=== PATIENT | female | born 1995 | race Caucasian/White ===

== ENCOUNTER 2020-05-01 14:50 | Emergency (ER) | payer OTHER ==
[~2020-05-01] VITALS: Ht 152.4 cm; Wt 65.3 kg
[2020-05-01 14:52] VITALS: BP 135/75
== END 2020-05-01 16:13 | disposition left against medical advice (07) ==
LOC: M ED 14:50
DX: Z53.21 Procedure and treatment not carried out due to patient leaving prior to being seen by health care provider (principal)

== ENCOUNTER → 2020-05-01 | Outpatient (CLI) | payer OTHER | LOC: M LAB 14:22 | PROVIDERS: ATTEND Nurse Practitioner Family | DX: Z01.89 Encounter for other specified special examinations (principal) ==

== ENCOUNTER → 2020-05-01 | Outpatient (REF) | payer OTHER | LOC: M SFHCLERA 13:34 | PROVIDERS: ATTEND Nurse Practitioner Family | DX: Z01.89 Encounter for other specified special examinations (principal) ==

== ENCOUNTER 2020-06-28 13:44 | Emergency (ER) | payer OTHER ==
[~2020-06-28] VITALS: Ht 154.9 cm; Wt 66.9 kg
[2020-06-28] MEDS ORDERED: PREN1TAB18 PO (14:09)
[2020-06-28 15:04] LABS: BASO % 0.5 % (0.0-1.0); EOS # 0.1 10^3/uL (0.0-0.5); EOS % 0.8 % (0.0-3.0); HEMATOCRIT 38.1 % (36.0-47.0); HEMOGLOBIN 12.6 g/dl (12.0-15.5); LYMPH # 1.7 10^3/uL (1.5-5.0); LYMPH % 20.5 % (24.0-44.0); MEAN CORPUSCULAR HEMOGLOBIN 29.8 pg (27.0-33.0); MEAN CORPUSCULAR HGB CONC 33.1 g/dl (32.0-36.5); MEAN CORPUSCULAR VOLUME 90.1 fl (80.0-96.0); MONO # 0.6 10^3/uL (0.0-0.8); MONO % 6.9 % (0.0-5.0); NEUTROPHILS # 5.9 10^3/uL (1.5-8.5); NEUTROPHILS % 70.5 % (36.0-66.0); PLATELET COUNT, AUTOMATED 217 10^3/uL (150-450); RED BLOOD COUNT 4.23 10^6/uL (4.00-5.40); WHITE BLOOD COUNT 8.3 10^3/uL (4.0-10.0)
[2020-06-28 16:05] LABS: ALBUMIN 3.4 GM/DL (3.2-5.2); ALT/SGPT 11 U/L (12-78); BILIRUBIN,DIRECT < 0.1 MG/DL (0.0-0.2); BILIRUBIN,TOTAL 0.3 MG/DL (0.2-1.0); BLOOD UREA NITROGEN 11 MG/DL (7-18); CALCIUM LEVEL 8.6 MG/DL (8.5-10.1); CARBON DIOXIDE LEVEL 27 MEQ/L (21-32); CHLORIDE LEVEL 109 MEQ/L (98-107); GLOMERULAR FILTRATION RATE > 60.0 (>60); GLUCOSE, FASTING 76 MG/DL (70-100); HCG, SERUM QUANTITATIVE 35516 MIU/ML; LIPASE 85 U/L (73-393); SODIUM LEVEL 141 MEQ/L (136-145); TOTAL PROTEIN 6.6 GM/DL (6.4-8.2)
--- NOTE | 2020-06-28 16:09 | REP ---
INDICATION: pelvic cramping. COMPARISON: None TECHNIQUE: Transvesical imaging FINDINGS: Within the uterus there is an anechoic structure with increased echoes surrounding it consistent with a decidual reaction. Within the gestational sac there is echogenic material consistent with a pole the mean crown-rump length measurement which is consistent with a 12 week 5 day gestational age. Based on that the estimated dated delivery is 01/05/2021. Doppler interrogation of the heart is a heart rate of 155 beats per minute. Also seen within the gestational sac there is a tiny accept act. The developing placenta is anterior. IMPRESSION: Early OB ultrasound as described above. <Electronically signed by Alexandro Garcia > 06/28/20 [id number]
[2020-06-28 16:55] VITALS: BP 123/58
== END 2020-06-28 17:02 | disposition home or self-care (01) ==
LOC: M ED 13:44
DX: O26.891 Other specified pregnancy related conditions, first trimester (principal); R10.2 Pelvic and perineal pain; Z3A.12 12 weeks gestation of pregnancy; O99.331 Smoking (tobacco) complicating pregnancy, first trimester; F17.210 Nicotine dependence, cigarettes, uncomplicated

== ENCOUNTER 2020-07-06 08:05 | Emergency (ER) | payer OTHER ==
[~2020-07-06] VITALS: Ht 154.9 cm; Wt 67.0 kg
[~2020-07-06 08:05] MED LIST: PREN1TAB18 PO
[2020-07-06] MEDS ORDERED: METOCLOPRAMIDE 10 MG TAB PO ONE (08:45)
[2020-07-06] MEDS ORDERED: REGL10TA6 PO (09:02)
[2020-07-06 09:43] VITALS: BP 127/65
== END 2020-07-06 09:46 | disposition home or self-care (01) ==
LOC: M ED 08:05
DX: O21.9 Vomiting of pregnancy, unspecified (principal); Z3A.13 13 weeks gestation of pregnancy; Z87.59 Personal history of other complications of pregnancy, childbirth and the puerperium; O99.511 Diseases of the respiratory system complicating pregnancy, first trimester; O99.331 Smoking (tobacco) complicating pregnancy, first trimester

== ENCOUNTER 2020-07-24 21:56 | Emergency (ER) | payer OTHER ==
[~2020-07-24] VITALS: Ht 154.9 cm; Wt 67.8 kg
[~2020-07-24 21:56] MED LIST changes: +REGL10TA6 PO
[2020-07-25] MEDS ORDERED: ACETAMINOPHEN 500 MG TAB PO ONE (00:45)
[2020-07-25 01:12] LABS: BASO # 0.1 10^3/uL (0.0-0.2); BASO % 0.5 % (0.0-1.0); EOS # 0.1 10^3/uL (0.0-0.5); EOS % 0.9 % (0.0-3.0); HEMATOCRIT 38.1 % (36.0-47.0); HEMOGLOBIN 12.6 g/dl (12.0-15.5); LYMPH # 2.6 10^3/uL (1.5-5.0); MEAN CORPUSCULAR HEMOGLOBIN 30.1 pg (27.0-33.0); MEAN CORPUSCULAR HGB CONC 33.1 g/dl (32.0-36.5); MEAN CORPUSCULAR VOLUME 91.1 fl (80.0-96.0); MONO # 0.6 10^3/uL (0.0-0.8); MONO % 6.3 % (0.0-5.0); NEUTROPHILS # 6.3 10^3/uL (1.5-8.5); NEUTROPHILS % 64.3 % (36.0-66.0); PLATELET COUNT, AUTOMATED 283 10^3/uL (150-450); RED BLOOD COUNT 4.18 10^6/uL (4.00-5.40); WHITE BLOOD COUNT 9.8 10^3/uL (4.0-10.0)
[2020-07-25 01:22] LABS: APPEARANCE, URINE CLEAR (CLEAR); BACTERIA, URINE AUTO NEGATIVE (NEGATIVE); BILIRUBIN, URINE AUTO NEGATIVE (NEGATIVE); BLOOD, URINE BLOOD NEGATIVE (NEGATIVE); COLOR, URINE YELLOW (YELLOW); GLUCOSE, URINE (UA) AUTO NEGATIVE (NEGATIVE); KETONE, URINE AUTO 1+ mg/dL (NEGATIVE); LEUKOCYTE ESTERASE, URINE AUTO 2+ (NEGATIVE); MUCUS, URINE SMALL (NEGATIVE); NITRITE, URINE AUTO NEGATIVE (NEGATIVE); PROTEIN, URINE AUTO NEGATIVE (NEGATIVE); RBC, URINE AUTO 2 /HPF (0-3); SPECIFIC GRAVITY URINE AUTO 1.026 (1.002-1.035); SQUAMOUS EPITHELIAL CELL UR AU 5 /HPF (0-6); WBC, URINE AUTO 9 /HPF (0-3)
[2020-07-25 01:38] LABS: BLOOD UREA NITROGEN 10 MG/DL (7-18); CALCIUM LEVEL 8.6 MG/DL (8.5-10.1); CARBON DIOXIDE LEVEL 26 MEQ/L (21-32); CHLORIDE LEVEL 105 MEQ/L (98-107); CREATININE FOR GFR 0.59 MG/DL (0.55-1.30); GLOMERULAR FILTRATION RATE > 60.0 (>60); GLUCOSE, FASTING 97 MG/DL (70-100); POTASSIUM SERUM 3.9 MEQ/L (3.5-5.1); SODIUM LEVEL 137 MEQ/L (136-145)
[2020-07-25] MEDS ORDERED: MACR100C43 PO (01:53)
[2020-07-25 01:55] VITALS: BP 115/84
[2020-07-25] MEDS ORDERED: NITROFURANTOIN (MACROBID) 100 MG CAP PO ONE (02:00)
== END 2020-07-25 02:15 | disposition home or self-care (01) ==
LOC: M ED 21:56
DX: O23.42 Unspecified infection of urinary tract in pregnancy, second trimester (principal); O26.892 Other specified pregnancy related conditions, second trimester; O99.512 Diseases of the respiratory system complicating pregnancy, second trimester; O99.332 Smoking (tobacco) complicating pregnancy, second trimester; Z87.59 Personal history of other complications of pregnancy, childbirth and the puerperium; Z3A.15 15 weeks gestation of pregnancy

== ENCOUNTER → 2020-08-14 | Outpatient (CLI) | payer OTHER ==
[~2020-08-14] MED LIST changes: +MACR100C43 PO
--- NOTE | 2020-08-15 10:44 | REP ---
INDICATION: ANATOMY COMPARISON: 06/28/2020 TECHNIQUE: Transabdominal obstetrical ultrasound with color Doppler evaluation. FINDINGS: Examination demonstrates a single live intrauterine in cephalic presentation. motion is identified by technologist. Placenta is noted anterior and grade 1 without evidence for placenta previa or abruption. Amniotic fluid volume is normal. Cervix measures 3.7 cm in length and appears closed.. Gestational age by LMP 19 weeks 3 days with JL 01/05/2021. Gestational age by current measurements 19 weeks 2 days with JL 01/06/2021. FHR equals 156 beats per minute. BPD: 4.6 cm 19 weeks 6 days HC: 16.7 cm 19 weeks 3 days AC: 13.7 cm 19 weeks 1 day FL: 2.9 cm 18 weeks 6 days HL: 2.9 cm 19 weeks 2 days HC/AC: 1.22 Estimated weight 273 grams (68thpercentile). Anatomical assessment demonstrates normal structures including cranium, choroid plexus, cavum, cerebellum/posterior fossa, facial features, lungs, diaphragm, stomach, cord insertion/three-vessel cord, kidneys/bladder, spine, and extremities. Limited evaluation of the heart/ventricular outflow tracts noted along with small echogenic focus in the left cardiac ventricle likely chordae tendineae. IMPRESSION: Single live intrauterine in cephalic presentation demonstrating appropriate estimated weight and growth. Limited evaluation of the heart/ventricular outflow tracts may warrant re-evaluation and follow-up. <Electronically signed by Zeyad Lopez > 08/15/20 [id number]
== END ==
LOC: M WHC 14:21
PROVIDERS: ATTEND Nurse Practitioner Family
DX: Z34.82 Encounter for supervision of other normal pregnancy, second trimester (principal); Z36.89 Encounter for other specified antenatal screening; Z3A.19 19 weeks gestation of pregnancy

== ENCOUNTER 2020-10-16 18:05 | Outpatient (CLI) | payer OTHER, SELFPAY ==
[~2020-10-16] VITALS: Ht 154.9 cm; Wt 74.7 kg
[2020-10-16 18:27] VITALS: BP 115/64
[2020-10-16 18:59] LABS: APPEARANCE, URINE HAZY (CLEAR); BACTERIA, URINE AUTO 1+ (NEGATIVE); BILIRUBIN, URINE AUTO NEGATIVE (NEGATIVE); BLOOD, URINE BLOOD NEGATIVE (NEGATIVE); COLOR, URINE YELLOW (YELLOW); GLUCOSE, URINE (UA) AUTO NEGATIVE (NEGATIVE); KETONE, URINE AUTO NEGATIVE (NEGATIVE); LEUKOCYTE ESTERASE, URINE AUTO 3+ (NEGATIVE); MUCUS, URINE SMALL (NEGATIVE); NITRITE, URINE AUTO NEGATIVE (NEGATIVE); PROTEIN, URINE AUTO NEGATIVE (NEGATIVE); RBC, URINE AUTO 2 /HPF (0-3); SPECIFIC GRAVITY URINE AUTO 1.019 (1.002-1.035); SQUAMOUS EPITHELIAL CELL UR AU 3 /HPF (0-6); UROBILINOGEN, URINE AUTO 0.2 mg/dL (0.0-2.0); WBC, URINE AUTO 13 /HPF (0-3)
[2020-10-16] MEDS ORDERED: FLUCONAZOLE 50MG TABLET PO ONE (19:05)
--- NOTE | 2020-10-16 19:28 | IPNPDOC ---
Obstetrical Progress Note Date of Service Oct 16, 2020 Subjective 25yo at 27+5 who presents for cramps x1d. She reports 2 noticable contractions during this time. She denied n/v/d, cp, sob, calle, visual changes, f/c, vb, lof, decreased fm, vaginal discharge, urinary sx. Objective Vital Signs Date Time Temp Pulse Resp B/P (MAP) Pulse Ox O2 Delivery O2 Flow Rate FiO2 10/16/20 18:27 98.6 78 18 115/64 (81) Assessment Heart Rate (FHR): 145 Variability: Moderate Accelerations: Positive Decelerations: None Heart Rate Tracing: Category I Tocometer Contractions: No Sterile Vaginal Examination Dilation: None Cervical Consistency: Firm Cervical Position: Posterior Postion/Presentation: Cephalic presentation (by US) Assessment and Plan Status: Reassuring Additional Comments 25yo at 27+5 who presents for cramps x1d. She reports 2 noticable contractions during this time. VS were normal. CAT I tracing appropriate for gestational age. On exam she had a visibly closed cervix that was C/T/H on SVE. Thick white vaginal discharge was noted, GILLIAN/WP were significant for budding yeast. On US MVP was 4.8cm, baby was cephalic and had +FM, the cervical length was 4.5cm and had no funneling or changes with valsalva. UA was contaminated. UCX was sent. Labor is unlikely at this time. - treated with fluconazole for vaginal candidiasis - strict PTL return precautions given - routine OB return precautions given - follow up at next SCOTT Corrales DO Oct 16, 2020 19:28
== END 2020-10-16 19:30 | disposition home or self-care (01) ==
LOC: M LDO 18:05
PROVIDERS: ATTEND Obstetrics & Gynecology
DX: O23.592 Infection of other part of genital tract in pregnancy, second trimester (principal); B37.9 Candidiasis, unspecified; Z3A.27 27 weeks gestation of pregnancy; O26.892 Other specified pregnancy related conditions, second trimester; R25.2 Cramp and spasm
CPT/HCPCS: 81001; 87086; G0378; G0463

== ENCOUNTER 2020-10-23 13:35 | Outpatient (CLI) | payer OTHER, SELFPAY ==
[~2020-10-23] VITALS: Ht 154.9 cm; Wt 76.0 kg
[2020-10-23 13:57] VITALS: BP 114/73
--- NOTE | 2020-10-23 15:21 | IPNPDOC ---
Obstetrical Progress Note Date of Service Oct 23, 2020 Subjective 25 yo @ 28+5 who presents c/o of decreased movement. reports she did kick counts and only got 3/10. she reports intercourse last night and is noting some spoting with wiping. she denies cx of LOF. she has no other concerns. FHR: 145, MOD EDIL,+ACCELS, -DECELS-CAT I tracing, mom feeling baby move now. Vitals: normal Lungs: NORMAL WORK OF BREATHING ABD: GRAVID Objective Vital Signs Date Time Temp Pulse Resp B/P (MAP) Pulse Ox O2 Delivery O2 Flow Rate FiO2 10/23/20 13:57 98.7 99 18 114/73 (87) 97 Room Air Assessment and Plan Additional Comments A/P 25 yo @ 28+5 who presents c/o of decreased movement. Hemodynamically stable. reactive NST and mom feeling baby move regularly now. -f/u in [place] as perviously scheduled -give strict return precautions. JAYCEE CROOKS MD Oct 23, 2020 15:21
== END 2020-10-23 15:30 | disposition home or self-care (01) ==
LOC: M LDO 13:35
PROVIDERS: ATTEND Obstetrics & Gynecology
DX: O36.8130 Decreased fetal movements, third trimester, not applicable or unspecified (principal); Z3A.28 28 weeks gestation of pregnancy

== ENCOUNTER 2020-12-02 20:32 | Outpatient (CLI) | payer OTHER ==
[~2020-12-02] VITALS: Ht 154.9 cm; Wt 79.5 kg
--- NOTE | 2020-12-02 20:47 | IPNPDOC ---
Text Note Date of Service The patient was seen on 12/02/20. NOTE Labor and Delivery Triage Note: S: 25yo at 34w4d presents with c/o decrease movement, contractions n04prea and pelvic pressure. Denies vaginal bleeding or LOF. Former patient of . [facility]. Currently transferring to [facility]. O: vss, AF no ctx Cat 1 tracing Gen: well appearing, NAD Abd: gravid, soft, nttp cx: long/ closed UA: neg A/P: 25yo not in PTL reassuring status -home with PTL precautions and FKCs. -f/u at nxt OB appt MD TIERA Belcher KENYA MD. December 02, 2020 20:47
[2020-12-02 20:57] VITALS: BP 118/82
== END 2020-12-02 22:30 | disposition home or self-care (01) ==
LOC: M LDO 20:32
PROVIDERS: ATTEND Obstetrics & Gynecology
DX: O36.8130 Decreased fetal movements, third trimester, not applicable or unspecified (principal); Z3A.34 34 weeks gestation of pregnancy; O47.03 False labor before 37 completed weeks of gestation, third trimester

== ENCOUNTER 2020-12-16 20:11 | Outpatient (CLI) | payer OTHER ==
[~2020-12-16] VITALS: Ht 154.9 cm; Wt 79.7 kg
[2020-12-16 21:00] VITALS: BP 127/78
[2020-12-16 23:32] VITALS: BP 118/65
--- NOTE | 2020-12-16 23:38 | IPNPDOC ---
Text Note Date of Service The patient was seen on 12/16/20. NOTE 25 yo female at 36 4/7 weeks presents with contractions and pelvic pressure for 1 day. No bleeding. No recent care. previous care through [facility]. O: AVSS NAD Abd: NT, gravid FHT: Cat. I [place]: Q2-5 minutes, mild SVE: 1cm/50%/-3 moderate ext: NT A/P 25 yo at 36 4/7 weeks with contractions, not in labor Pt observed for extended time Oral hydration Plan to establish care with [facility] for remainder of VS,Fishbone, I+O VS, Fishbone, I+O Vital Signs Date Time Temp Pulse Resp B/P (MAP) Pulse Ox O2 Delivery O2 Flow Rate FiO2 12/16/20 21:00 98.5 93 16 127/78 (94) Room Air LANIE SALGADO MD December 16, 2020 23:38
== END 2020-12-16 23:38 | disposition home or self-care (01) ==
LOC: M LDO 20:11
PROVIDERS: ATTEND Specialist
DX: O47.03 False labor before 37 completed weeks of gestation, third trimester (principal); Z3A.36 36 weeks gestation of pregnancy; O09.33 Supervision of pregnancy with insufficient antenatal care, third trimester

== ENCOUNTER 2021-07-08 13:06 | Emergency (ER) | payer OTHER ==
[~2021-07-08] VITALS: Ht 154.9 cm; Wt 75.3 kg
--- OUTSIDE RECORDS SUMMARY | 2021-07-08 13:15 | CCD ---
Author Author [facility] Organization [facility] Address Unknown Phone Unavailable Care Team Providers Care Brokerage Office Manager Name Role Phone ESTEBAN AVILA MD Unavailable Unavailable ESTEBAN AVILA MD Unavailable Unavailable ESTEBAN AVILA MD Unavailable Unavailable ESTEBAN AVILA MD Unavailable Unavailable ESTEBAN AVILA MD Unavailable Unavailable ESTEBAN AVILA MD Unavailable Unavailable ESTEBAN AVILA MD Unavailable Unavailable ESTEBAN AVILA MD Unavailable Unavailable ESTEBAN AVILA MD Unavailable Unavailable ESTEBAN AVILA MD Unavailable Unavailable ESTEBAN AVILA MD Unavailable Unavailable ESTEBAN AVILA MD Unavailable Unavailable ANGEL, GRECIA DARIN CUSTOMER COUNTER ASSOCIATE Unavailable Unavailable ANGEL, GRECIA DARIN CUSTOMER COUNTER ASSOCIATE Unavailable Unavailable ANGEL, GRECIA DARIN CUSTOMER COUNTER ASSOCIATE Unavailable Unavailable ANGEL, GRECIA DARIN CUSTOMER COUNTER ASSOCIATE Unavailable Unavailable ANGEL, GRECIA DARIN CUSTOMER COUNTER ASSOCIATE Unavailable Unavailable ANGEL, GRECIA DARIN CUSTOMER COUNTER ASSOCIATE Unavailable Unavailable ANGEL, GRECIA DARIN CUSTOMER COUNTER ASSOCIATE Unavailable Unavailable ANGEL, GRECIA DARIN CUSTOMER COUNTER ASSOCIATE Unavailable Unavailable ANGEL, GRECIA DARIN CUSTOMER COUNTER ASSOCIATE Unavailable Unavailable ANGEL, GRECIA DARIN CUSTOMER COUNTER ASSOCIATE Unavailable Unavailable ANGEL, GRECIA DARIN CUSTOMER COUNTER ASSOCIATE Unavailable Unavailable ANGEL, GRECIA DARIN CUSTOMER COUNTER ASSOCIATE Unavailable Unavailable ANGEL, GRECIA DARIN CUSTOMER COUNTER ASSOCIATE Unavailable Unavailable ANGEL, GRECIA DARIN CUSTOMER COUNTER ASSOCIATE Unavailable Unavailable ANGEL, GRECIA DARIN CUSTOMER COUNTER ASSOCIATE Unavailable Unavailable ANGEL, GRECIA DARIN CUSTOMER COUNTER ASSOCIATE Unavailable Unavailable ANGEL, GRECIA DARIN CUSTOMER COUNTER ASSOCIATE Unavailable Unavailable ANGEL, GRECIA DARIN CUSTOMER COUNTER ASSOCIATE Unavailable Unavailable ANGEL, GRECIA DARIN CUSTOMER COUNTER ASSOCIATE Unavailable Unavailable ANGEL, GRECIA DARIN CUSTOMER COUNTER ASSOCIATE Unavailable Unavailable ANGEL, GRECIA DARIN CUSTOMER COUNTER ASSOCIATE Unavailable Unavailable ANGEL, GRECIA DARIN CUSTOMER COUNTER ASSOCIATE Unavailable Unavailable ANGEL, GRECIA DARIN CUSTOMER COUNTER ASSOCIATE Unavailable Unavailable NANETTE, F UMANG MD Unavailable Unavailable NANETTE, F UMANG MD Unavailable Unavailable NANETTE, F UMANG MD Unavailable Unavailable NANETTE, F UMANG MD Unavailable Unavailable NANETTE, F UMANG MD Unavailable Unavailable NANETTE, F UMANG MD Unavailable Unavailable NANETTE, F UMANG MD Unavailable Unavailable NANETTE, F UMANG MD Unavailable Unavailable NANETTE, F UMANG MD Unavailable Unavailable NANETTE, F UMANG MD Unavailable Unavailable NANETTE, F UMANG MD Unavailable Unavailable NANETTE, F UMANG MD Unavailable Unavailable NANETTE, F UMANG MD Unavailable Unavailable NANETTE, F UMANG MD Unavailable Unavailable NANETTE, F UMANG MD Unavailable Unavailable NANETTE, F UMANG MD Unavailable Unavailable NANETTE, F UMANG MD Unavailable Unavailable NANETTE, F UMANG MD Unavailable Unavailable NANETTE, F UMANG MD Unavailable Unavailable NANETTE, F UMANG MD Unavailable Unavailable NANETTE, F UMANG MD Unavailable Unavailable NANETTE, F UMANG MD Unavailable Unavailable NANETTE, F UMANG MD Unavailable Unavailable NANETTE, F UMANG MD Unavailable Unavailable NANETTE, F UMANG MD Unavailable Unavailable NANETTE, F UMANG MD Unavailable Unavailable NANETTE, F UMANG MD Unavailable Unavailable NANETTE, F UMANG MD Unavailable Unavailable NANETTE, F UMANG MD Unavailable Unavailable NANETTE, F UMANG MD Unavailable Unavailable NANETTE, F UMANG MD Unavailable Unavailable UNKNOWN Unavailable Unavailable Xenia Sanchez MD Unavailable Unavailable Xenia Sanchez MD Unavailable Unavailable Xenia Sanchez MD Unavailable Unavailable Xenia Sanchez MD Unavailable Unavailable Xenia Sanchez MD Unavailable Unavailable Xenia Sanchez MD Unavailable Unavailable Xenia Sanchez MD Unavailable Unavailable Xenia Sanchez MD Unavailable Unavailable Xenia Sanchez MD Unavailable Unavailable Xenia Sanchez MD Unavailable Unavailable Xenia Sanchez MD Unavailable Unavailable Xenia Sanchez MD Unavailable Unavailable Xenia Sanchez MD Unavailable Unavailable Xenia Sanchez MD Unavailable Unavailable Xenia Sanchez MD Unavailable Unavailable Xenia Sanchez MD Unavailable Unavailable Xenia Sanchez MD Unavailable Unavailable Xenia Sanchez MD Unavailable Unavailable Xenia Sanchez MD Unavailable Unavailable Xenia Sanchez MD Unavailable Unavailable Xenia Sanchez MD Unavailable Unavailable Xenia Sanchez MD Unavailable Unavailable Xenia Sanchez MD Unavailable Unavailable Xenia Sanchez MD Unavailable Unavailable Xenia Sanchez MD Unavailable Unavailable Xenia Sanchez MD Unavailable Unavailable Xenia Sanchez MD Unavailable Unavailable Xenia Sanchez MD Unavailable Unavailable Xenia Sanchez MD Unavailable Unavailable Xenia Sanchez MD Unavailable Unavailable Xenia Sanchez MD Unavailable Unavailable Xenia Sanchez MD Unavailable Unavailable Xenia Sanchez MD Unavailable Unavailable Xenia Sanchez MD Unavailable Unavailable Xenia Sanchez MD Unavailable Unavailable Xenia Sanchez MD Unavailable Unavailable Jia F Brown, F MASTER CONTROL ENGINEER MASTER CONTROL ENGINEER Unavailable Unavailable Jia F Brown, F MASTER CONTROL ENGINEER MASTER CONTROL ENGINEER Unavailable Unavailable BROWN, ALICIA JIA CUSTOMER COUNTER ASSOCIATE Unavailable Unavailable BROWN, ALICIA JIA CUSTOMER COUNTER ASSOCIATE Unavailable Unavailable BROWN, ALICIA JIA CUSTOMER COUNTER ASSOCIATE Unavailable Unavailable BROWN, ALICIA JIA CUSTOMER COUNTER ASSOCIATE Unavailable Unavailable BROWN, ALICIA JIA CUSTOMER COUNTER ASSOCIATE Unavailable Unavailable BROWN, ALICIA JIA CUSTOMER COUNTER ASSOCIATE Unavailable Unavailable BROWN, ALICIA JIA CUSTOMER COUNTER ASSOCIATE Unavailable Unavailable BROWN, ALICIA JIA CUSTOMER COUNTER ASSOCIATE Unavailable Unavailable BROWN, ALICIA JIA CUSTOMER COUNTER ASSOCIATE Unavailable Unavailable BROWN, ALICIA JIA CUSTOMER COUNTER ASSOCIATE Unavailable Unavailable BROWN, ALICIA JIA CUSTOMER COUNTER ASSOCIATE Unavailable Unavailable BROWN, ALICIA JIA CUSTOMER COUNTER ASSOCIATE Unavailable Unavailable BROWN, ALICIA JIA CUSTOMER COUNTER ASSOCIATE Unavailable Unavailable BROWN, ALICIA JIA CUSTOMER COUNTER ASSOCIATE Unavailable Unavailable BROWN, ALICIA JIA CUSTOMER COUNTER ASSOCIATE Unavailable Unavailable BROWN, ALICIA JIA CUSTOMER COUNTER ASSOCIATE Unavailable Unavailable BROWN, ALICIA JIA CUSTOMER COUNTER ASSOCIATE Unavailable Unavailable BROWN, ALICIA JIA CUSTOMER COUNTER ASSOCIATE Unavailable Unavailable BROWN, ALICIA JIA CUSTOMER COUNTER ASSOCIATE Unavailable Unavailable BROWN, ALICIA JIA CUSTOMER COUNTER ASSOCIATE Unavailable Unavailable BROWN, ALICIA JIA CUSTOMER COUNTER ASSOCIATE Unavailable Unavailable BROWN, ALICIA JIA CUSTOMER COUNTER ASSOCIATE Unavailable Unavailable BROWN, ALICIA JIA CUSTOMER COUNTER ASSOCIATE Unavailable Unavailable BROWN, ALICIA JIA CUSTOMER COUNTER ASSOCIATE Unavailable Unavailable BROWN, ALICIA JIA CUSTOMER COUNTER ASSOCIATE Unavailable Unavailable BROWN, ALICIA JIA CUSTOMER COUNTER ASSOCIATE Unavailable Unavailable BROWN, ALICIA JIA CUSTOMER COUNTER ASSOCIATE Unavailable Unavailable BROWN, ALICIA JIA CUSTOMER COUNTER ASSOCIATE Unavailable Unavailable BROWN, ALICIA JIA CUSTOMER COUNTER ASSOCIATE Unavailable Unavailable BROWN, ALICIA JIA CUSTOMER COUNTER ASSOCIATE Unavailable Unavailable BROWN, ALICIA JIA CUSTOMER COUNTER ASSOCIATE Unavailable Unavailable BROWN, ALICIA JIA CUSTOMER COUNTER ASSOCIATE Unavailable Unavailable BROWN, ALICIA JIA CUSTOMER COUNTER ASSOCIATE Unavailable Unavailable BROWN, ALICIA JIA CUSTOMER COUNTER ASSOCIATE Unavailable Unavailable BROWN, ALICIA JIA CUSTOMER COUNTER ASSOCIATE Unavailable Unavailable BROWN, ALICIA JIA CUSTOMER COUNTER ASSOCIATE Unavailable Unavailable BROWN, ALICIA JIA CUSTOMER COUNTER ASSOCIATE Unavailable Unavailable BROWN, ALICIA JIA CUSTOMER COUNTER ASSOCIATE Unavailable Unavailable BROWN, ALICIA JIA CUSTOMER COUNTER ASSOCIATE Unavailable Unavailable BROWN, ALICIA JIA CUSTOMER COUNTER ASSOCIATE Unavailable Unavailable NON, PHYSICIAN STAFF Unavailable Unavailable Nwogu, U Jose DO Unavailable Unavailable Nwogu, U Jose DO Unavailable Unavailable Nwogu, U Jose DO Unavailable Unavailable Nwogu, U Jose DO Unavailable Unavailable Nwogu, U Jose DO Unavailable Unavailable Nwogu, U Jose DO Unavailable Unavailable Nwogu, U Jose DO Unavailable Unavailable Nwogu, U Jose DO Unavailable Unavailable Nwogu, U Jose DO Unavailable Unavailable Nwogu, U Jose DO Unavailable Unavailable Nwogu, U Jose DO Unavailable Unavailable Nwogu, U Jose DO Unavailable Unavailable Nwogu, U Jose DO Unavailable Unavailable Nwogu, U Jose DO Unavailable Unavailable Nwogu, U Jose DO Unavailable Unavailable Nwogu, U Jose DO Unavailable Unavailable Nwogu, U Jose DO Unavailable Unavailable Nwogu, U Jose DO Unavailable Unavailable Nwogu, U Jose DO Unavailable Unavailable Nwogu, U Jose DO Unavailable Unavailable Nwogu, U Jose DO Unavailable Unavailable Re-disclosure Warning The records that you are about to access may contain information from federally-assisted alcohol or drug abuse programs. If such information is present, then the following federally mandated warning applies: This information has been disclosed to you from records protected by federal confidentiality rules (42 CFR part 2). The federal rules prohibit you from making any further disclosure of this information unless further disclosure is expressly permitted by the written consent of the person to whom it pertains or as otherwise permitted by 42 CFR part 2. A general authorization for the release of medical or other information is NOT sufficient for this purpose. The Federal rules restrict any use of the information to criminally investigate or prosecute any alcohol or drug abuse patient.The records that you are about to access may contain highly sensitive health information, the redisclosure of which is protected by Article 27-F of the [facility] Public Health law. If you continue you may have access to information: Regarding HIV / AIDS; Provided by facilities licensed or operated by the [facility] Office of Mental Health; or Provided by the [facility] Office for People With Developmental Disabilities. If such information is present, then the following [facility] mandated warning applies: This information has been disclosed to you from confidential records which are protected by state law. State law prohibits you from making any further disclosure of this information without the specific written consent of the person to whom it pertains, or as otherwise permitted by law. Any unauthorized further disclosure in violation of state law may result in a fine or usp sentence or both. A general authorization for the release of medical or other information is NOT sufficient authorization for further disc losure. Allergies and Adverse Reactions Type Description Substance Reaction Status Data Source(s ) No Known Drug Allergies No Known Drug Allergies [facility] No Known Environmental Allergies No Known Environmental Al lergies [facility] No Known Food Allergies No Known Food Allergies [facility] No Known Allergies No Known Allergies [facility] Encounters Encounter Providers Location Date Indications Data Source(s ) Outpatient Attender: DARIN ANGEL NP Family Practice 03/12/2021 01 :30:00 PM EDT [facility] ([facility]) Outpatient Attender: DARIN ANGEL NPConsultant: STAFF NON 03/12/2021 01:17:00 PM EDT - 03/12/2021 01:17:00 PM EDT [facility] Outpatient Attender: DARIN ANGEL NP 021 02:09:00 PM EDT - 02/19/2021 02:09:00 PM EDT [facility] Outpatient Attender: DEEPAK AVILA MD 12/26 10:04:00 AM EDT - 01/06/2021 11:01:00 AM EDT [facility] Inpatient Attender: DEEPAK AVILA MDConsultant: STAFF NON 01/06/2021 10:04:00 AM EDT - 01/08/2021 04:28:00 PM EDT [facility] Patient discharged. Outpatient Attender: Jose Santos DOConsultant: STAFF NON 01/05/2021 02:34:00 PM EDT - 01/05/2021 02:34:00 PM EDT [facility] Outpatient Attender: UMANG FITZPATRICK MDConsultant: STAFF NON 01/02/2021 10:58:00 PM EDT - 01/02/2021 11:52:00 PM EDT [facility] Patient discharged. Outpatient Attender: Jose Santos DOConsultant: STAFF NON 12/29/2020 05:15:00 PM EDT - 12/29/2020 06:50:00 PM EDT [facility] Patient discharged. Outpatient Attender: UMANG FITZPATRICK MDConsultant: STAFF NON 12/29/2020 01:27:00 PM EDT - 12/29/2020 01:27:00 PM EDT [facility] Outpatient Attender: UMANG FAULKNERonsultant: STAFF NON 12/28/2020 01:34:00 PM EDT - 12/28/2020 02:34:00 PM EDT [facility] Patient discharged. Outpatient Attender: UMANG FITZPATRICK MDConsultant: STAFF NON 12/22/2020 01:56:00 PM EDT - 12/22/2020 01:56:00 PM EDT [facility] Outpatient Attender: Efe Sanchez MDAdmitter: Efe scott MD 12/21/2020 04:04:00 AM EDT - 12/21/2020 05:39:00 AM EDT RULE OUT LABOR BLEEDING [facility] RULE OUT LABOR BLEEDING Patient discharged. Outpatient Attender: UMANG FITZPATRICK MDConsultant: STAFF NON 12/05/2020 10:08:00 PM EDT - 12/05/2020 11:34:00 PM EDT [facility] Patient discharged. Outpatient Attender: UMANG FITZPATRICK MDConsultant: STAFF NON 11/08/2020 11:44:00 PM EDT - 11/09/2020 01:00:00 AM EDT [facility] Patient discharged. Outpatient Attender: Jose Santos DOConsultant: STAFF NON 11/07/2020 02:01:00 PM EDT - 11/07/2020 06:10:00 PM EDT [facility] Patient discharged. Outpatient Attender: JIA COLLINS NP CPSCAORT-CPSGNOBG 07/28 09:18:00 AM EST - 08/10/2020 09:19:00 AM EST [facility] Patient discharged. Outpatient Attender: JIA COLLINS NP CPSCAORT-CPSGNOBG 05/28 10:32:00 AM EST - 06/14/2020 10:33:00 AM EST [facility] Patient discharged. Outpatient CPSCAORT-LABEJN 06/02/2020 08:06:00 PM [facility] Outpatient Attender: JIA COLLINS NP CPSCAORT-CPSGNOBG 12/2019 04:00:00 PM [facility] Outpatient Attender: JIA COLLINS NP ED-LABPNP 2019 02:53:00 PM EST - 06/02/2020 02:54:00 PM EST [id number] [facility] [id number] Patient discharged. Outpatient Attender: ROSALIA BURGOS-LABEJN 05/17/2020 02:44:00 PM EDT Z3A.01,Z34.81 [facility] Z3A.01,Z34.81 Outpatient Attender: DUKE Collins FNPAttender: JIA COLLINS NP ED-LAB 05/17/2020 11:39:00 AM EDT - 05/17/2020 11:40:00 AM EDT Z3A01 [facility] Z3A01 Patient discharged. Outpatient Attender: JIA COLLINS NP CPSCAORT-CPSGNOBG 04/28 10:40:00 AM EDT - 05/17/2020 10:41:00 AM EDT [facility] Patient discharged. Outpatient Attender: JIA COLLINS NP ED-IMAG 2019 10:59:00 AM EDT - 05/16/2020 11:00:00 AM EDT DATING & VIABILITY [facility] DATING & VIABILITY Patient discharged. Outpatient Attender: DUKE Collins FNPAttender: JIA COLLINS NP ED-LAB 05/08/2020 11:03:00 AM EDT - 05/08/2020 11:04:00 AM EDT [address] Z3A01 Patient discharged. Outpatient CPSCAORT-LABEJN 05/05/2020 02:58:00 PM EDT [facility] Outpatient Attender: DUKE Collins FNPAttender: JIA COLLINS CUSTOMER COUNTER ASSOCIATE ED-LAB 05/05/2020 09:36:00 AM EDT - 05/05/2020 09:37:00 AM EDT Z01 [facility] Z3A01 Patient discharged. Medications Medication Brand Name Start Date Product Form Dose Route Admi nistrative Instructions Pharmacy Instructions Status Indications Reaction Description Data Source(s) Nortrel (28) Nortrel 35 (28) 03/12/2021 12:00:00 AM EDT ORAL active [facility] ([facility]) No Active Medications 02/19/2021 12:00:00 AM EDT completed [facility] ([facility]) 168 HR Ethinyl Estradiol 0.62361 MG/HR / norelgestromin 0.14201 MG/HR Transdermal Patch [Xulane] Xulane 02/19/2021 12:00:00 AM EDT completed [facility] ([facility]) Sulfamethoxazole 800 MG / Trimethoprim 160 MG Oral Tablet [B actrim] Bactrim DS 01/03/2021 12:00:00 AM EDT ORAL completed [facility] ([facility]) 0.75 % 2020 12:00:00 AM EDT gel 70 INSERT 1 APPLICATORFUL INTO VAGINA AT BEDTIME INSERT 1 APPLICATORFUL INTO VAGINA AT BEDTIME SOLD: 05/27/2020 [facility] Insurance Providers Payer name Policy type / Coverage type Policy ID Covered democrat ID Covered democrat's relationship to hodges Policy [place] Plan Information [facility] I [id number] Self [id number] EXCELLUS C [id number] Self [id number] EXCELLUS BLUE CROSS [id number] [facility] [facility] [place] MAN -PHYSICIAN [id number] 18 [id number] [place] [id number] 18 [id number] [place] [facility] [place] MAN -PHYSICIAN [id number] [place] [place] [id number] 18 [id number] [place] [facility] HEA [id number] S [id number] SELF PAY ONLY SP EAST HUMANA [id number] [facility] [id number] HUMA[facility] EAST REG O [id number] S [id number] [facility] [place] [id number] Unemployed [id number] [place] [place] [id number] S [id number] LAK[place]HA [id number] SP [id number] [place] [place] [id number] S [id number] [place] MEDICAID MANAGED CARE [id number] SP [id number] [facility] MEDICAID [id number] SP [id number] F BLUE CROSS OTHER [id number] SM [id number] CCS MEDICAID [id number] SP [id number] F BLUE CROSS OTHER [id number] SM [id number] EXCELLUS BLUE CROSS [id number] SP [id number] EXCELLUS BLUE CROSS [id number] SP [id number] CCS MEDICAID [id number] SP [id number] F CCS MEDICAID [id number] SP [id number] F EXCELLUS BLUE CROSS [id number] SP [id number] EXCELLUS BLUE CROSS [id number] SP [id number] [facility] COMM[facility] PLAN [id number] SP [id number] SELF PAY UNAVAILABLE SP UNAVAILA BLE LAKESHA [id number] SP [id number] [facility] I [facility] [id number] 18 [id number] [facility] C[facility] OF [facility] MAN -I/P [id number] 18 [id number] Problems, Conditions, and Diagnoses Code Display Name Description Problem Type Effective Dates Data Source(s) Z370 Single live Single live Diagnosis 01/06/2021 10:04:00 AM EDT [facility] [id number] Labor and delivery complicat ed by cord around neck, without compression, not applicable or unspecified Labor and delivery complicated by cord a round neck, without compression, not applicable or unspecified Diagnosis 01/06/2021 10:04:00 AM [facility] O76 Abnormality in heart rate and rhyt hm complicating labor and delivery Abnormality in heart rate and rhythm complicating labor and delivery Diagnosis 01/06/2021 10:04:00 AM [facility] O770 Labor and delivery complicated by meconi um in amniotic fluid Labor and delivery complicated by meconium in amniotic fluid Diagnosis 06/2021 10:04:00 AM [facility] [id number] Nicotine dependence, cigarettes, uncompl icated Nicotine dependence, cigarettes, uncomplicated Diagnosis 01/06/2021 10:04:00 AM [facility] Z3A39 39 weeks gestation of 39 weeks gestation of Diagnosis 01/06/2021 10:04:00 AM [facility] [id number] Smoking (tobacco) complicating childbirt h Smoking (tobacco) complicating childbirth Diagnosis 01/06/2021 10:04:00 AM [facility] F22847 Smoking (tobacco) complicating , third trimester Smoking (tobacco) complicating , third trimester Diagnosis 12/26 10:04:00 AM [facility] Z3483 Encounter for supervision of other javan l , third trimester Encounter for supervision of other normal , third trimester Diagnosis 01/05/2021 02:34:00 PM [facility] Z3A38 38 weeks gestation of 38 weeks gestation of Diagnosis 01/02/2021 10:58:00 PM [facility] [id number] Decreased movements, t hird trimester, not applicable or unspecified Decreased movements, third trimest er, not applicable or unspecified Diagnosis 01/02/2021 10:58:00 PM [facility] Z369 Encounter for screening, unspe cified Encounter for screening, unspecified Diagnosis 12/28/2020 01:34:00 PM [facility] Z3A37 37 weeks gestation of 37 weeks gestation of Diagnosis 12/22/2020 01:56:00 PM [facility] Z3A34 34 weeks gestation of 34 weeks gestation of Diagnosis 12/05/2020 10:08:00 PM [facility] O4703 False labor before 37 completed weeks of gestation, third trimester False labor before 37 completed weeks of gestation, third trimester Diagnosis 12/05[facility] 31 weeks gestation of 31 weeks gestation of Diagnosis 11/08/2020 [facility]:44[facility] Z[facility]A30 30 weeks gestation of 30 weeks gestation of Diagnosis 11/07/2020 02:01:00 PM [facility] [id number] Maternal care for other spec ified problems, third trimester, not applicable or unspecified Maternal care for other specified problems, third trimester, not applicable or unspecified Diagnosis 021 02:01:00 PM [facility] R82.998 OTHER ABNORMAL FINDINGS IN URINE OTHER ABNORMAL FINDINGS IN URINE Diagnosis 06/02/2020 04:00:00 PM [facility] Z34.81 Encounter for supervision of other javan l , first trimester ENCOUNTER FOR SUPRVSN OF NORMAL , FIRST TRIMESTER Diagnosis 06/02/2020 04:00:00 PM [facility] N87.1 Moderate cervical dysplasia MODERATE CERVICAL DYSPLASI A Diagnosis 05/17/2020 11:39:00 AM [facility] Z3A.01 Less than 8 weeks gestation of LESS THAN 8 WEEKS GESTATION OF Diagnosis 05/17/2020 11:39:00 AM [facility] O99.891 OTH DISEASES AND CONDITIONS COMPLICATING OTH DISEASES AND CONDITIONS COMPLICATING Diagnosis 05/17/2020 11:39:00 AM [facility] Z34.81 Encounter for supervision of other javan l , first trimester ENCOUNTER FOR SUPRVSN OF NORMAL , FIRST TRIMESTER Diagnosis 05/17/2020 11:39:00 AM [facility] Surgeries/Procedures Procedure Description Date Indications Data Source(s) OFFICE OUTPATIENT VISIT 25 MINUTES 03/12/2021 12:00:00 AM [facility] ([facility]) Care Only 02/19/2021 12:00:00 AM [facility] Introduction of Anesthetic Agent into Spinal Canal, Pe rcutaneous Approach Introduction of Anesthetic Agent into Spinal Canal, Percutaneous Approac 01/06/2021 12:00:00 AM [facility] Delivery of Products of Conception, External Approach Delivery of Products of Conception, External Approach 01/06/2021 12:00:[address] [facility] Drainage of Amniotic Fluid, Therapeutic from Products of Conception, Via Natural or Artificial Opening Drainage of Amniotic Fluid, Therapeutic from Products of Conception, Via Natural or Artificial Opening 01/06/2021 12:00:00 AM [facility] Introduction of Electrolytic and Water B alance Substance into Peripheral Vein, Percutaneous Approach Introduction of Electrolytic and Water B alance Substance into Peripheral Vein, Percutaneous Approach 01/06/2021 12:00:00 AM [facility] Monitoring of Products of Conception, Ca rdiac Electrical Activity, External Approach Monitoring of Products of Conception, Ca rdiac Electrical Activity, External Approach 01/06/2021 12:00:00 AM [facility] Non-Stress Test 12/29/2020 12:00:00 AM [facility] ([facility]) Antepartum F/U visit 12/22/2020 12:00:00 AM [facility] ([facility]) OFFICE OUTPATIENT VISIT 10 MINUTES OFFICE/OUTPATIENT VISIT E ST 06/02/2020 12:00:00 AM [facility] IADNA NEISSERIA GONORRHOEAE AMPLIFIED PROBE TQ N.GONORRHOEAE DNA AMP PROB 05/17/2020 12:00:00 AM [facility] IADNA CHLAMYDIA TRACHOMATIS AMPLIFIED PROBE TQ CHYLMD TRACH DNA AMP PROBE 05/17/2020 12:00:00 AM [facility] CYTP CERV/VAG AUTO THIN LAYER PREP MNL SCREEN CYTOPATH C/V T HIN LAYER 05/17/2020 12:00:00 AM [facility] IADNA TRICHOMONAS VAGINALIS DIRECT PROBE TQ TRICHOMONAS VAGI N DIR PROBE 05/17/2020 12:00:00 AM [facility] IADNA GARDNERELLA VAGINALIS DIRECT PROBE TQ MENDOZA VAG DNA DIR PROBE 05/17/2020 12:00:00 AM [facility] IADNA YOLETTE SPECIES DIRECT PROBE TQ YOLETTE DNA DIR PROBE 05/17/2020 12:00:00 AM [facility] ANTIBODY TOXOPLASMA TOXOPLASMA ANTIBODY 05/17/2020 12:00:00 AM [facility] [id number] OPIATES 1 OR MORE 05/17/2020 12:00:00 AM [facility] LEAD ASSAY OF LEAD 05/17/2020 12:00:00 AM [facility] ANTIBODY VARICELLA-ZOSTER VARICELLA-ZOSTER ANTIBODY 05/17/2020 1 2:00:00 AM [facility] THYROID STIMULATING HORMONE TSH ASSAY THYROID STIM HORMONE 1 12:00:00 AM [facility] ANTIBODY TOXOPLASMA IGM TOXOPLASMA ANTIBODY IGM 05/17/2020 12:00:00 AM [facility] [address]394 DRUG TEST PRSMV CHEM ANLYZR 05/17/2020 12:00:00 AM [facility] IAAD EIA HEPATITIS B SURFACE ANTIGEN HEPATITIS B SURFACE AG IA 05/17/2020 12:00:00 AM [facility] ANTIBODY TREPONEMA PALLIDUM TREPONEMA PALLIDUM 05/17/2020 12:00:00 AM [facility] IAAD EIA HIV-1 AG W/HIV-1&HIV-2 ANTBDY SINGLE HIV-1 AG W/HIV -1 & HIV-2 AB 05/17/2020 12:00:00 AM [facility] ANTIBODY RUBELLA RUBELLA ANTIBODY 05/17/2020 12:00:00 AM [facility] HEPATITIS C ANTIBODY HEPATITIS C AB TEST 05/17/2020 12:00:00 AM [facility] COLLECTION VENOUS BLOOD VENIPUNCTURE ROUTINE VENIPUNCTURE 12:00:00 AM [facility] BLOOD COUNT COMPLETE AUTO&AUTO DIFRNTL WBC COUNT COMPLETE CB C W/AUTO DIFF WBC 05/17/2020 12:00:00 AM [facility] [address]25 DRUG SCREEN QUANTALCOHOLS 05/17/2020 12:00:00 AM [facility] CFTR GENE ANALYSIS COMMON VARIANTS CFTR GENE COM VARIANTS 12:00:00 AM [facility] IADNA NEISSERIA GONORRHOEAE AMPLIFIED PROBE TQ 020 12:00:00 AM [facility] IADNA CHLAMYDIA TRACHOMATIS AMPLIFIED PROBE TQ 020 12:00:00 AM [facility] IADNA TRICHOMONAS VAGINALIS DIRECT PROBE TQ 05/17/2020 12:00:00 AM [facility] IADNA GARDNERELLA VAGINALIS DIRECT PROBE TQ 05/17/2020 12:00:00 AM [facility] IADNA YOLETTE SPECIES DIRECT PROBE TQ 05/17/2020 12:00 :00 AM [facility] CFTR GENE ANALYSIS COMMON VARIANTS 05/17/2020 12:00:00 AM [facility] ANTIBODY TOXOPLASMA 05/17/2020 12:00:00 AM [facility] LEAD 05/17/2020 12:00:00 AM [facility] ANTIBODY VARICELLA-ZOSTER 05/17/2020 12:00:00 AM [facility] ANTIBODY TOXOPLASMA IGM 05/17/2020 12:00:00 AM [facility] IAAD EIA HEPATITIS B SURFACE ANTIGEN 05/17/2020 12:00: 00 AM [facility] [id number] 05/17/2020 12:00:[address] [facility] ANTIBODY TREPONEMA PALLIDUM 05/17/2020 12:00:00 AM [facility] IAAD EIA HIV-1 AG W/HIV-1&HIV-2 ANTBDY SINGLE 05/17/20 20 12:00:00 AM [facility] ANTIBODY RUBELLA 05/17/2020 12:00:00 AM [facility] HEPATITIS C ANTIBODY 05/17/2020 12:00:00 AM [facility] Results ID Date Data Source [id number] 03/12/2021 01:23:00 PM EDT [facility] ([facility]) Name Value Range Interpretation Code Description Data Dolores rce(s) Supporting Document(s) Choriogonadotropin.beta subunit ( test) [Pres ence] in Urine Laboratory test result [facility] ([facility]) ID Date Data Source [id number] 02/19/2021 03:17:00 PM EDT [facility] ([facility]) Name Value Range Interpretation Code Description Data Dolores rce(s) Supporting Document(s) Chlamydia trachomatis,Bushra Laboratory test result [facility] ([facility]) {SOURCE: Neisseria gonorrhoeae,Bushra Laboratory test result [facility] ([facility]) {SOURCE: ID Date Data Source [id number] 02/22/2021 07:02:00 AM EDT [facility] Name Value Range Interpretation Code Description Data Dolores rce(s) Supporting Document(s) Chlamydia trachomatis rRNA [Presence] in Unspecified specimen by Probe and target amplification method Negative Negative [facility] Neisseria gonorrhoeae rRNA [Presence] in Unspecified specimen by Probe and target amplification method Negative Negative [facility] ID Date Data Source [id number] 02/19/2021 03:17:00 PM EDT [facility] ([facility]) Name Value Range Interpretation Code Description Data Dolores rce(s) Supporting Document(s) Cytology report of Cervical or vaginal smear or scrapi ng Cyto stain.thin prep Laboratory test result [facility] ([facility]) ID Date Data Source [id number] 01/07/2021 08:16:00 AM EDT [facility] Name Value Range Interpretation Code Description Data Dolores rce(s) Supporting Document(s) CBC W/AUTOMATED DIFF [facility] COMPLETE BLOOD COUNT Leukocytes [#/volume] in Blood by Automated count 14.7 10^3/uL 4.2 - 11.0 H [facility] Erythrocytes [#/volume] in Blood by Automated count 3.18 10^6/uL 4. 20 - 5.40 L [facility] Hemoglobin [Mass/volume] in Blood 9.0 g/dL 12.0 - 16.0 L [facility] Hematocrit [Volume Fraction] of Blood by Automated count 27.3 % 3 7.0 - 47.0 L [facility] Erythrocyte mean corpuscular volume [Entitic volume] by Auto mated count 85.8 fL 81.0 - 101 [facility] Erythrocyte mean corpuscular hemoglobin [Entitic mass] by Automated count 28.3 pg 27.0 - 34.0 [facility] Erythrocyte mean corpuscular hemoglobin concentration [Mass/volume] by Automated count 33.0 g/dL 31.0 - 36.0 [facility] Erythrocyte distribution width [Ratio] by Automated count 14.2 % 11.5 - 14.5 [facility] Platelets [#/volume] in Blood by Automated count 217 10^3/uL 150 - 45 0 [facility] Platelet mean volume [Entitic volume] in Blood by Automated count 11.0 fL 7.4 - 10.4 H [facility] Neutrophils/100 leukocytes in Blood by Automated count 70.9 % 37. 0 - 80.0 [facility] Lymphocytes/100 leukocytes in Blood by Manual count 17.8 % 25.0 - 40.0 L [facility] Monocytes/100 leukocytes in Blood by Automated count 7.4 % 3.0 - 8.0 [facility] Eosinophils/100 leukocytes in Blood by Automated count 0.8 % 0.0 - 7.0 [facility] 0.4 %IG 2.7 % 0.0 - 0.0 [facility] %NR[facility] 0.0 % 0.0 - 0.0 [facility] al Neutrophils [#/volume] in Blood by Automated count 10.42 10^3/uL 2. 00 - 6.90 H [facility] Lymphocytes [#/volume] in Blood by Automated count 2.61 10^3/uL 0.60 - 3.40 [facility] Monocytes [#/volume] in Blood by Automated count 1.09 10^3/uL 0.00 - 0.90 H [facility] Eosinophils [#/volume] in Blood by Automated count 0.12 10^3/uL 0.00 - 0.70 [facility] Basophils [#/volume] in Blood by Automated count 0.06 10^3/uL 0.00 - 0.20 [facility] #IG 0.39 10^3/uL 0.00 - 0.10 H [facility] H ospital #NRBC 0.00 10^3/uL 0.00 - 0.00 [facility] ospital MANUAL DIFF SEE BELOW [facility] ital Segmented neutrophils/100 leukocytes in Blood by Manual count 73 % 37 - 80 [facility] Hospital BAND 0 % 0 - 5 [facility] al %LYMPH 20 % 25 - 40 L [facility] Hospit al %MONO 7 % 3 - 8 [facility] al %EOS 0 % 0 - 7 [facility] al 0 RBC MORPH NOT INDICATED [facility] Ho spital ID Date Data Source [id number] 01/06/2021 11:58:00 AM EDT [facility] Name Value Range Interpretation Code Description Data Dolores rce(s) Supporting Document(s) BASIC METABOLIC PANEL [facility] BASIC METABOLIC PANEL Sodium [Moles/volume] in Serum or Plasma 137 mEq/L 134 - 153 [facility] Potassium [Moles/volume] in Serum or Plasma 4.1 mEq/L 3.6 - 5.0 [facility] Chloride [Moles/volume] in Serum or Plasma 100 mEq/L 98 - 107 [facility] Carbon dioxide, total [Moles/volume] in Serum or Plasma 20 MEQ/L 22 - 30 L [facility] Glucose [Mass/volume] in Serum or Plasma 95 MG/DL 70 - 99 [facility] BUN 6 MG/DL 7 - 21 L [facility] al Creatinine [Mass/volume] in Serum or Plasma 0.6 MG/DL 0.7 - 1.5 L [facility] BUN/CREAT 10 8 - 27 [facility] Calcium [Mass/volume] in Serum or Plasma 9.5 MG/DL 8.4 - 10.2 [facility] Anion gap 3 in Serum or Plasma 17.0 mmol/L 8.0 - 16.0 H [facility] AGE 25 yrs [facility] al AFR AMER GFR >60 mL/min [facility] Ho spital NON-AA GFR >60 mL/min [facility] ital Male GFR Inter prentation 20-49 yrs >60 mL/min Normal 50-59 yrs >56 mL/min Normal 60-69 yrs >49 mL/min Normal 70-79yrs >42 mL/min Normal 80 and above >35 mL/min Normal Female GFR Interpretation 20-39 yrs >60 mL/min Normal 40-49 yrs >58 mL/min Normal 50-59 yrs >51 mL/min Normal 60-69 yrs >45 mL/min Normal 70-79 yrs >39 mL/min Normal 80 and above >32 mL/min Normal ID Date Data Source [id number] 01/06/2021 11:40:00 AM EDT [facility] Name Value Range Interpretation Code Description Data Dolores rce(s) Supporting Document(s) CBC W/AUTOMATED DIFF [facility] COMPLETE BLOOD COUNT Leukocytes [#/volume] in Blood by Automated count 13.8 10^3/uL 4.2 - 11.0 H [facility] Erythrocytes [#/volume] in Blood by Automated count 3.72 10^6/uL 4. 20 - 5.40 L [facility] Hemoglobin [Mass/volume] in Blood 10.5 g/dL 12.0 - 16.0 L [facility] Hematocrit [Volume Fraction] of Blood by Automated count 31.6 % 3 7.0 - 47.0 L [facility] Erythrocyte mean corpuscular volume [Entitic volume] by Auto mated count 84.9 fL 81.0 - 101 [facility] Erythrocyte mean corpuscular hemoglobin [Entitic mass] by Automated count 28.2 pg 27.0 - 34.0 [facility] Erythrocyte mean corpuscular hemoglobin concentration [Mass/volume] by Automated count 33.2 g/dL 31.0 - 36.0 [facility] Erythrocyte distribution width [Ratio] by Automated count 14.1 % 11.5 - 14.5 [facility] Platelets [#/volume] in Blood by Automated count 254 10^3/uL 150 - 45 0 [facility] Platelet mean volume [Entitic volume] in Blood by Automated count 10.8 fL 7.4 - 10.4 H [facility] Neutrophils/100 leukocytes in Blood by Automated count 75.2 % 37. 0 - 80.0 [facility] Lymphocytes/100 leukocytes in Blood by Manual count 14.0 % 25.0 - 40.0 L [facility] Monocytes/100 leukocytes in Blood by Automated count 7.5 % 3.0 - 8.0 [facility] Eosinophils/100 leukocytes in Blood by Automated count 0.7 % 0.0 - 7.0 [facility] Basophils/100 leukocytes in Blood by Automated count 0.6 % 0.0 - 2.5 [facility] %IG 2.0 % 0.0 - 0.0 H [facility] Hospit al %NRBC 0.0 % 0.0 - 0.0 [facility] Neutrophils [#/volume] in Blood by Automated count 10.39 10^3/uL 2. 00 - 6.90 H [facility] Lymphocytes [#/volume] in Blood by Automated count 1.93 10^3/uL 0.60 - 3.40 [facility] Monocytes [#/volume] in Blood by Automated count 1.03 10^3/uL 0.00 - 0.90 H [facility] Eosinophils [#/volume] in Blood by Automated count 0.09 10^3/uL 0.00 - 0.70 [facility] Basophils [#/volume] in Blood by Automated count 0.08 10^3/uL 0.00 - 0.20 [facility] #IG 0.28 10^3/uL 0.00 - 0.10 H [facility] ospital #NRBC 0.00 10^3/uL 0.00 - 0.00 [facility] ospital MANUAL DIFF NOT INDICATED [facility] RBC MORPH NOT INDICATED [facility] spital ID Date Data Source [id number] 01/06/2021 11:40:00 AM EDT [facility] Name Value Range Interpretation Code Description Data Dolores rce(s) Supporting Document(s) Prothrombin time (PT) 12.7 SECONDS 11.0 - 15.5 [facility] INR in Platelet poor plasma by Coagulation assay 0.94 0.93 - 1. 23 [facility] aPTT in Blood by Coagulation assay 27.9 SECONDS 24.8 - 36.7 [facility] \\BLDo\\INR INTERPRETATION\\BLDx\\ Therapeutic range for Coumadin and related oral anticoagulants. - International Normalized Ratio (INR): 2.0 - 3.0 for Venous Thrombosis, Pulmonary Embolus, Tissue heart valves, Acute ND Atrial Fibrillation, Valvular heart disease and recurrent Systemic Embolism. - International Normalized Ratio (INR): 2.5 - 3.5 for Mechanical Prosthetic valve. ID Date Data Source [id number] 01/10/2021 07:42:00 AM EDT [facility] Name Value Range Interpretation Code Description Data Dolores rce(s) Supporting Document(s) CULTURE URINE [facility] spital _CULTURE URINE_$$[id number]$$[id number]$$641035$$172554$$934719$$114287$$014809$$339413$$507720$$ 305800$$805361$$714849$$127761$$578175$$478363$$924578$$543627$$589258$$006080$$ 585145$$408026$$626753$$687678$$475533$$036343$$555567$$[id number] -- Continued on next page --Patient: CYN GARRISON M Order: [id number] Page 2Culture: CULTURE URINE Status: Final ==== -- Continued on next page --Patient: CYN GARRISON M Order: [id number] Page 2Culture: CULTURE URINE Status: Prelim =====$$[id number] DATE/TIME: 01/10/2021 07:06Culture: CULTURE URINE Status: FinalUrine Culture,Comprehensive: P1No growth in 36 - 48 hours. Previous result entered on 01/08/2021 05:36 ET Specimen has been received and testing has been initiated.P1 Test performed by: [facility] Lisa DE OLIVEIRA #: [id number] [address] [place] [address] [id number] [facility] [id number] Director : Jose Martin Aguilar MD NPI #:Internal Medicine Nurse : 01/08/21.0657.XMT.SENT REF 01/10/21.0742.XMT.SENT REF 01/14/21.0725.XMT.SENT REF ID Date Data Source [id number] 01/06/2021 11:08:00 AM EDT [facility] Name Value Range Interpretation Code Description Data Dolores rce(s) Supporting Document(s) URINALYSIS [facility] Hospi jae URINALYSIS SOURCE R [facility] Hospit al COLOR yellow NORMAL: Yellow [facility] H ospital CLARITY clear NORMAL: Clear [facility] Ho spital Specific gravity of Urine by Test strip 1.010 1.001 - 1.030 [facility] pH 7 5 - 9 [facility] Glucose [Mass/volume] in Urine by Test strip NORM NORMAL: Negat [facility] Bilirubin.total [Presence] in Urine by Test strip NEG NORMAL: Negative [facility] Ketones [Presence] in Urine by Test strip NEG NORMAL: Negative [facility] Protein [Mass/volume] in Urine by Test strip NEG NORMAL: Negat [facility] Nitrite [Presence] in Urine by Test strip NEG NORMAL: Negative [facility] BLOOD 10 NORMAL: Negative [facility] Leukocyte esterase [Presence] in Urine by Test strip 500 JAVAN L: Negative [facility] Urobilinogen [Mass/volume] in Urine by Test strip NOR less kavon n 1.0 mg/dL [facility] MICROSCOPIC See Below [facility] ital WBC 5 - 7 NORMAL: NONE SEEN A [facility] EPITHELIAL MODERATE NORMAL: NONE SEEN A [facility] Bacteria [Presence] in Urine sediment by Light microscopy 1+ SMALL NORMAL: NONE SEEN [facility] ID Date Data Source [id number] 01/02/2021 11:00:00 PM EDT [facility] ([facility]) Name Value Range Interpretation Code Description Data Dolores rce(s) Supporting Document(s) Culture Urine [facility] {SOURCE: Clean Catch~NURSE COLLECTED? Y ID Date Data Source [id number] 01/02/2021 11:00:00 PM EDT [facility] ([facility]) Name Value Range Interpretation Code Description Data Dolores rce(s) Supporting Document(s) Urinalysis Laboratory test result [facility] ([facility]) {SOURCE: Clean Catch~NURSE COLLECTED? Y Source Laboratory test result [facility] ([facility]) {SOURCE: Clean Catch~NURSE COLLECTED? Y Color Laboratory test result [facility] ([facility]) {SOURCE: Clean Catch~NURSE COLLECTED? Y Clarity Laboratory test result [facility] ([facility]) {SOURCE: Clean Catch~NURSE COLLECTED? Y Spec [place] 1.015 1.001-1.030 [facility] ([facility]) {SOURCE: Clean Catch~NURSE COLLECTED? Y Glucose Laboratory test result [facility] ([facility]) {SOURCE: Clean Catch~NURSE COLLECTED? Y pH 6.5 5-9 [facility] ([facility]) {SOURCE: Clean Catch~NURSE COLLECTED? Y Bilirubin Laboratory test result [facility] ([facility]) {SOURCE: Clean Catch~NURSE COLLECTED? Y Ketone Laboratory test result [facility] ([facility]) {SOURCE: Clean Catch~NURSE COLLECTED? Y Protein Laboratory test result [facility] ([facility]) {SOURCE: Clean Catch~NURSE COLLECTED? Y Nitrite Laboratory test result [facility] ([facility]) {SOURCE: Clean Catch~NURSE COLLECTED? Y Blood Laboratory test result [facility] ([facility]) {SOURCE: Clean Catch~NURSE COLLECTED? Y Leuk Est 500 Abnormal (applies to non-numeric res ults) [facility] ([facility]) {SOURCE: Clean Catch~NURSE COLLECTED? Y Urobilinogen Laboratory test result [facility] ([facility]) {SOURCE: Clean Catch~NURSE COLLECTED? Y Microscopic Laboratory test result M [facility] ([facility]) {SOURCE: Clean Catch~NURSE COLLECTED? Y WBC Laboratory test result Abnormal (applies to non -numeric results) [facility] ([facility]) {SOURCE: Clean Catch~NURSE COLLECTED? Y RBC Laboratory test result [facility] ([facility]) {SOURCE: Clean Catch~NURSE COLLECTED? Y Epithelial Laboratory test result Abnormal (applies to non -numeric results) [facility] ([facility]) {SOURCE: Clean Catch~NURSE COLLECTED? Y Bacteria Laboratory test result [facility] ([facility]) {SOURCE: Clean Catch~NURSE COLLECTED? Y Mucous Laboratory test result Abnormal (applies to non -numeric results) [facility] ([facility]) {SOURCE: Clean Catch~NURSE COLLECTED? Y ID Date Data Source [id number] 01/06/2021 01:32:00 PM EDT [facility] Name Value Range Interpretation Code Description Data Dolores rce(s) Supporting Document(s) CULTURE URINE [facility] Ho spital _CULTURE URINE_$$[id number]$$[id number]$$[id number]$$[id number]$$838823$$572028$$459388$$407712$$503783$$ 295933$$363084$$524726$$904806$$705522$$878579$$022117$$336939$$073303$$956723$$ 535825$$929587$$160858$$363488$$627639$$696528$$701852$$271675 -- Continued on next page --Patient: CYN GARRISON M Order: [id number] Page 2Culture: CULTURE URINE Status: Final ==== -- Continued on next page --Patient: CYN GARRISON M Order: [id number] Page 2Culture: CULTURE URINE Status: Prelim =====$$[id number] DATE/TIME: 01/06/2021 13:06Culture: CULTURE URINE Status: FinalIsolate 1 Acinetobacter baumannii Flag: A . . . . . . .925,000-50,000 colony forming units per mL Previous result entered on 01/05/2021 04:57 ET Gram negative rodsUrine Culture,Comprehensive: [id number] baumannii Flag: APatient: CYN Rodriguez Order: [id number] Page 3Culture: CULTURE URINE Status: Final ====ISOLATE 1 Acinetobacter baumannii Isolate 1Antibiotic ROSI IntUnits ug/mL ----Ampicillin/Sulbactam S S . . . . . .32-3Cefepime S S . . . . . .6644-9Cefotaxime I I . . . . . .108-1Ceftazidime S S . . . . . .133-9Ceftriaxone I I . . . . . .141- 2Ciprofloxacin S S . . . . . .185-9Gentamicin S S . . . . . .267-5Imipenem S S . . . . . .279-0Levofloxacin S S . . . . . .01910-7Iordgefbd S S . . . . . .6652- 2Piperacillin S S . . . . . .408-5Tetracycline S S . . . . . .496-0Tobramycin S S . . . . . .508-2Trimethoprim/Sulfa S S . . . . . .516-5P1 Test performed by: Jet DE OLIVEIRA #: [id number] [address] [place] [address] Avenue [phone] [facility] [id number] Director : Jose Martin Aguilar MD NPI #:Internal Medicine Nurse : 01/05/21.0655.XMT.SENT REF 01/06/21.1332.XMT.SENT REF ID Date Data Source [id number] 01/02/2021 11:34:00 PM EDT [facility] Name Value Range Interpretation Code Description Data Dolores rce(s) Supporting Document(s) [facility] COL[facility] yellow NORMAL: Yellow [facility] H ospital CLARITY clear NORMAL: Clear [facility] Ho spital Specific gravity of Urine by Test strip 1.015 1.001 - 1.030 [facility] pH 6.5 5 - 9 [facility] al Glucose [Mass/volume] in Urine by Test strip NORM NORMAL: Negat [facility] Bilirubin.total [Presence] in Urine by Test strip NEG NORMAL: Negative [facility] Ketones [Presence] in Urine by Test strip NEG NORMAL: Negative [facility] Protein [Mass/volume] in Urine by Test strip NEG NORMAL: Negat [facility] Nitrite [Presence] in Urine by Test strip NEG NORMAL: Negative [facility] BLOOD NEG NORMAL: Negative [facility] Leukocyte esterase [Presence] in Urine by Test strip 500 JAVAN L: Negative A [facility] Urobilinogen [Mass/volume] in Urine by Test strip NOR less kavon n 1.0 mg/dL [facility] MICROSCOPIC See Below [facility] ital WBC 10 - 15 NORMAL: NONE SEEN A [facility] Erythrocytes [#/volume] in Urine by Test strip 0 - 1 NORMAL: NON E SEEN [facility] EPITHELIAL MODERATE NORMAL: NONE SEEN A [facility] Bacteria [Presence] in Urine sediment by Light microscopy 1+ SMALL NORMAL: NONE SEEN [facility] Mucus [Presence] in Urine sediment by Light microscopy 2+ NOR MAL: NONE SEEN A [facility] ID Date Data Source [id number] 12/29/2020 05:40:00 PM EDT [facility] ([facility]) Name Value Range Interpretation Code Description Data Dolores rce(s) Supporting Document(s) Urinalysis Laboratory test result [facility] ([facility]) {SOURCE: Random Void~NURSE COLLECTED? N Source Laboratory test result [facility] ([facility]) {SOURCE: Random Void~NURSE COLLECTED? N Color Laboratory test result [facility] ([facility]) {SOURCE: Random Void~NURSE COLLECTED? N Spec [place] 1.015 1.001-1.030 [facility] ([facility]) {SOURCE: Random Void~NURSE COLLECTED? N Clarity Laboratory test result [facility] ([facility]) {SOURCE: Random Void~NURSE COLLECTED? N pH 8 5-9 [facility] ([facility]) {SOURCE: Random Void~NURSE COLLECTED? N Glucose Laboratory test result [facility] ([facility]) {SOURCE: Random Void~NURSE COLLECTED? N Bilirubin Laboratory test result [facility] ([facility]) {SOURCE: Random Void~NURSE COLLECTED? N Ketone Laboratory test result [facility] ([facility]) {SOURCE: Random Void~NURSE COLLECTED? N Protein Laboratory test result [facility] ([facility]) {SOURCE: Random Void~NURSE COLLECTED? N Nitrite Laboratory test result [facility] ([facility]) {SOURCE: Random Void~NURSE COLLECTED? N Blood Laboratory test result [facility] ([facility]) {SOURCE: Random Void~NURSE COLLECTED? N Urobilinogen Laboratory test result [facility] ([facility]) {SOURCE: Random Void~NURSE COLLECTED? N Leuk Est 500 Abnormal (applies to non-numeric res ults) [facility] ([facility]) {SOURCE: Random Void~NURSE COLLECTED? N Microscopic Laboratory test result M [facility] ([facility]) {SOURCE: Random Void~NURSE COLLECTED? N WBC Laboratory test result Abnormal (applies to non -numeric results) [facility] ([facility]) {SOURCE: Random Void~NURSE COLLECTED? N RBC Laboratory test result [facility] ([facility]) {SOURCE: Random Void~NURSE COLLECTED? N Epithelial Laboratory test result Abnormal (applies to non -numeric results) [facility] ([facility]) {SOURCE: Random Void~NURSE COLLECTED? N Amorph Sed Laboratory test result [facility] ([facility]) {SOURCE: Random Void~NURSE COLLECTED? N Bacteria Laboratory test result [facility] ([facility]) {SOURCE: Random Void~NURSE COLLECTED? N ID Date Data Source [id number] 12/29/2020 05:40:00 PM EDT [facility] ([facility]) Name Value Range Interpretation Code Description Data Dolores rce(s) Supporting Document(s) Culture Urine Laboratory test result [facility] ([facility]) {SOURCE: Random Void~NURSE COLLECTED? N ID Date Data Source [id number] 01/03/2021 11:15:00 AM EDT [facility] Name Value Range Interpretation Code Description Data Dolores rce(s) Supporting Document(s) CULTURE URINE [facility] _CULTURE URINE_$$[id number]$$[id number]$$[id number]$$485063$$954812$$930067$$368188$$292585$$581352$$ 690154$$159404$$713999$$113765$$967668$$532795$$905477$$593995$$885984$$618759$$ 650346$$629181$$899037$$785736$$554126$$582135$$639265$$[id number] -- Continued on next page --Patient: CYN GARRISON M Order: [id number] Page 2Culture: CULTURE URINE Status: Final ==== -- Continued on next page --Patient: CYN GARRISON M Order: [id number] Page 2Culture: CULTURE URINE Status: Prelim ===== -- Continued on next page --Patient: CYN Rodriguez Order: [id number] Page 2Culture: CULTURE URINE Status: Prelim =====$$[id number]$$[id number] DATE/TIME: 01/03/2021 11:06Culture: CULTURE URINE Status: FinalIsolate 1 Acinetobacter baumannii Flag: A . . . . . . .9Greater than 100,000 colony forming units per mL Previous result entered on 01/02/2021 13:41 ET Acinetobacter baumanniiSusceptibility results being verified. Final report to follow. Previous result entered on 01/02/2021 07:53 ET Gram negative rodsUrine Culture,Comprehensive: V5Mfaxwipexoovx baumannii Flag: APatient: CYN Rodriguez Order: [id number] Page 3Culture: CULTURE URINE Status: Final ====ISOLATE 1 Acinetobacter baumannii Isolate 1Antibiotic ROSI IntUnits ug/mL Ampicillin/Sulbactam S S . . . . . .32- 3Cefepime S S . . . . . .6644-9Cefotaxime I I . . . . . .108-1Ceftazidime S S . . . . . .133-9Ceftriaxone I I . . . . . .141-2Ciprofloxacin S S . . . . . .185-9Gentamicin S S . . . . . .267-5Imipenem S S . . . . . .279- 0Levofloxacin S S . . . . . .30814-4Bansewtbk S S . . . . . .6652-2Piperacillin S S . . . . . .408-5Tetracycline S S . . . . . .496-0Tobramycin S S . . . . . .508- 2Trimethoprim/Sulfa S S . . . . . .516-5P1 Test performed by: [employer] Bhakti connolly [facility] #: [id number] [address] [place] [address] [id number] [facility] [id number] Director : Jose Martin Aguilar MD NPI #:Internal Medicine Nurse : 01/02/21.0927.XMT.SENT REF 01/02/21.1419.XMT.SENT REF 01/03/21.0646.XMT.SENT REF 01/03/21.1115.XMT.SENT REF ID Date Data Source [id number] 12/29/2020 05:59:00 PM EDT [facility] Name Value Range Interpretation Code Description Data Dolores rce(s) Supporting Document(s) [facility] COLOR yellow NORMAL: Yellow [facility] CLARITY clear NORMAL: Clear [facility] Specific gravity of Urine by Test strip 1.015 1.001 - 1.030 [facility] pH 8 5 - 9 [facility] Glucose [Mass/volume] in Urine by Test strip NORM NORMAL: Negat [facility] Bilirubin.total [Presence] in Urine by Test strip NEG NORMAL: Negative [facility] Ketones [Presence] in Urine by Test strip NEG NORMAL: Negative [facility] Protein [Mass/volume] in Urine by Test strip NEG NORMAL: Negat nancy [facility] Nitrite [Presence] in Urine by Test strip NEG NORMAL: Negative [facility] BLOOD NEG NORMAL: Negative [facility] Leukocyte esterase [Presence] in Urine by Test strip 500 JAVAN L: Negative A [facility] Urobilinogen [Mass/volume] in Urine by Test strip NOR less kavon n 1.0 mg/dL [facility] MICROSCOPIC See Below [facility] ital WBC 5 - 7 NORMAL: NONE SEEN A [facility] Erythrocytes [#/volume] in Urine by Test strip 0 - 1 NORMAL: NON E SEEN [facility] EPITHELIAL MODERATE NORMAL: NONE SEEN A [facility] Bacteria [Presence] in Urine sediment by Light microscopy Tr medina NORMAL: NONE SEEN [facility] Amorphous sediment [Presence] in Urine sediment by Light rosi roscopy 2+ NORMAL: NONE SEEN [facility] ID Date Data Source [id number] 12/29/2020 02:47:00 PM EDT [facility] ([facility]) Name Value Range Interpretation Code Description Data Dolores rce(s) Supporting Document(s) Z#Other Observations Laboratory test result [facility] ([facility]) ID Date Data Source [id number] 12/29/2020 02:46:00 PM EDT [facility] Name Value Range Interpretation Code Description Data Dolores rce(s) Supporting Document(s) Source: Laboratory test result [facility] ([facility]) {SOURCE: Random Void Yolette species Laboratory test result [facility] ([facility]) {SOURCE: Random Void Gardnerella vaginalis Laboratory test result [facility] ([facility]) {SOURCE: Random Void Trichomonas vaginalis Laboratory test result [facility] ([facility]) {SOURCE: Random Void ID Date Data Source [id number] 12/31/2020 09:30:00 PM EDT [facility] Name Value Range Interpretation Code Description Data Dolores rce(s) Supporting Document(s) SOURCE: Random Void [facility] ital Yolette sp rRNA [Presence] in Vaginal fluid by DNA probe Negative N egative [facility] Gardnerella vaginalis rRNA [Presence] in Genital specimen by DNA probe Negative Negative [facility] Trichomonas vaginalis rRNA [Presence] in Genital specimen by DNA probe Negative Negative [facility] ID Date Data Source [id number] 12/29/2020 02:25:00 PM EDT [facility] [address] [place] [address] PHONE: [phone] FAX: [phone] Name .................. : HEROElle GILLISBLADIMIR M Acct Number.................. : [id number] ROOM. ................. : MR Number ................... : [id number] Stay type ............. : O/P Discharge Date......... ... : 12/28/20 Admit Date ......... : 12/28/20 Admit Phys .................... : NANETTE GA Date of ....... : 1995 Family Phys ................... : NON STAFF Phone .................. : [phone] Age ................................ : 25 Film# .................. .:[id number] Sex ................................. : F Unsigned transcriptions are preliminary reports and do not represent a medical or legal document OB BIOPHYSICAL PROFILE [id number] COMPLETE:12/28/20 15:29 KNB [id number] Reason for Exam: DECREASED MOVEMENT OB ULTRASOUND WITH BIOPHYSICAL PROFILE SCORE: INDICATION: Decreased movement. FINDINGS: There is a single live intrauterine with a heart rate of 124 beats per minute. Estimated gestational age is 38 weeks 1 day with estimated delivery date of January 10, 2021. The fetus is in the vertex position. There is an anterior placenta without evidence of previa. The cervix measures 3.7 cm in length. The biophysical profile score is 8/8. IMPRESSION: Single live intrauterine as above. Biophysical profile score is 8/8. Electronically Reviewed and Signed By Arsalan Abdi M.D. , 12/29/20 14:25, CATyrese Transcribe Initials: DZ , Transcribe Date: 12/29/20 05:57, Dictation Date: Copy for: [address] [place] [address] Page 1 of 1 Name Value Range Interpretation Code Description Data Dolroes rce(s) Supporting Document(s) ID Date Data Source [id number] 12/28/2020 02:55:00 PM EDT [facility] Name Value Range Interpretation Code Description Data Dolores rce(s) Supporting Document(s) Hepatitis B virus surface Ag [Presence] in Serum or Pl asma by Immunoassay Laboratory test result [facility]) {SOURCE: Random Void~NURSE COLLECTED? N Is patient fasting? N {SPECIMEN TYPE: CLEAN CATCH Rubella virus IgG Ab [Units/volume] in Serum 175.900 IU/ml [facility] ([facility]) {SOURCE: Random Void~NURSE COLLECTED? N Is patient fasting? N {SPECIMEN TYPE: CLEAN CATCH Calcidiol [Mass/volume] in Serum or Plasma 23 ng/mL [facility] ([facility]) {SOURCE: Random Void~NURSE COLLECTED? N Is patient fasting? N {SPECIMEN TYPE: CLEAN CATCH Treponema pallidum Ab [Presence] in Serum Laboratory test result [facility] ([facility]) {SOURCE: Random Void~NURSE COLLECTED? N Is patient fasting? N {SPECIMEN TYPE: CLEAN CATCH Thyroxine (T4) free [Mass/volume] in Serum or Plasma 0.91 ng/dL 0.93-1.70 Below low normal [facility] ([facility]) {SOURCE: Random Void~NURSE COLLECTED? N Is patient fasting? N {SPECIMEN TYPE: CLEAN CATCH Triiodothyronine (T3) Free [Mass/volume] in Serum or Plasma 2.4 pg/ mL 2.0-4.4 [facility] ([facility]) {SOURCE: Random Void~NURSE COLLECTED? N Is patient fasting? N {SPECIMEN TYPE: CLEAN CATCH Thyrotropin [Units/volume] in Serum or Plasma 1.27 uIU/mL 0.47-5.01 [facility] ([facility]) {SOURCE: Random Void~NURSE COLLECTED? N Is patient fasting? N {SPECIMEN TYPE: CLEAN CATCH Thyroperoxidase Ab [Units/volume] in Serum or Plasma Laborat ory test result 0-34 [facility] ([facility] {SOURCE: Random Void~NURSE COLLECTED? N Is patient fasting? N {SPECIMEN TYPE: CLEAN CATCH Thyroxine (T4) [Mass/volume] in Serum or Plasma 10.1 ug/dL 4.5-12.5 [facility] ([facility]) {SOURCE: Random Void~NURSE COLLECTED? N Is patient fasting? N {SPECIMEN TYPE: CLEAN CATCH ID Date Data Source [id number] 12/28/2020 02:55:00 PM EDT [facility] ([facility]) Name Value Range Interpretation Code Description Data Dolores rce(s) Supporting Document(s) [employer] Laboratory test result [facility] ([facility]) {SOURCE: Random Void~NURSE COLLECTED? N Is patient fasting? N {SPECIMEN TYPE: CLEAN CATCH RH Type Laboratory test result [facility] ([facility]) {SOURCE: Random Void~NURSE COLLECTED? N Is patient fasting? N {SPECIMEN TYPE: CLEAN CATCH AB Screen Laboratory test result [facility] ([facility]) {SOURCE: Random Void~NURSE COLLECTED? N Is patient fasting? N {SPECIMEN TYPE: CLEAN CATCH ID Date Data Source [id number] 12/28/2020 02:55:00 PM EDT [facility] Name Value Range Interpretation Code Description Data Dolores rce(s) Supporting Document(s) Urinalysis Laboratory test result [facility] ([facility]) {SOURCE: Random Void~NURSE COLLECTED? N Is patient fasting? N {SPECIMEN TYPE: CLEAN CATCH Color Laboratory test result [facility] ([facility]) {SOURCE: Random Void~NURSE COLLECTED? N Is patient fasting? N {SPECIMEN TYPE: CLEAN CATCH Source Laboratory test result [facility] ([facility]) {SOURCE: Random Void~NURSE COLLECTED? N Is patient fasting? N {SPECIMEN TYPE: CLEAN CATCH Clarity Laboratory test result [facility] ([facility]) {SOURCE: Random Void~NURSE COLLECTED? N Is patient fasting? N {SPECIMEN TYPE: CLEAN CATCH Spec [place] 1.015 1.001-1.030 [facility] ([facility]) {SOURCE: Random Void~NURSE COLLECTED? N Is patient fasting? N {SPECIMEN TYPE: CLEAN CATCH pH 8 5-9 [facility] ([facility]) {SOURCE: Random Void~NURSE COLLECTED? N Is patient fasting? N {SPECIMEN TYPE: CLEAN CATCH Glucose Laboratory test result [facility] ([facility]) {SOURCE: Random Void~NURSE COLLECTED? N Is patient fasting? N {SPECIMEN TYPE: CLEAN CATCH Bilirubin Laboratory test result [facility] ([facility]) {SOURCE: Random Void~NURSE COLLECTED? N Is patient fasting? N {SPECIMEN TYPE: CLEAN CATCH Ketone Laboratory test result [facility] ([facility]) {SOURCE: Random Void~NURSE COLLECTED? N Is patient fasting? N {SPECIMEN TYPE: CLEAN CATCH Protein Laboratory test result [facility] ([facility]) {SOURCE: Random Void~NURSE COLLECTED? N Is patient fasting? N {SPECIMEN TYPE: CLEAN CATCH Nitrite Laboratory test result [facility] {SOURCE: Random Void~NURSE COLLECTED? N Is patient fasting? N {SPECIMEN TYPE: CLEAN CATCH Blood Laboratory test result [facility] ([facility]) {SOURCE: Random Void~NURSE COLLECTED? N Is patient fasting? N {SPECIMEN TYPE: CLEAN CATCH Leuk Est 100 Abnormal (applies to non-numeric res ults) [facility] ([facility]) {SOURCE: Random Void~NURSE COLLECTED? N Is patient fasting? N {SPECIMEN TYPE: CLEAN CATCH Urobilinogen Laboratory test result [facility] ([facility]) {SOURCE: Random Void~NURSE COLLECTED? N Is patient fasting? N {SPECIMEN TYPE: CLEAN CATCH Microscopic Laboratory test result [facility] ([facility]) {SOURCE: Random Void~NURSE COLLECTED? N Is patient fasting? N {SPECIMEN TYPE: CLEAN CATCH WBC Laboratory test result [facility] ([facility]) {SOURCE: Random Void~NURSE COLLECTED? N Is patient fasting? N {SPECIMEN TYPE: CLEAN CATCH Epithelial Laboratory test result [facility] ([facility]) {SOURCE: Random Void~NURSE COLLECTED? N Is patient fasting? N {SPECIMEN TYPE: CLEAN CATCH ID Date Data Source [id number] 12/28/2020 02:55:00 PM EDT [facility] ([facility]) Name Value Range Interpretation Code Description Data Dolores rce(s) Supporting Document(s) Culture Urine Laboratory test result [facility] ([facility]) {SOURCE: Random Void~NURSE COLLECTED? N Is patient fasting? N {SPECIMEN TYPE: CLEAN CATCH ID Date Data Source [id number] 12/28/2020 02:55:00 PM EDT [facility] ([facility]) Name Value Range Interpretation Code Description Data Dolores rce(s) Supporting Document(s) HIV Screen [employer] Laboratory test result [facility] ([facility]) {SOURCE: Random Void~NURSE COLLECTED? N Is patient fasting? N {SPECIMEN TYPE: CLEAN CATCH ID Date Data Source [id number] 12/28/2020 02:55:00 PM EDT [facility] ([facility]) Name Value Range Interpretation Code Description Data Dolores rce(s) Supporting Document(s) Sodium 136 meq/L 134-153 [facility] ([facility]) {SOURCE: Random Void~NURSE COLLECTED? N Is patient fasting? N {SPECIMEN TYPE: CLEAN CATCH Comprehensive [employer] Laboratory test result [facility] ([facility]) {SOURCE: Random Void~NURSE COLLECTED? N Is patient fasting? N {SPECIMEN TYPE: CLEAN CATCH Potassium 3.6 meq/L 3.6-5.0 [facility] ([facility]) {SOURCE: Random Void~NURSE COLLECTED? N Is patient fasting? N {SPECIMEN TYPE: CLEAN CATCH Chloride 105 meq/L 98-107 [facility] ([facility]) {SOURCE: Random Void~NURSE COLLECTED? N Is patient fasting? N {SPECIMEN TYPE: CLEAN CATCH Co2 21 meq/L 22-30 Below low normal [facility] ([facility]) {SOURCE: Random Void~NURSE COLLECTED? N Is patient fasting? N {SPECIMEN TYPE: CLEAN CATCH Glucose 108 mg/dL 70-99 Above high normal [facility] ([facility]) {SOURCE: Random Void~NURSE COLLECTED? N Is patient fasting? N {SPECIMEN TYPE: CLEAN CATCH Creatinine 0.6 mg/dL 0.7-1.5 Below low normal [facility] ( [facility]) {SOURCE: Random Void~NURSE COLLECTED? N Is patient fasting? N {SPECIMEN TYPE: CLEAN CATCH BUN 7 mg/dL 7-21 [facility] ([facility]) {SOURCE: Random Void~NURSE COLLECTED? N Is patient fasting? N {SPECIMEN TYPE: CLEAN CATCH BUN/Creat 12 8-27 [facility] ([facility]) {SOURCE: Random Void~NURSE COLLECTED? N Is patient fasting? N {SPECIMEN TYPE: CLEAN CATCH Total Protein 5.9 g/dL 6.3-8.2 Below low normal [facility] ([facility]) {SOURCE: Random Void~NURSE COLLECTED? N Is patient fasting? N {SPECIMEN TYPE: CLEAN CATCH Albumin 3.4 g/dL 3.9-5.0 Below low normal [facility] ( [facility]) {SOURCE: Random Void~NURSE COLLECTED? N Is patient fasting? N {SPECIMEN TYPE: CLEAN CATCH Globulin 2.5 GM/DL 2.4-3.2 [facility] ([facility]) {SOURCE: Random Void~NURSE COLLECTED? N Is patient fasting? N {SPECIMEN TYPE: CLEAN CATCH A/G Ratio 1.4 0.8-2.0 [facility] ([facility]) {SOURCE: Random Void~NURSE COLLECTED? N Is patient fasting? N {SPECIMEN TYPE: CLEAN CATCH Total Bili Laboratory test result 0.2-1.3 [facility] ([facility]) {SOURCE: Random Void~NURSE COLLECTED? N Is patient fasting? N {SPECIMEN TYPE: CLEAN CATCH Calcium 8.6 mg/dL 8.4-10.2 [facility] ([facility]) {SOURCE: Random Void~NURSE COLLECTED? N Is patient fasting? N {SPECIMEN TYPE: CLEAN CATCH Alkaline Phos 235 U/L 38-126 Above high normal [facility] ([facility]) {SOURCE: Random Void~NURSE COLLECTED? N Is patient fasting? N {SPECIMEN TYPE: CLEAN CATCH Sgot/Ast 15 U/L 5-40 [facility] ([facility]) {SOURCE: Random Void~NURSE COLLECTED? N Is patient fasting? N {SPECIMEN TYPE: CLEAN CATCH Anion Gap 10.0 mmol/L 8.0-16.0 [facility] ([facility]) {SOURCE: Random Void~NURSE COLLECTED? N Is patient fasting? N {SPECIMEN TYPE: CLEAN CATCH SGPT/Alt 6 U/L 7-56 Below low normal [facility] ([facility]) {SOURCE: Random Void~NURSE COLLECTED? N Is patient fasting? N {SPECIMEN TYPE: CLEAN CATCH Non-Aa GFR Laboratory test result [facility] ([facility]) {SOURCE: Random Void~NURSE COLLECTED? N Is patient fasting? N {SPECIMEN TYPE: CLEAN CATCH Age 25 yrs [facility] ([facility]) {SOURCE: Random Void~NURSE COLLECTED? N Is patient fasting? N {SPECIMEN TYPE: CLEAN CATCH Afr Amer GFR Laboratory test result [facility] ([facility]) {SOURCE: Random Void~NURSE COLLECTED? N Is patient fasting? N {SPECIMEN TYPE: CLEAN CATCH ID Date Data Source [id number] 12/28/2020 02:55:00 PM EDT [facility] ([facility]) Name Value Range Interpretation Code Description Data Dolores rce(s) Supporting Document(s) Glucose [Mass/volume] in Serum or Plasma --1 hour post meal 109 mg/dL 70-99 Above high normal [facility] ([facility]) {SOURCE: Random Void~NURSE COLLECTED? N Is patient fasting? N {SPECIMEN TYPE: CLEAN CATCH ID Date Data Source [id number] 12/28/2020 02:55:00 PM EDT [facility] ([facility]) Name Value Range Interpretation Code Description Data Dolores rce(s) Supporting Document(s) CBC W/Automated Diff Laboratory test result [facility] ([facility]) {SOURCE: Random Void~NURSE COLLECTED? N Is patient fasting? N {SPECIMEN TYPE: CLEAN CATCH WBC 10.2 10^3/uL 4.2-11.0 [facility] ([facility]) {SOURCE: Random Void~NURSE COLLECTED? N Is patient fasting? N {SPECIMEN TYPE: CLEAN CATCH RBC 3.41 10^6/uL 4.20-5.40 Below low normal [facility] ([facility]) {SOURCE: Random Void~NURSE COLLECTED? N Is patient fasting? N {SPECIMEN TYPE: CLEAN CATCH Hemoglobin 9.9 g/dL 12.0-16.0 Below low normal [facility] ( [facility]) {SOURCE: Random Void~NURSE COLLECTED? N Is patient fasting? N {SPECIMEN TYPE: CLEAN CATCH Hematocrit 29.8 % 37.0-47.0 Below low normal [facility] ( [facility]) {SOURCE: Random Void~NURSE COLLECTED? N Is patient fasting? N {SPECIMEN TYPE: CLEAN CATCH MCV 87.4 fL 81.0-101 [facility] ([facility]) {SOURCE: Random Void~NURSE COLLECTED? N Is patient fasting? N {SPECIMEN TYPE: CLEAN CATCH MCH 29.0 pg 27.0-34.0 [facility] ([facility]) {SOURCE: Random Void~NURSE COLLECTED? N Is patient fasting? N {SPECIMEN TYPE: CLEAN CATCH RDW 14.0 % 11.5-14.5 [facility] ([facility]) {SOURCE: Random Void~NURSE COLLECTED? N Is patient fasting? N {SPECIMEN TYPE: CLEAN CATCH MCHC 33.2 g/dL 31.0-36.0 [facility] ([facility]) {SOURCE: Random Void~NURSE COLLECTED? N Is patient fasting? N {SPECIMEN TYPE: CLEAN CATCH Platelets 236 10^3/uL 150-450 [facility] ([facility]) {SOURCE: Random Void~NURSE COLLECTED? N Is patient fasting? N {SPECIMEN TYPE: CLEAN CATCH MPV 11.1 fL 7.4-10.4 Above high normal [facility] ([facility]) {SOURCE: Random Void~NURSE COLLECTED? N Is patient fasting? N {SPECIMEN TYPE: CLEAN CATCH Neut 68.2 % 37.0-80.0 [facility] ([facility]) {SOURCE: Random Void~NURSE COLLECTED? N Is patient fasting? N {SPECIMEN TYPE: CLEAN CATCH Zavala 8.4 % 3.0-8.0 Above high normal [facility] ([facility]) {SOURCE: Random Void~NURSE COLLECTED? N Is patient fasting? N {SPECIMEN TYPE: CLEAN CATCH Lymph 19.1 % 25.0-40.0 Below low normal [facility] ( [facility]) {SOURCE: Random Void~NURSE COLLECTED? N Is patient fasting? N {SPECIMEN TYPE: CLEAN CATCH Baso 0.7 % 0.0-2.5 [facility] ([facility]) {SOURCE: Random Void~NURSE COLLECTED? N Is patient fasting? N {SPECIMEN TYPE: CLEAN CATCH Eos 0.9 % 0.0-7.0 [facility] ([facility]) {SOURCE: Random Void~NURSE COLLECTED? N Is patient fasting? N {SPECIMEN TYPE: CLEAN CATCH %Ig 2.7 % 0.0-0.0 Above high normal [facility] ([facility]) {SOURCE: Random Void~NURSE COLLECTED? N Is patient fasting? N {SPECIMEN TYPE: CLEAN CATCH %NRBC 0.0 % 0.0-0.0 [facility] ([facility]) {SOURCE: Random Void~NURSE COLLECTED? N Is patient fasting? N {SPECIMEN TYPE: CLEAN CATCH #Neut 6.98 10^3/uL 2.00-6.90 Above high normal [facility] ([facility]) {SOURCE: Random Void~NURSE COLLECTED? N Is patient fasting? N {SPECIMEN TYPE: CLEAN CATCH #Lymph 1.95 10^3/uL 0.60-3.40 [facility] ([facility]) {SOURCE: Random Void~NURSE COLLECTED? N Is patient fasting? N {SPECIMEN TYPE: CLEAN CATCH #Zavala 0.86 10^3/uL 0.00-0.90 [facility] ([facility]) {SOURCE: Random Void~NURSE COLLECTED? N Is patient fasting? N {SPECIMEN TYPE: CLEAN CATCH #Baso 0.07 10^3/uL 0.00-0.20 [facility] ([facility]) {SOURCE: Random Void~NURSE COLLECTED? N Is patient fasting? N {SPECIMEN TYPE: CLEAN CATCH #Eos 0.09 10^3/uL 0.00-0.70 [facility] ([facility]) {SOURCE: Random Void~NURSE COLLECTED? N Is patient fasting? N {SPECIMEN TYPE: CLEAN CATCH #Ig 0.28 10^3/uL 0.00-0.10 Above high normal [facility] ([facility]) {SOURCE: Random Void~NURSE COLLECTED? N Is patient fasting? N {SPECIMEN TYPE: CLEAN CATCH Manual Diff Laboratory test result [facility] ([facility]) {SOURCE: Random Void~NURSE COLLECTED? N Is patient fasting? N {SPECIMEN TYPE: CLEAN CATCH #NRBC 0.00 10^3/uL 0.00-0.00 [facility] ([facility]) {SOURCE: Random Void~NURSE COLLECTED? N Is patient fasting? N {SPECIMEN TYPE: CLEAN CATCH RBC Morph [facility] {SOURCE: Random Void~NURSE COLLECTED? N Is patient fasting? N {SPECIMEN TYPE: CLEAN CATCH ID Date Data Source [id number] 01/02/2021 10:41:00 AM EDT [facility] Name Value Range Interpretation Code Description Data Dolores rce(s) Supporting Document(s) CULTURE URINE [facility] _CULTURE URINE_$$[id number]$$535011$$316979$$947256$$588993$$574286$$868608$$539218$$727331$$ 717509$$805139$$789984$$928370$$578290$$452723$$650786$$722894$$731631$$814737$$ 261461$$773137$$675958$$088634$$667040$$102589$$900846$$231740 -- Continued on next page --Patient: CYN Rodriguez Order: Page 2Culture: CULTURE URINE Status: Final ==== -- Continued on next page --Patient: CYN Rodriguez Order: [id number] Page 2Culture: CULTURE URINE Status: Prelim =====$$[id number]$$[id number] DATE/TIME: 01/02/2021 10:07Culture: CULTURE URINE Status: FinalUrine Culture,Comprehensive: [id number] urogenital flora5,000 Colonies/mL Previous result entered on 12/31/2020 06:46 ET No growth after 18-24 hours.P1 Test performed by: [facility] #: [id number] [address] [id number] [facility] [address]Xursjuu Director : Jose Martin Aguilar MD NPI #:Internal Medicine Nurse : 01/01/21.0826.XMT.SENT REF 01/02/21.1041.XMT.SENT REF ID Date Data Source [id number] 12/30/2020 08:15:00 PM EDT [facility] Value Range Interpretation Code Description Data Dolores rce(s) Supporting Document(s) Thyroperoxidase Ab [Units/volume] in Serum or Plasma <9 IU/mL 0-34 [facility] ID Date Data Source [id number] 12/30/2020 08:15:00 PM EDT [facility] Value Range Interpretation Code Description Data Dolores rce(s) Supporting Document(s) Triiodothyronine (T3) Free [Mass/volume] in Serum or Plasma 2.4 pg/ mL 2.0-4.4 [facility] ID Date Data Source [id number] 12/30/2020 08:04:00 PM EDT [facility] Value Range Interpretation Code Description Data Dolores rce(s) Supporting Document(s) HIV 1+2 Ab+HIV1 p24 Ag [Presence] in Serum or Plasma b y Immunoassay Non Reactive Non Reactive [facility] ID Date Data Source [id number] 12/28/2020 03:49:00 PM EDT [facility] Value Range Interpretation Code Description Data Dolores rce(s) Supporting Document(s) CBC W/AUTOMATED DIFF [facility] COMPLETE BLOOD COUNT Leukocytes [#/volume] in Blood by Automated count 10.2 10^3/uL 4.2 - 11.0 [facility] Erythrocytes [#/volume] in Blood by Automated count 3.41 10^6/uL 4. 20 - 5.40 L [facility] Hemoglobin [Mass/volume] in Blood 9.9 g/dL 12.0 - 16.0 L [facility] Hematocrit [Volume Fraction] of Blood by Automated count 29.8 % 3 7.0 - 47.0 L [facility] Erythrocyte mean corpuscular volume [Entitic volume] by Auto mated count 87.4 fL 81.0 - 101 [facility] Erythrocyte mean corpuscular hemoglobin [Entitic mass] by Automated count 29.0 pg 27.0 - 34.0 [facility] Erythrocyte mean corpuscular hemoglobin concentration [Mass/volume] by Automated count 33.2 g/dL 31.0 - 36.0 [facility] Erythrocyte distribution width [Ratio] by Automated count 14.0 % 11.5 - 14.5 [facility] Platelets [#/volume] in Blood by Automated count 236 10^3/uL 150 - 45 0 [facility] Platelet mean volume [Entitic volume] in Blood by Automated count 11.1 fL 7.4 - 10.4 H [facility] Neutrophils/100 leukocytes in Blood by Automated count 68.2 % 37. 0 - 80.0 [facility] Lymphocytes/100 leukocytes in Blood by Manual count 19.1 % 25.0 - 40.0 L [facility] Monocytes/100 leukocytes in Blood by Automated count 8.4 % 3.0 - 8.0 H [facility] Eosinophils/100 leukocytes in Blood by Automated count 0.9 % 0.0 - 7.0 [facility] Basophils/100 leukocytes in Blood by Automated count 0.7 % 0.0 - 2.5 [facility] %IG 2.7 % 0.0 - 0.0 [facility] %NRBC 0.0 % 0.0 - 0.0 [facility] al Neutrophils [#/volume] in Blood by Automated count 6.98 10^3/uL 2.00 - 6.90 H [facility] Lymphocytes [#/volume] in Blood by Automated count 1.95 10^3/uL 0.60 - 3.40 [facility] Monocytes [#/volume] in Blood by Automated count 0.86 10^3/uL 0.00 - 0.90 [facility] Eosinophils [#/volume] in Blood by Automated count 0.09 10^3/uL 0.00 - 0.70 [facility] Basophils [#/volume] in Blood by Automated count 0.07 10^3/uL 0.00 - 0.20 [facility] #IG 0.28 10^3/uL 0.00 - 0.10 H [facility] #NRBC 0.00 10^3/uL 0.00 - 0.00 [facility] ospital MANUAL DIFF NOT INDICATED [facility] RBC MORPH NOT INDICATED [facility] ID Date Data Source [id number] 12/28/2020 03:43:00 PM EDT [facility] Name Value Range Interpretation Code Description Data Dolores rce(s) Supporting Document(s) Hepatitis B virus surface Ab [Units/volume] in Serum o r Plasma by Immunoassay NONREACTIVE NORMAL:NON REACTIVE [facility] l ID Date Data Source [id number] 12/28/2020 03:37:00 PM EDT [facility] Name Value Range Interpretation Code Description Data Dolores rce(s) Supporting Document(s) Treponema pallidum Ab [Presence] in Serum NON-REACTIVE NORMAL:NON MICAH CTIVE [facility] ID Date Data Source [id number] 12/28/2020 03:26:00 PM EDT [facility] Name Value Range Interpretation Code Description Data Dolores rce(s) Supporting Document(s) URINALYSIS [facility] Hos[facility] jae URINALYSIS SOURCE R [facility] Hospit al COLOR yellow NORMAL: Yellow [facility] CLARITY clear NORMAL: Clear [facility] sp[facility] Specific gravity of Urine by Test strip 1.015 1.001 - 1.030 [facility] pH 8 5 - 9 [facility] Glucose [Mass/volume] in Urine by Test strip NORM NORMAL: Negat nancy [facility] Bilirubin.total [Presence] in Urine by Test strip NEG NORMAL: Negative [facility] Ketones [Presence] in Urine by Test strip NEG NORMAL: Negative [facility] Protein [Mass/volume] in Urine by Test strip NEG NORMAL: Negat [facility] Nitrite [Presence] in Urine by Test strip NEG NORMAL: Negative [facility] BLOOD NEG NORMAL: Negative [facility] Leukocyte esterase [Presence] in Urine by Test strip 100 JAVAN L: Negative A [facility] Urobilinogen [Mass/volume] in Urine by Test strip NOR less kavon n 1.0 mg/dL [facility] MICROSCOPIC See Below [facility] ital WBC 0 - 1 NORMAL: NONE SEEN [facility] EPITHELIAL FEW NORMAL: NONE SEEN [facility] ID Date Data Source [id number] 12/29/2020 02:07:00 PM EDT [facility] Name Value Range Interpretation Code Description Data Dolores rce(s) Supporting Document(s) Calcidiol [Moles/volume] in Serum or Plasma 23 NG/ML [facility] VITAMIN-D(2 5HYDROXY) Deficiency: <=20 ng/ml Insufficiency: 21-29 ng/ml Preferred level: => 30 ng/ml ID Date Data Source [id number] 12/28/2020 05:40:00 PM T [facility] Name Value Range Interpretation Code Description Data Dolores rce(s) Supporting Document(s) Thyroxine (T4) [Mass/volume] in Serum or Plasma 10.1 UG/DL 4.5 - 12.5 [facility] ID Date Data Source [id number] 12/28/2020 05:40:00 PM EDT [facility] Name Value Range Interpretation Code Description Data Dolores rce(s) Supporting Document(s) Thyroxine (T4) free index in Serum or Plasma by calculation 0.91 NG/DL 0.93 - 1.70 L [facility] ID Date Data Source [id number] 12/28/2020 05:40:00 PM EDT [facility] Name Value Range Interpretation Code Description Data Dolores rce(s) Supporting Document(s) Rubella virus IgG Ab [Units/volume] in Serum 175.900 IU/ml [facility] REACTI VE \\BLDo\\Rubella Immunity Interpretation\\BLDx\\ Non-reactive: <10 IU/mL Reactive: greater than or equal to 10 IU/mL A reactive result is presumptive evidence of immunity to Rubella, except when acute infection is suspected. ID Date Data Source [id number] 12/28/2020 05:37:00 PM EDT [facility] Name Value Range Interpretation Code Description Data Dolores rce(s) Supporting Document(s) Thyrotropin [Units/volume] in Serum or Plasma by Detec tion limit <= 0.05 mIU/L 1.27 uIU/mL 0.47 - 5.01 [facility] ID Date Data Source [id number] 12/28/2020 04:00:00 PM EDT [facility] Name Value Range Interpretation Code Description Data Dolores rce(s) Supporting Document(s) COMPREHENSIVE METABOLIC PANEL [facility] COMPREHENSIVE METABOLIC PANEL Sodium [Moles/volume] in Serum or Plasma 136 mEq/L 134 - 153 [facility] Potassium [Moles/volume] in Serum or Plasma 3.6 mEq/L 3.6 - 5.0 [facility] Chloride [Moles/volume] in Serum or Plasma 105 mEq/L 98 - 107 [facility] Carbon dioxide, total [Moles/volume] in Serum or Plasma 21 MEQ/L 22 - 30 L [facility] Glucose [Mass/volume] in Serum or Plasma 108 MG/DL 70 - 99 H [facility] BUN 7 MG/DL 7 - 21 [facility] Creatinine [Mass/volume] in Serum or Plasma 0.6 MG/DL 0.7 - 1.5 L [facility] BUN/CREAT 12 8 - 27 [facility] Protein [Mass/volume] in Serum or Plasma 5.9 G/DL 6.3 - 8.2 L [facility] Albumin [Mass/volume] in Serum or Plasma 3.4 G/DL 3.9 - 5.0 L [facility] Globulin [Mass/volume] in Serum by calculation 2.5 GM/DL 2.4 - 3.2 [facility] A/G RATIO 1.4 0.8 - 2.0 [facility] Calcium [Mass/volume] in Serum or Plasma 8.6 MG/DL 8.4 - 10.2 [facility] Bilirubin.total [Mass/volume] in Serum or Plasma <0.7 MG/DL 0.2 - 1.3 [facility] Alkaline phosphatase [Enzymatic activity/volume] in Serum or Plasma 235 U/L 38 - 126 H [facility] Aspartate aminotransferase [Enzymatic activity/volume] in Serum or Plasma 15 U/L 5 - 40 [facility] Alanine aminotransferase [Enzymatic activity/volume] in Seru m or Plasma 6 U/L 7 - 56 L [facility] Anion gap 3 in Serum or Plasma 10.0 mmol/L 8.0 - 16.0 [facility] AGE 25 yrs [facility] al NON-AA GFR >60 mL/min [facility] ital AFR AMER GFR >60 mL/min [facility] Ho spital Male GFR In terprentation 20-49 yrs >60 mL/min Normal 50-59 yrs >56 mL/min Normal 60-69 yrs >49 mL/min Normal 70-79yrs >42 mL/min Normal 80 and above >35 mL/min Normal Female GFR Interpretation 20-39 yrs >60 mL/min Normal 40-49 yrs >58 mL/min Normal 50-59 yrs >51 mL/min Normal 60-69 yrs >45 mL/min Normal 70-79 yrs >39 mL/min Normal 80 and above >32 mL/min Normal ID Date Data Source [id number] 12/28/2020 04:00:00 PM EDT [facility] Name Value Range Interpretation Code Description Data Dolores rce(s) Supporting Document(s) Glucose [Mass/volume] in Serum or Plasma 109 MG/DL 70 - 99 H [facility] ID Date Data Source [id number] 12/28/2020 03:59:00 PM EDT [facility] Name Value Range Interpretation Code Description Data Dolores rce(s) Supporting Document(s) ABO group [Type] in Blood O [facility] Rh [Type] in Blood POSITIVE [facility] AB SCREEN NEGATIVE NORMAL: NEGATIVE [facility] { ABO/RH REENTER O POSITIVE{ AB SCREEN RE-ENTER NEGATIVE ID Date Data Source [id number] 12/22/2020 02:41:00 PM EDT [facility] ([facility]) Name Value Range Interpretation Code Description Data Dolores rce(s) Supporting Document(s) Culture GBS Vaginal Laboratory test result [facility] ([facility]) NKDA~SOURCE:ANAL/VAGINAL~.~Z36.9 ID Date Data Source [id number] 12/27/2020 08:08:00 PM EDT [facility] Name Value Range Interpretation Code Description Data Dolores rce(s) Supporting Document(s) CULTURE GBS VAGINAL [facility] _B-STREP GROUP B CULTURE_$$[id number]$$ [id number] DATE/TIME: 12/27/2020 08:08Culture: CULTURE GBS VAGINAL Status: FinalStrep Gp B Culture: [id number] Range: NegativeCenters for Disease Control and Prevention (CDC) and [place] Congressof Obstetricians and Gynecologists (ACOG) guidelines for prevention ofperinatal group B streptococcal (GBS) disease specify co- collection ofa vaginal and rectal swab specimen to maximize sensitivity of GBSdetection. Per the CDC and ACOG, swabbing both the lower vagina andrectum substantially increases the yield of detection compared withsampling the vagina alone.Penicillin G, ampicillin, or cefazolin are indicated for intrapartumprophylaxis of GBS colonization. Reflex susceptibilitytesting should be performed prior to use of clindamycin only on GBSisolates from penicillin-allergic women who are considered a high riskfor anaphylaxis. Treatment with vancomycin without additional testingis warranted if resistance to clindamycin is noted.P1 Test performed by: [facility] Lisa [place] #: [id number] [address] [phone] [facility] [address] -- Continued on next page --Patient: CYN Rodriguez Order: [id number] Page 2Culture: CULTURE GBS VAGINAL Status: Final ====Internal Communications Specialist : Jose Martin Aguilar MD NPI #:Internal Medicine Nurse : 12/27/20.XMT.SENT REF ID Date Data Source [id number] 12/05/2020 10:10:00 PM EDT [facility] ([facility]) Name Value Range Interpretation Code Description Data Dolores rce(s) Supporting Document(s) Culture Urine Laboratory test result [facility] ([facility]) {SOURCE: Random Void~NURSE COLLECTED? N ID Date Data Source [id number] 12/05/2020 10:10:00 PM EDT [facility] ([facility]) Name Value Range Interpretation Code Description Data Dolores rce(s) Supporting Document(s) Urinalysis Laboratory test result [facility] ([facility]) {SOURCE: Random Void~NURSE COLLECTED? N Source Laboratory test result [facility] ([facility]) {SOURCE: Random Void~NURSE COLLECTED? N Clarity Laboratory test result [facility] ([facility]) {SOURCE: Random Void~NURSE COLLECTED? N Color Laboratory test result [facility] ([facility]) {SOURCE: Random Void~NURSE COLLECTED? N pH 8 5-9 [facility] ([facility]) {SOURCE: Random Void~NURSE COLLECTED? N Spec [place] 1.015 1.001-1.030 [facility] ([facility]) {SOURCE: Random Void~NURSE COLLECTED? N Bilirubin Laboratory test result [facility] ([facility]) {SOURCE: Random Void~NURSE COLLECTED? N Glucose Laboratory test result [facility] ([facility]) {SOURCE: Random Void~NURSE COLLECTED? N Ketone Laboratory test result [facility] ([facility]) {SOURCE: Random Void~NURSE COLLECTED? N Nitrite Laboratory test result [facility] ([facility]) {SOURCE: Random Void~NURSE COLLECTED? N Protein Laboratory test result [facility] ([facility]) {SOURCE: Random Void~NURSE COLLECTED? N Leuk Est 100 Abnormal (applies to non-numeric res ults) [facility] ([facility]) {SOURCE: Random Void~NURSE COLLECTED? N Blood Laboratory test result [facility] ([facility]) {SOURCE: Random Void~NURSE COLLECTED? N Microscopic Laboratory test result M [facility] ([facility]) {SOURCE: Random Void~NURSE COLLECTED? N Urobilinogen Laboratory test result [facility] ([facility]) {SOURCE: Random Void~NURSE COLLECTED? N WBC Laboratory test result [facility] ([facility]) {SOURCE: Random Void~NURSE COLLECTED? N RBC Laboratory test result [facility] ([facility]) {SOURCE: Random Void~NURSE COLLECTED? N Epithelial Laboratory test result Abnormal (applies to non -numeric results) [facility] ([facility]) {SOURCE: Random Void~NURSE COLLECTED? N Bacteria Laboratory test result [facility] ([facility]) {SOURCE: Random Void~NURSE COLLECTED? N Amorph Sed Laboratory test result [facility] ([facility]) {SOURCE: Random Void~NURSE COLLECTED? N ID Date Data Source [id number] 12/08/2020 07:55:00 AM EDT [facility] Name Value Range Interpretation Code Description Data Dolores rce(s) Supporting Document(s) CULTURE URINE [facility] _CULTURE URINE_$$[id number]$$[id number]$$326861$$878511$$844862$$001556$$091993$$012162$$435135$$ 293839$$404603$$572855$$297728$$478809$$415590$$941892$$547211$$584004$$914424$$ 241999$$548823$$416850$$887590$$146575$$723761$$376734$$864939 -- Continued on next page --Patient: CYN GARRISON Order: [id number] Page 2Culture: CULTURE URINE Status: Final ====$$[id number]$$[id number] DATE/TIME: 12/08/2020 06:06Culture: CULTURE URINE Status: FinalUrine Culture,Comprehensive: F6Thjra urogenital flora25,000-50,000 colony forming units per mLP1 Test performed by: [facility] [place] LINA #: [id number] [address] [place] [address] Avenue [phone] [facility] [address]Jcgrona Director : Jose Martin Aguilar MD NPI #:Internal Medicine Nurse : 12/08/20.0755.XMT.SENT REF ID Date Data Source [id number] 12/05/2020 10:40:00 PM EDT [facility] Name Value Range Interpretation Code Description Data Dolores rce(s) Supporting Document(s) [facility] COLOR yellow NORMAL: Yellow [facility] CLARITY hazy NORMAL: Clear [facility] sp[facility] Specific gravity of Urine by Test strip 1.015 1.001 - 1.030 [facility] pH 8 5 - 9 [facility] Glucose [Mass/volume] in Urine by Test strip NORM NORMAL: Negat [facility] Bilirubin.total [Presence] in Urine by Test strip NEG NORMAL: Negative [facility] Ketones [Presence] in Urine by Test strip NEG NORMAL: Negative [facility] Protein [Mass/volume] in Urine by Test strip NEG NORMAL: Negat [facility] Nitrite [Presence] in Urine by Test strip NEG NORMAL: Negative [facility] BLOOD NEG NORMAL: Negative [facility] Leukocyte esterase [Presence] in Urine by Test strip 100 JAVAN L: Negative [facility] Urobilinogen [Mass/volume] in Urine by Test strip NOR less kavon n 1.0 mg/dL [facility] MICROSCOPIC See Below [facility] ital WBC 3 - 5 NORMAL: NONE SEEN [facility] Erythrocytes [#/volume] in Urine by Test strip None Seen NORMAL: NON E SEEN [facility] EPITHELIAL MANY NORMAL: NONE SEEN A [facility] Bacteria [Presence] in Urine sediment by Light microscopy Tr medina NORMAL: NONE SEEN [facility] Amorphous sediment [Presence] in Urine sediment by Light rosi roscopy 1+ NORMAL: NONE SEEN [facility] ID Date Data Source [id number] 11/09/2020 12:43:00 AM EDT [facility] [address] [place] [address] ---------NAME--------- NUMBER SEX AGE ADMIT DISC. XRAY# F/C TYPE CYN GARRISON [id number] F 25 11/08/20 [id number] XB2 O/P DATE OF : 1995 M/R# [id number] PH#: [id number] LOCATION: TRANSCRIBED: 11/09/20 43 IF US OB LIMITED 1OR MORE [id number] STOP: 11/09/20 15:21 ADB 8819 Reason for Exam: POSSIBLE SROM PHYSICIAN: NANETTE GA===== R A D I O L O G Y R E P O R T ==PATIENT HISTORY:US OB LIMITED 1OR MORE FETUSESPossible ROMULTRASOUND PELVIS TRANSABDOMINALCOMPARISON: NoneHISTORY: US OB LIMITED 1OR MORE FETUSES Possible ROMTECHNIQUE:Ultrasound images through the pelvis obtained via transabdominal approach.FINDINGS:Single live intrauterine gestation identified in vertex presentation. Clinicalage given as 31 weeks and 6 days.Anterior placenta without abruption or previa. heart rate is detected at 135 bpm.YULISA 18.8.Cervix is not imaged.IMPRESSIONS:Single live intrauterine gestation in vertex presentation, clinical age of 31weeks and 6 days.Anterior placenta without abruption or previa.Electronically Signed By:Umesh Wei M.D. , RadiologistDate/Time: 11/09/20 00:43 Name Value Range Interpretation Code Description Data Dolores rce(s) Supporting Document(s) ID Date Data Source [id number] 11/08/2020 11:50:00 PM EDT [facility] ([facility]) Name Value Range Interpretation Code Description Data Dolores rce(s) Supporting Document(s) Culture Urine Laboratory test result [facility] ([facility]) _CULTURE URINE_ ^$[id number] ^^[id number] $$[id number] ^^214701 $$[id number] $$391160 $$343455 $$111260 $$218940 $$441613 $$892738 $$857109 $$967233 $$011322 $$332239 $$123391 $$236380 $$019873 $$035129 $$876768 $$717486 $$503486 $$325446 $$225421 $$522507 $$141835 $$784968 ^^367512 $$836573 $$185252 $$513437 -- Continued on next page -- Patient: CYN GARRISON Order: [id number] Page 2 Culture: CULTURE URINE Status: Final -- Continued on next page -- Patient: CYN GARRISON Order: [id number] Page 2 Culture: CULTURE URINE Status: Prelim $$[id number] $$[id number] REPORTED DATE/TIME: 11/13/2020 16:07 Culture: CULTURE URINE Status: Final Urine Culture,Comprehensive: P1 Mixed urogenital drew 10,000-25,000 colony forming units per m L Previous result entered on 11/11/2020 09:23 ET No growth after 18-24 hours. P1 Test performed by: [facility] #: [id number] [address] [place] [phone] [facility] [address] Internal Communications Specialist : Jose Martin Aguilar MD NPI #: Internal Medicine Nurse : 11/11/20.1329.XMT.SENT REF 11/13/20.1917.XMT.SENT REF ID Date Data Source [id number] 11/08/2020 11:50:00 PM EDT [facility] ([facility]) Name Value Range Interpretation Code Description Data Dolores rce(s) Supporting Document(s) Urinalysis Laboratory test result [facility] ([facility]) URINALYSIS Source Laboratory test result [facility] ([facility]) Color Laboratory test result [facility] ([facility]) Clarity Laboratory test result [facility] ([facility]) Spec [place] 1.010 1.001-1.030 [facility] ([facility]) pH 6.5 5-9 [facility] ([facility]) Glucose Laboratory test result [facility] ([facility]) Ketone Laboratory test result [facility] ([facility]) Bilirubin Laboratory test result [facility]) Nitrite Laboratory test result [facility] ([facility]) Protein Laboratory test result [facility] ([facility]) Blood Laboratory test result [facility] ([facility]) Leuk Est 500 Abnormal (applies to non-numeric res ults) [facility] ([facility]) Urobilinogen Laboratory test result [facility] ([facility]) Microscopic Laboratory test result M [facility] ([facility]) RBC Laboratory test result [facility] ([facility]) WBC Laboratory test result Abnormal (applies to non -numeric results) [facility] ([facility]) Epithelial Laboratory test result [facility] ([facility]) Bacteria Laboratory test result [facility] ([facility]) Mucous Laboratory test result [facility] ([facility]) ID Date Data Source [id number] 11/08/2020 11:50:00 PM EDT [facility] ([facility]) Name Value Range Interpretation Code Description Data Dolores rce(s) Supporting Document(s) Laboratory test finding (navigational concept) Laboratory test result [facility] ([facility]) _AMNISURE MEMBRANE TEST_ Laboratory test finding (navigational concept) Laboratory test result [facility] ([facility]) Laboratory test finding (navigational concept) Laboratory test result [facility] ([facility]) Laboratory test finding (navigational concept) [id number] [facility] ([facility]) Laboratory test finding (navigational concept) Laboratory test result [facility] ([facility]) NORMAL RANGE: NO RUPTURED MEMBRANES THE AMNISURE ROM TEST RESULTS ARE QUALITATIVE. NO QUANTITATIVE INTERPRETATION SHOULD BE MADE BASED ON THE TEST RESULTS. RESULTS SHOULD BE USED IN CONJUCTION WITH OTHER CLINICAL INFORMATION Laboratory test finding (navigational concept) [id number] [facility] ID Date Data Source [id number] 11/13/2020 07:17:00 PM EDT [facility] Name Value Range Interpretation Code Description Data Dolores rce(s) Supporting Document(s) CULTURE URINE [facility] _CULTURE URINE_$$[id number]$$664421$$623817$$762242$$059938$$338376$$006297$$513341$$743565$$ 897043$$783377$$549387$$545598$$857085$$966732$$942067$$256110$$544487$$932502$$ 383998$$362032$$941783$$701869$$065634$$565020$$539747$$164460 -- Continued on next page --Patient: CYN GARRISON Order: [id number] Page 2Culture: CULTURE URINE Status: Final ==== -- Continued on next page --Patient: CYN GARRISON Order: [id number] Page 2Culture: CULTURE URINE Status: Prelim =====$$[id number]$$[id number] DATE/TIME: 11/13/2020 16:07Culture: CULTURE URINE Status: FinalUrine Culture,Comprehensive: [id number] urogenital flora10,000-25,000 colony forming units per mL Previous result entered on 11/11/2020 09:23 ET No growth after 18-24 hours.P1 Test performed by: [facility] LINA #: [id number] [address] [place] [address] [phone] [facility] [address]Oamcxup Director : Jose Martin Aguilar MD NPI #:Internal Medicine Nurse : 11/11/20.1329.XMT.SENT REF 11/13/20.1917.XMT.SENT REF ID Date Data Source [id number] 11/09/2020 12:26:00 AM EDT [facility] Name Value Range Interpretation Code Description Data Dolores rce(s) Supporting Document(s) UR[facility]ALYSIS [facility] URINALYSIS SOURCE Clean Catch [facility] COLOR yellow NORMAL: Yellow [facility] CLARITY clear NORMAL: Clear [facility] Specific gravity of Urine by Test strip 1.010 1.001 - 1.030 [facility] pH 6.5 5 - 9 [facility] Glucose [Mass/volume] in Urine by Test strip NORM NORMAL: Negat [facility] Bilirubin.total [Presence] in Urine by Test strip NEG NORMAL: Negative [facility] Ketones [Presence] in Urine by Test strip NEG NORMAL: Negative [facility] Protein [Mass/volume] in Urine by Test strip NEG NORMAL: Negat [facility] Nitrite [Presence] in Urine by Test strip NEG NORMAL: Negative [facility] BLOOD NEG NORMAL: Negative [facility] Leukocyte esterase [Presence] in Urine by Test strip 500 JAVAN L: Negative A [facility] Urobilinogen [Mass/volume] in Urine by Test strip NOR less kavon n 1.0 mg/dL [facility] MICROSCOPIC See Below [facility] ital WBC 10 - 15 NORMAL: NONE SEEN [facility] Erythrocytes [#/volume] in Urine by Test strip 0 - 1 NORMAL: NON E SEEN [facility] EPITHELIAL FEW NORMAL: NONE SEEN [facility] Bacteria [Presence] in Urine sediment by Light microscopy 1+ SMALL NORMAL: NONE SEEN [facility] Mucus [Presence] in Urine sediment by Light microscopy Trace NORMAL: NONE SEEN [facility] ID Date Data Source [id number] 11/09/2020 12:17:00 AM EDT [facility] Name Value Range Interpretation Code Description Data Dolores rce(s) Supporting Document(s) AMNISURE MEMBRANE TEST [facility] _AMNISURE MEMBRANE TEST_ [facility] RE[facility] NE[facility]IVE [facility] TRIP LOT # [id number] [facility]P DATE [id number] [facility] ROCEDURAL CONTROL [facility] NORMAL RANGE: NO RUPTURED MEMBRANES THE AMNISURE ROM TEST RESULTS ARE QUALITATIVE. NO QUANTITATIVEINTERPRETATION SHOULD BE MADE BASED ON THE TEST RESULTS.RESULTS SHOULD BE USED IN CONJUCTION WITH OTHER CLINICAL INFORMATION ID Date Data Source [id number] 11/08/2020 10:37:00 AM EDT [facility] [address] [place] [address] PHONE: [phone] FAX: [phone] Name .................. : CYN GARRISON Acct Number.................. : [id number] ROOM. ................. : 003-1 MR Number ................... : [id number] Stay type ............. : O/P Discharge Date......... ... : 11/07/20 Admit Date ......... : 11/07/20 Admit Phys .................... : NWOGU BRUNO Date of ....... : 1995 Family Phys ................... : NON STAFF Phone .................. : [phone] Age ................................ : 25 Film# .................. .:[id number] Sex ................................. : F Unsigned transcriptions are preliminary reports and do not represent a medical or legal document OB BIOPHYSICAL PROFILE [id number] COMPLETE:11/07/20 14:42 [facility] [id number] Reason for Exam: DECREASED MOVEMENT OB ULTRASOUND WITH BIOPHYSICAL PROFILE SCORE: INDICATION: Decreased movement. FINDINGS: Limited transabdominal OB ultrasound performed. Expected age is 31 weeks 4 days. Estimated date of delivery is 01/05/21. A single fetus in vertex presentation. Placenta is anterior grade 1. No previa. No abruption. Amniotic fluid index is normal at 19.4 cm. The largest pocket is 6.2 cm. The cervix is closed at 3.1 cm. heart rate is 149 beats per minute. BIOPHYSICAL PROFILE: Breathing 2, movement 2, tone 2, fluid 2. IMPRESSION: Viable intrauterine in vertex presentation. Expected age is 31 weeks 4 days. Biophysical profile score is 8/8. Electronically Reviewed and Signed By Pierre Styles DO , 11/08/20 10:37, JOHANNY Transcribe Initials: DZ , Transcribe Date: 11/08/20 01:36, Dictation Date: Copy for: 710 MED REC DISCHARGED Page 1 of 1 Name Value Range Interpretation Code Description Data Dolores rce(s) Supporting Document(s) ID Date Data Source [id number] 11/07/2020 02:50:00 PM EDT [facility] ([facility]) Name Value Range Interpretation Code Description Data Dolores rce(s) Supporting Document(s) Comprehensive [facility] Laboratory test result [facility] ([facility]) COMPREHENSIVE METABOLIC PANEL Sodium 134 meq/L 134-153 [facility] ([facility]) Potassium 4.1 meq/L 3.6-5.0 [facility] ([facility]) Co2 22 meq/L 22-30 [facility] ([facility]) Chloride 103 meq/L 98-107 [facility] ([facility]) Glucose 65 mg/dL 70-99 Below low normal [facility] ( [facility]) BUN 6 mg/dL 7-21 Below low normal [facility] ([facility]) Creatinine 0.4 mg/dL 0.7-1.5 Below low normal [facility] ( [facility]) Total Protein 5.7 g/dL 6.3-8.2 Below low normal [facility] ([facility]) BUN/Creat 15 8-27 [facility] ([facility]) Albumin 3.5 g/dL 3.9-5.0 Below low normal [facility] ( [facility]) Globulin 2.2 GM/DL 2.4-3.2 Below low normal [facility] ( [facility]) A/G Ratio 1.6 0.8-2.0 [facility] ([facility]) Total Bili Laboratory test result 0.2-1.3 [facility] ([facility]) Calcium 9.4 mg/dL 8.4-10.2 [facility] ([facility]) Alkaline Phos 126 U/L 38-126 [facility] ([facility]) Sgot/Ast 13 U/L 5-40 [facility] ([facility]) Anion Gap 9.0 mmol/L 8.0-16.0 [facility] ([facility]) SGPT/Alt 6 U/L 7-56 Below low normal [facility] ([facility]) Age 25 yrs [facility] ([facility]) Non-Aa GFR Laboratory test result [facility] ([facility]) Afr Amer GFR Laboratory test result [facility] ([facility]) Male GFR Interprentation 20-49 yrs >60 mL/min Normal 50-59 yrs >56 mL/min Normal 60-69 yrs >49 mL/min Normal 70-79yrs >42 mL/min Normal 80 and above >35 mL/min Normal Female GFR Interpretation 20-39 yrs >60 mL/min Normal 40-49 yrs >58 mL/min Normal 50-59 yrs >51 mL/min Normal 60-69 yrs >45 mL/min Normal 70-79 yrs >39 mL/min Normal 80 and above >32 mL/min Normal ID Date Data Source [id number] 11/07/2020 02:50:00 PM EDT [facility] ([facility]) Name Value Range Interpretation Code Description Data Dolores rce(s) Supporting Document(s) Lipase [Enzymatic activity/volume] in Serum or Plasma 27 U/L 13-6 0 [facility] ([facility]) ID Date Data Source [id number] 11/07/2020 02:50:00 PM EDT [facility] ([facility]) Name Value Range Interpretation Code Description Data Dolores rce(s) Supporting Document(s) CBC W/Automated Diff Laboratory test result [facility] ([facility]) COMPLETE BLOOD COUNT WBC 10.3 10^3/uL 4.2-11.0 [facility] ([facility]) RBC 3.36 10^6/uL 4.20-5.40 Below low normal [facility] ([facility]) Hematocrit 29.6 % 37.0-47.0 Below low normal [facility] ( [facility]) Hemoglobin 10.3 g/dL 12.0-16.0 Below low normal [facility] ( [facility]) MCV 88.1 fL 81.0-101 [facility] ([facility]) MCHC 34.8 g/dL 31.0-36.0 [facility] ([facility]) MCH 30.7 pg 27.0-34.0 [facility] ([facility]) RDW 12.5 % 11.5-14.5 [facility] ([facility]) Platelets 224 10^3/uL 150-450 [facility] ([facility]) Neut 66.6 % 37.0-80.0 [facility] ([facility]) MPV 11.2 fL 7.4-10.4 Above high normal [facility] ([facility]) Lymph 19.3 % 25.0-40.0 Below low normal [facility] ( [facility]) Zavala 8.5 % 3.0-8.0 Above high normal [facility] ([facility]) Baso 0.8 % 0.0-2.5 [facility] ([facility]) Eos 1.2 % 0.0-7.0 [facility] ([facility]) %NRBC 0.0 % 0.0-0.0 [facility] ([facility]) %Ig 3.6 % 0.0-0.0 Above high normal [facility] ([facility]) #Lymph 1.98 10^3/uL 0.60-3.40 [facility] ([facility]) #Neut 6.84 10^3/uL 2.00-6.90 [facility] ([facility]) #Zavala 0.87 10^3/uL 0.00-0.90 [facility] ([facility]) #Eos 0.12 10^3/uL 0.00-0.70 [facility] ([facility]) #Baso 0.08 10^3/uL 0.00-0.20 [facility] ([facility]) #Ig 0.37 10^3/uL 0.00-0.10 Above high normal [facility] ([facility]) #NRBC 0.00 10^3/uL 0.00-0.00 [facility] ([facility]) Manual Diff Laboratory test result [facility] ([facility]) RBC Morph Laboratory test result [facility] ([facility]) ID Date Data Source [id number] 11/07/2020 04:06:00 PM EDT [facility] Name Value Range Interpretation Code Description Data Dolores rce(s) Supporting Document(s) COMPREHENSIVE METABOLIC PANEL [facility] COMPREHENSIVE METABOLIC PANEL Sodium [Moles/volume] in Serum or Plasma 134 mEq/L 134 - 153 [facility] Potassium [Moles/volume] in Serum or Plasma 4.1 mEq/L 3.6 - 5.0 [facility] Chloride [Moles/volume] in Serum or Plasma 103 mEq/L 98 - 107 [facility] Carbon dioxide, total [Moles/volume] in Serum or Plasma 22 MEQ/L 22 - 30 [facility] Glucose [Mass/volume] in Serum or Plasma 65 MG/DL 70 - 99 L [facility] BUN 6 MG/DL 7 - 21 L [facility] al Creatinine [Mass/volume] in Serum or Plasma 0.4 MG/DL 0.7 - 1.5 L [facility] BUN/CREAT 15 8 - 27 [facility] Protein [Mass/volume] in Serum or Plasma 5.7 G/DL 6.3 - 8.2 L [facility] Albumin [Mass/volume] in Serum or Plasma 3.5 G/DL 3.9 - 5.0 L [facility] Globulin [Mass/volume] in Serum by calculation 2.2 GM/DL 2.4 - 3.2 L [facility] A/G RATIO 1.6 0.8 - 2.0 [facility] Calcium [Mass/volume] in Serum or Plasma 9.4 MG/DL 8.4 - 10.2 [facility] Bilirubin.total [Mass/volume] in Serum or Plasma <0.7 MG/DL 0.2 - 1.3 [facility] Alkaline phosphatase [Enzymatic activity/volume] in Serum or Plasma 126 U/L 38 - 126 [facility] Aspartate aminotransferase [Enzymatic activity/volume] in Serum or Plasma 13 U/L 5 - 40 [facility] Alanine aminotransferase [Enzymatic activity/volume] in Seru m or Plasma 6 U/L 7 - 56 L [facility] Anion gap 3 in Serum or Plasma 9.0 mmol/L 8.0 - 16.0 [facility] AGE 25 yrs [facility] NON-AA GFR >60 mL/min [facility] ital AFR AMER GFR >60 mL/min [facility] Male GFR In terprentation 20-49 yrs >60 mL/min Normal 50-59 yrs >56 mL/min Normal 60-69 yrs >49 mL/min Normal 70-79yrs >42 mL/min Normal 80 and above >35 mL/min Normal Female GFR Interpretation 20-39 yrs >60 mL/min Normal 40-49 yrs >58 mL/min Normal 50-59 yrs >51 mL/min Normal 60-69 yrs >45 mL/min Normal 70-79 yrs >39 mL/min Normal 80 and above >32 mL/min Normal ID Date Data Source [id number] 11/07/2020 04:04:00 PM T [facility] Name Value Range Interpretation Code Description Data Dolores rce(s) Supporting Document(s) Lipase [Enzymatic activity/volume] in Serum or Plasma 27 U/L 13 - 60 [facility] ID Date Data Source [id number] 11/07/2020 03:00:00 PM [facility] Name Value Range Interpretation Code Description Data Dolores rce(s) Supporting Document(s) CBC W/AUTOMATED DIFF [facility] COMPLETE BLOOD COUNT Leukocytes [#/volume] in Blood by Automated count 10.3 10^3/uL 4.2 - 11.0 [facility] Erythrocytes [#/volume] in Blood by Automated count 3.36 10^6/uL 4. 20 - 5.40 L [facility] Hemoglobin [Mass/volume] in Blood 10.3 g/dL 12.0 - 16.0 L [facility] Hematocrit [Volume Fraction] of Blood by Automated count 29.6 % 3 7.0 - 47.0 L [facility] Erythrocyte mean corpuscular volume [Entitic volume] by Auto mated count 88.1 fL 81.0 - 101 [facility] Erythrocyte mean corpuscular hemoglobin [Entitic mass] by Automated count 30.7 pg 27.0 - 34.0 [facility] Erythrocyte mean corpuscular hemoglobin concentration [Mass/volume] by Automated count 34.8 g/dL 31.0 - 36.0 [facility] Erythrocyte distribution width [Ratio] by Automated count 12.5 % 11.5 - 14.5 [facility] Platelets [#/volume] in Blood by Automated count 224 10^3/uL 150 - 45 0 [facility] Platelet mean volume [Entitic volume] in Blood by Automated count 11.2 fL 7.4 - 10.4 H [facility] Neutrophils/100 leukocytes in Blood by Automated count 66.6 % 37. 0 - 80.0 [facility] Lymphocytes/100 leukocytes in Blood by Manual count 19.3 % 25.0 - 40.0 L [facility] Monocytes/100 leukocytes in Blood by Automated count 8.5 % 3.0 - 8.0 H [facility] Eosinophils/100 leukocytes in Blood by Automated count 1.2 % 0.0 - 7.0 [facility] Basophils/100 leukocytes in Blood by Automated count 0.8 % 0.0 - 2.5 [facility] %IG 3.6 % 0.0 - 0.0 H [facility] al %NRBC 0.0 % 0.0 - 0.0 [facility] al Neutrophils [#/volume] in Blood by Automated count 6.84 10^3/uL 2.00 - 6.90 [facility] Lymphocytes [#/volume] in Blood by Automated count 1.98 10^3/uL 0.60 - 3.40 [facility] Monocytes [#/volume] in Blood by Automated count 0.87 10^3/uL 0.00 - 0.90 [facility] Eosinophils [#/volume] in Blood by Automated count 0.12 10^3/uL 0.00 - 0.70 [facility] Basophils [#/volume] in Blood by Automated count 0.08 10^3/uL 0.00 - 0.20 [facility] #IG 0.37 10^3/uL 0.00 - 0.10 H [facility] #NRBC 0.00 10^3/uL 0.00 - 0.00 [facility] MANUAL DIFF NOT INDICATED [facility] RBC MORPH NOT INDICATED [facility] ID Date Data Source [id number] 11/07/2020 02:25:00 PM EDT [facility] ([facility]) Name Value Range Interpretation Code Description Data Dolores rce(s) Supporting Document(s) Culture Urine Laboratory test result [facility] ([facility]) _CULTURE URINE_ ^$[id number] ^^692556 $$[id number] ^^438488 $$193105 $$384543 $$520967 $$763169 $$766322 $$403199 $$565768 $$197050 $$099744 $$757698 $$059523 $$128753 $$182394 $$133262 $$713600 $$838323 $$707731 $$963526 $$343184 $$080201 $$014363 $$963886 $$816245 ^^068772 $$693825 $$492456 $$374583 -- Continued on next page -- Patient: CAPANELLI BLADIMIR Order: [id number] Page 2 Culture: CULTURE URINE Status: Final -- Continued on next page -- Patient: CAPANELLI BLADIMIR Order: [id number] Page 2 Culture: CULTURE URINE Status: Prelim -- Continued on next page -- Patient: CYN GARRISON Order: Page 2 Culture: CULTURE URINE Status: Prelim -- Continued on next page -- Patient: CYN GARRISON Order: Page 2 Culture: CULTURE URINE Status: Prelim $$[id number] $$[id number] REPORTED DATE/TIME: 11/12/2020 08:06 Culture: CULTURE URINE Status: Final Isolate 1 Acinetobacter baumannii Flag: A . . . . . . .9 Greater than 100,000 colony forming units per mL Previous result entered on 11/11/2020 09:33 ET Acinetobacter baumannii Previous result entered on 11/10/2020 15:22 ET Gram negative rods Previous result entered on 11/10/2020 13:46 ET Gram negative rods Urine Culture,Comprehensive: P1 Acinetobacter baumannii Flag: A Patient: CYN GARRISON Order: [id number] Page 3 Culture: CULTURE URINE Status: Final ISOLATE 1 Acinetobacter baumannii Isolate 1 Antibiotic ROSI Int Units ug/mL Ampicillin/Sulbactam S S . . . . . .32-3 Cefepime S S . . . . . .6644-9 Cefotaxime I I . . . . . .108-1 Ceftazidime S S . . . . . .133-9 Ceftriaxone I I . . . . . .141-2 Ciprofloxacin S S . . . . . .185-9 Gentamicin S S . . . . . .267-5 Imipenem S S . . . . . .279-0 Levofloxacin S S . . . . . .25239-9 Meropenem S S . . . . . .6652-2 Piperacillin I I . . . . . .408-5 Tetracycline S S . . . . . .496-0 Tobramycin S S . . . . . .508-2 Trimethoprim/Sulfa S S . . . . . .516-5 P1 Test performed by: [facility] #: [id number] [address] [place] [address] [phone] [facility] [address] Internal Communications Specialist : Jose Martin Aguilar MD NPI #: Internal Medicine Nurse : 11/10/20.2004.XMT.SENT REF 11/10/20.XMT.SENT REF 11/11/20.1328.XMT.SENT REF 11/11/20.1328.XMT.SENT REF 11/11/20.1328.XMT.SENT REF 11/12/20.1057.XMT.SENT REF ID Date Data Source [id number] 11/07/2020 02:25:00 PM EDT [facility] ([facility]) Name Value Range Interpretation Code Description Data Dolores rce(s) Supporting Document(s) Urinalysis Laboratory test result [facility] ([facility]) URINALYSIS Source Laboratory test result [facility] ([facility]) Color Laboratory test result [facility] ([facility]) Clarity Laboratory test result [facility] ([facility]) Spec [place] 1.020 1.001-1.030 [facility] ([facility]) Glucose 50 Abnormal (applies to non-numeric res ults) [facility] ([facility]) pH 8 5-9 [facility] ([facility]) Bilirubin Laboratory test result [facility] ([facility]) Ketone 15 Abnormal (applies to non-numeric res ults) [facility] ([facility]) Nitrite Laboratory test result [facility] ([facility]) Protein Laboratory test result [facility] ([facility]) Blood Laboratory test result [facility] ([facility]) Leuk Est 500 Abnormal (applies to non-numeric res ults) [facility] ([facility]) Urobilinogen Laboratory test result [facility] ([facility]) Microscopic Laboratory test result [facility] ([facility]) RBC Laboratory test result [facility] ([facility]) WBC Laboratory test result [facility] ([facility]) Epithelial Laboratory test result Abnormal (applies to non -numeric results) [facility] ([facility]) ID Date Data Source [id number] 11/12/2020 10:57:00 AM EDT [facility] Name Value Range Interpretation Code Description Data Dolores rce(s) Supporting Document(s) CULTURE URINE [facility] _CULTURE URINE_$$[id number]$$129436$$570653$$704459$$102489$$728625$$729701$$692439$$659288$$ 258950$$464144$$212682$$527978$$566919$$165444$$663697$$057918$$370307$$876906$$ 547927$$230500$$703640$$506757$$538351$$388578$$192430$$199410 -- Continued on next page --Patient: CYN GARRISON Order: [id number] Page 2Culture: CULTURE URINE Status: Final ==== -- Continued on next page --Patient: CYN GARRISON Order: [id number] Page 2Culture: CULTURE URINE Status: Prelim ===== -- Continued on next page --Patient: CYN GARRISON Order: [id number] Page 2Culture: CULTURE URINE Status: Prelim ===== -- Continued on next page --Patient: CYN GARRISON Order: [id number] Page 2Culture: CULTURE URINE Status: Prelim =====$$[id number]$$[id number] DATE/TIME: 11/12/2020 08:06Culture: CULTURE URINE Status: FinalIsolate 1 Acinetobacter baumannii Flag: A . . . . . . .9Greater than 100,000 colony forming units per mL Previous result entered on 11/11/2020 09:33 ET Acinetobacter baumannii Previous result entered on 11/10/2020 15:22 ET Gram negative rods Previous result entered on 11/10/2020 13:46 ET Gram negative rodsUrine Culture,Comprehensive: [id number] baumannii Flag: Angelatient: CYN GARRISON Order: [id number] Page 3Culture: CULTURE URINE Status: Final ====ISOLATE 1 Acinetobacter baumannii Isolate 1Antibiotic ROSI IntUnits ug/mL ----Ampicillin/Sulbactam S S . . . . . .32-3Cefepime S S . . . . . .6644-9Cefotaxime I I . . . . . .108-1Ceftazidime S S . . . . . .133-9Ceftriaxone I I . . . . . .141- 2Ciprofloxacin S S . . . . . .185-9Gentamicin S S . . . . . .267-5Imipenem S S . . . . . .279-0Levofloxacin S S . . . . . .94042-9Oscluuvyd S S . . . . . .6652- 2Piperacillin I I . . . . . .408-5Tetracycline S S . . . . . .496-0Tobramycin S S . . . . . .508-2Trimethoprim/Sulfa S S . . . . . .516-5P1 Test performed by: Jet Gonzalez LINA #: [id number] [address] [place] [address] [phone] [facility] [address]Zqhrpzv Director : Jose Martin Aguilar MD NPI #:Internal Medicine Nurse : 11/10/20.2004.XMT.SENT REF 11/10/20.2012.XMT.SENT REF 11/11/20.1328.XMT.SENT REF 11/11/20.1328.XMT.SENT REF 11/11/20.1328.XMT.SENT REF 11/12/20.1057.XMT.SENT REF ID Date Data Source [id number] 11/07/2020 02:49:00 PM EDT [facility] Name Value Range Interpretation Code Description Data Dolores rce(s) Supporting Document(s) [facility] COLOR yellow NORMAL: Yellow [facility] CLARITY clear NORMAL: Clear [facility] Specific gravity of Urine by Test strip 1.020 1.001 - 1.030 [facility] pH 8 5 - 9 [facility] al Glucose [Mass/volume] in Urine by Test strip 50 NORMAL: Negat [facility] Bilirubin.total [Presence] in Urine by Test strip NEG NORMAL: Negative [facility] Ketones [Presence] in Urine by Test strip 15 NORMAL: Negative [facility] Protein [Mass/volume] in Urine by Test strip NEG NORMAL: Negat [facility] Nitrite [Presence] in Urine by Test strip NEG NORMAL: Negative [facility] BLOOD NEG NORMAL: Negative [facility] Leukocyte esterase [Presence] in Urine by Test strip 500 JAVAN L: Negative [facility] Urobilinogen [Mass/volume] in Urine by Test strip NOR less kavon n 1.0 mg/dL [facility] MICROSCOPIC See Below [facility] ital WBC 1 - 3 NORMAL: NONE SEEN [facility] Erythrocytes [#/volume] in Urine by Test strip None Seen NORMAL: NON E SEEN [facility] EPITHELIAL MODERATE NORMAL: NONE SEEN A [facility] Hospital ID Date Data Source [id number] 06/04/2020 05:24:00 PM EST [facility] Procedure Performed By: [facility] [address] [place], [place] [id number] Director: Octavio Luke MD Name Value Range Interpretation Code Description Data Dolores rce(s) Supporting Document(s) Urine Culture Normal (applies to non-numeric re sults) [facility] ID Date Data Source [id number] 06/05/2020 07:53:00 AM EST [facility] Procedure Performed By: [facility] [address] [place], [place] [address] Director: Octavio Luke MD Mixed drew: Mixed drew, probable contamination. Name Value Range Interpretation Code Description Data Dolores rce(s) Supporting Document(s) ID Date Data Source [id number] 06/02/2020 01:44:00 PM EST [facility] Name Value Range Interpretation Code Description Data Dolores rce(s) Supporting Document(s) CF Mutation Interpretation () Normal (applies to n on-numeric results) [facility] Cystic Fibrosis Mutation Panel was cance lled on 05/23/2020 at 08:49; Duplicate test request. Test canceled, ordered in duplicate with order number [id number] ( ). Test Performed by: [place] [address] Internal Medicine Nurse: Jose Cesar M.D. Ph.D.; CLIA# [id number] ID Date Data Source [id number] 05/21/2020 01:51:00 AM T [facility] Name Value Range Interpretation Code Description Data Dolores rce(s) Supporting Document(s) Varicella-Zoster IgG Ab,S res See Note No rmal (applies to non-numeric results) [facility] Absence of detectable Varicella Zoster v irus IgG antibodies. A negative result generally indicates no detectable antibody, but does not rule out acute infection. If VZV exposure is suspected, a second sample should be collected and tested no less than one or two weeks later. Test performed or referred by The [address] [address] ID Date Data Source [id number] 05/21/2020 01:51:00 AM [facility] Name Value Range Interpretation Code Description Data Dolores rce(s) Supporting Document(s) Toxoplasma Ab,IgM Negative Normal (applies to non-numeri c results) [facility] No IgM antibodies to T. gondii detected. Results may be negative in patients with recent infection or who are significantly immunosuppressed. Test Performed by: [facility] [address] [place] [address] Internal Medicine Nurse: Jose Cesar M.D. Ph.D.; IA# [id number] ID Date Data Source [id number] 05/21/2020 01:51:00 AM EDT [facility] Name Value Range Interpretation Code Description Data Dolores rce(s) Supporting Document(s) HBELEC Hemoglobin A2 2.0-3.3 Normal (applies to non-num екатерина results) [facility] HBELC Hemoglobin F 0.0-0.9 Normal (applies to non-numer ic results) [facility] ADDITIONAL INFORMATIO N This test has been modified from the skiver box toe's instructions. Its performance characteristics were determined by [facility] in a manner consistent with CLIA requirements. This test has not been cleared or approved by the U.S. Food and Drug Administration. HBELC Hemoglobin A 95.8-98.0 Normal (applies to non-numer ic results) [facility] HBELC Variant Normal (applies to non-numeric resul ts) [facility] REFERENCE VALUE------ No abnormal variants ADDITIONAL INFORMATION This test has been modified from the skiver box toe's instructions. Its performance characteristics were determined by [facility] in a manner consistent with CLIA requirements. This test has not been cleared or approved by the U.S. Food and Drug Administration. HBELC Interpretation Normal (applies to non-num екатерина results) [facility] No electrophoretic evidence of abnormal hemoglobin or beta thalassemia. See comment. Comment: These results do not exclude alpha thalassemia. The vast majority of hemoglobin variants and beta thalassemias are excluded, although some rare clinically significant hemoglobin disorders are electrophoretically silent. If otherwise unexplained lifelong/familial symptoms such as hemolysis (i.e. Cyril body hemolytic anemia), microcytosis, erythrocytosis, cyanosis, or hypoxia are present and additional testing is desired, please call the [facility] ( ). If alpha thalassemia is a consideration, alpha globin gene deletion/duplication analysis is available (ATHAL/Alpha-Globin Gene Analysis). Additional sample required. Test Performed by: [address] [address] Internal Medicine Nurse: Jose Cesar M.D. Ph.D.; CLIA# [id number] ID Date Data Source [id number] 05/21/2020 01:51:00 AM EDT [facility] Name Value Range Interpretation Code Description Data Odlores rce(s) Supporting Document(s) Toxoplasma Ab,IgG result Negative Normal (applies to non -numeric results) [facility] Toxoplasma IgG Value Normal (applies to non-num екатерина results) [facility] REFERENCE VALUE------ <=9 IU/mL (Negative) 10-11 IU/mL (Equivocal) >=12 IU/mL (Positive) Test Performed by: [facility] [address] [place] [address] Internal Medicine Nurse: Jose Cesar M.D. Ph.D.; CLIA# [id number] ID Date Data Source [id number] 05/19/2020 07:04:00 PM [facility] Name Value Range Interpretation Code Description Data Dolores rce(s) Supporting Document(s) Lead,Blood (Venous) result <5.0 Normal (applies to n on-numeric results) [facility] ADDITIONAL INFORMATIO N Testing performed by Inductively Coupled Plasma-Mass Spectrometry (ICP-MS). This test was developed and its performance characteristics determined by [facility] in a manner consistent with CLIA requirements. This test has not been cleared or approved by the U.S. Food and Drug Administration. [facility] Patient Street Normal (applies to non-nume raphael results) [facility] Patient City Normal (applies to non-numeri c results) [facility] Patient State Normal (applies to non-numer ic results) [facility] Patient Zip [address] Normal (applies to non-numeric results) [facility] Patient [facility] Normal (applies to non-nume raphael results) [facility] Patient Phone [phone] Normal (applies to non-nume raphael results) [facility] Patient Race Normal (applies to non-numeri c results) [facility] Patient Ethnicity Normal (applies to non-n umeric results) [facility] Patient Occupation Normal (applies to non- numeric results) [facility] Patient Employer Normal (applies to non-nu meric results) [facility] Guardian Name,First Normal (applies to non -numeric results) [facility] Guardian Name,Last Normal (applies to non- numeric results) [facility] Provider Name Normal (applies to non-numer ic results) [facility] Provider Street Normal (applies to non-num екатерина results) [facility] Provider [facility] Normal (applies to non-numer ic results) [facility] Provider State Normal (applies to non-nume raphael results) [facility] Provider Zip [address] Normal (applies to non-numeri c results) [facility] Provider Phone [phone] Normal (applies to non-num екатерина results) [facility] Submitting Lab Phone [phone] Normal (applies to non-numeric results) [facility] Test Performed by: [facility] [address] [place] [address] Internal Medicine Nurse: Jose Cesar M.D. Ph.D.; CLIA# [id number] ID Date Data Source [id number] 05/19/2020 06:48:00 PM EDT [facility] Name Value Range Interpretation Code Description Data Dolores rce(s) Supporting Document(s) Lead,Blood (Venous) result <5.0 Normal (applies to n on-numeric results) [facility] ADDITIONAL INFORMATIO N Testing performed by Inductively Coupled Plasma-Mass Spectrometry (ICP-MS). This test was developed and its performance characteristics determined by [facility] in a manner consistent with CLIA requirements. This test has not been cleared or approved by the U.S. Food and Drug Administration. [facility]BD[facility] Patient Street Normal (applies to non-nume raphael results) [facility] Patient [facility] Normal (applies to non-numeri c results) [facility] Patient State Normal (applies to non-numer ic results) [facility] [place] [address] Normal (applies to non-numeric results) [facility] Patient [facility] Normal (applies to non-nume raphael results) [facility] Patient Phone [phone] Normal (applies to non-nume raphael results) [facility] Race Normal (applies to non-numeri c results) [facility] Patient Ethnicity Normal (applies to non-n umeric results) [facility] Patient Occupation Normal (applies to non- numeric results) [facility] Patient Employer Normal (applies to non-nu meric results) [facility] Guardian Name,First Normal (applies to non -numeric results) [facility] Guardian Name,Last Normal (applies to non- numeric results) [facility] Provider Name Normal (applies to non-numer ic results) [facility] Provider Street Normal (applies to non-num екатерина results) [facility] PBDV Provider City Normal (applies to non-numer ic results) [facility] PBD[facility] Provider State Normal (applies to non-nume raphael results) [facility] PBDV Provider Zip [address] Normal (applies to non-numeri c results) [facility] PBDV Provider Phone [phone] Normal (applies to non-num екатерина results) [facility] Submitting Lab Phone [phone] Normal (applies to non-numeric results) [facility] Test Performed by: [facility] [address] [place] [address] Internal Medicine Nurse: Jose Cesar M.D. Ph.D.; CLIA# [id number] ID Date Data Source [id number] 05/17/2020 08:29:00 PM EDT [facility] Name Value Range Interpretation Code Description Data Dolores rce(s) Supporting Document(s) Hep Bs Ag result T-Test Nonreactive Normal (applies to non -numeric results) [facility] Test Performed By: [facility] [address] [place] [address] Director: Katja Luke MD ID Date Data Source [id number] 05/17/2020 08:29:00 PM [facility] Value Range Interpretation Code Description Data Dolores rce(s) Supporting Document(s) Rubella Ab,IgG result >10.0 Normal (applies to non-nu meric results) [facility] Test Performed By: [facility] [address] [place] [address] Director: Katja Luke MD Interpretation of Results Less than 5.0 IU/mL - Negative for IgG antibodies to Rubella virus 5.0 - 9.9 IU/mL - Equivocal. Suggest repeat testing on new sample 10.0 IU/mL or greater - Positive for IgG antibodies to Rubella virus ID Date Data Source [id number] 05/17/2020 08:29:00 PM EDT [facility] Value Range Interpretation Code Description Data Dolores rce(s) Supporting Document(s) Hepatitis C Virus Ab result Nonreactive Norm al (applies to non-numeric results) [facility] Test Performed By: [facility] [address] [place] [address] Director: Katja Luke MD ID Date Data Source [id number] 05/17/2020 08:29:00 PM EDT [facility] Name Value Range Interpretation Code Description Data Dolores rce(s) Supporting Document(s) HIV Screen result Nonreactive Normal (applies to non-numer ic results) [facility] Test Performed By: [facility] [address] [place] [address] Director: Katja Luke MD ID Date Data Source [id number] 05/17/2020 08:29:00 PM EDT [facility] Value Range Interpretation Code Description Data Dolores rce(s) Supporting Document(s) Syphilis Serology result Nonreactive Normal (applies to non-numeric results) [facility] Test Performed By: [facility] [address] [place] [address] Director: Katja Luke MD ID Date Data Source [id number] 05/17/2020 08:03:00 PM EDT [facility] Value Range Interpretation Code Description Data Dolores rce(s) Supporting Document(s) Hep C Ab-T Test Nonreactive Normal (applies to non-numeric results) [facility] Test Performed By: [facility] [address] [place] [address] Director: Katja Luke MD ID Date Data Source [id number] 05/17/2020 08:03:00 PM EDT [facility] Value Range Interpretation Code Description Data Dolores rce(s) Supporting Document(s) HIV 1/2 Ab p24 Ag Screen Nonreactive Normal (applies to non-numeric results) [facility] Test Performed By: [facility] [address] [place] [address] Director: Katja Luke MD ID Date Data Source [id number] 05/17/2020 08:03:00 PM EDT [facility] Value Range Interpretation Code Description Data Dolores rce(s) Supporting Document(s) Syphilis Serology Nonreactive Normal (applies to non-numer ic results) [facility] Test Performed By: [facility] [address] [place] [address] Director: Katja Luke MD ID Date Data Source [id number] 05/17/2020 08:03:00 PM EDT [facility] Value Range Interpretation Code Description Data Dolores rce(s) Supporting Document(s) Rubella Ab,IgG >10.0 Normal (applies to non-numeric r esults) [facility] Test Performed By: [facility] [address] [place] [address] Director: Katja Luke MD Interpretation of Results Less than 5.0 IU/mL - Negative for IgG antibodies to Rubella virus 5.0 - 9.9 IU/mL - Equivocal. Suggest repeat testing on new sample 10.0 IU/mL or greater - Positive for IgG antibodies to Rubella virus ID Date Data Source [id number] 05/17/2020 08:03:00 PM EDT [facility] Value Range Interpretation Code Description Data Dolores rce(s) Supporting Document(s) Hep Bs Ag Result T-Test Nonreactive Normal (applies to non -numeric results) [facility] Test Performed By: [facility] [address] [place] [address] Director: Katja Luke MD ID Date Data Source [id number] 05/17/2020 01:17:00 PM [facility] Value Range Interpretation Code Description Data Dolores rce(s) Supporting Document(s) Thyroid Stimulate Hormone TSH 0.358-3.74 No rmal (applies to non-numeric results) [facility] ID Date Data Source [id number] 05/17/2020 12:40:00 PM [facility] Value Range Interpretation Code Description Data Dolores rce(s) Supporting Document(s) White Blood Count 3.5-10.5 Normal (applies to non-numeri c results) [facility] Red Blood Count 3.90-5.00 Normal (applies to non-numeric results) [facility] Hemoglobin 12.0-15.5 Normal (applies to non-numeric resul ts) [facility] Hematocrit 34.9-44.5 Normal (applies to non-numeric resul ts) [facility] Mean Corpuscular Volume 81.2-95.1 Normal (applies to non- numeric results) [facility] Mean Corpuscular Hgb 25.6-32.2 Normal (applies to non-num екатерина results) [facility] Mean Corpuscular Hgb Conc 32.0-36.0 Normal (applies to no n-numeric results) [facility] Red Cell Distribution Width 11.9-15.5 Normal (appli es to non-numeric results) [facility] Platelet Count 257 x10 3/uL 150-450 Normal (applies to non-numeric results) [facility] Mean Platelet Volume 9.4-12.4 Normal (applies to non-num екатерина results) [facility] Neutrophils% (Auto) 31.0-71.0 Normal (applies to non-nume raphael results) [facility] Lymphocytes% (Auto) 20.0-55.0 Normal (applies to non-nume raphael results) [facility] Monocytes% (Auto) 4.0-12.0 Normal (applies to non-numeri c results) [facility] Eosinophils% (Auto) 1.0-8.0 Below low normal [facility] Basophils% (Auto) 0.0-2.0 Normal (applies to non-numeri c results) [facility] Immature Granulocytes% (Auto) 0.0-2.0 Normal (nesha lies to non-numeric results) [facility] Neutrophils# (Auto) 1.50-6.20 Normal (applies to non-nume raphael results) [facility] Lymphocytes# (Auto) 1.20-4.00 Normal (applies to non-nume raphael results) [facility] Monocytes# (Auto) 0.00-0.90 Normal (applies to non-numeri c results) [facility] Eosinophils# (Auto) 0.00-0.50 Normal (applies to non-nume raphael results) [facility] Basophils# (Auto) 0.00-0.20 Normal (applies to non-numeri c results) [facility] Immature Granulocytes# (Auto) 0.00-7.00 No rmal (applies to non-numeric results) [facility] ID Date Data Source [id number] 05/20/2020 09:51:00 PM EDT [facility] Name Value Range Interpretation Code Description Data Dolores rce(s) Supporting Document(s) Varicella-Zoster IgG Ab,S res See Note No rmal (applies to non-numeric results) [facility] Absence of detectable Varicella Zoster v irus IgG antibodies. A negative result generally indicates no detectable antibody, but does not rule out acute infection. If VZV exposure is suspected, a second sample should be collected and tested no less than one or two weeks later. Test performed [place] [address] ID Date Data Source [id number] 05/20/2020 09:51:00 PM EDT [facility] Name Value Range Interpretation Code Description Data Dolores rce(s) Supporting Document(s) HBELC Hemoglobin A2 2.0-3.3 Normal (applies to non-nume raphael results) [facility] HBELC Hemoglobin F 0.0-0.9 Normal (applies to non-numer ic results) [facility] ADDITIONAL INFORMATIO N This test has been modified from the skiver box toe's instructions. Its performance characteristics were determined by [facility] in a manner consistent with CLIA requirements. This test has not been cleared or approved by the U.S. Food and Drug Administration. HBELC Hemoglobin A 95.8-98.0 Normal (applies to non-numer ic results) [facility] HBELC Hemoglobin Variant Normal (applies to non -numeric results) [facility] REFERENCE VALUE------ No abnormal variants ADDITIONAL INFORMATION This test has been modified from the skiver box toe's instructions. Its performance characteristics were determined by [facility] in a manner consistent with CLIA requirements. This test has not been cleared or approved by the U.S. Food and Drug Administration. HBELC Hgb Electroph Interp Normal (applies to n on-numeric results) [facility] No electrophoretic evidence of abnormal hemoglobin or beta thalassemia. See comment. Comment: These results do not exclude alpha thalassemia. The vast majority of hemoglobin variants and beta thalassemias are excluded, although some rare clinically significant hemoglobin disorders are electrophoretically silent. If otherwise unexplained lifelong/familial symptoms such as hemolysis (i.e. Cyril body hemolytic anemia), microcytosis, erythrocytosis, cyanosis, or hypoxia are present and additional testing is desired, please call the [facility] ( ). If alpha thalassemia is a consideration, alpha globin gene deletion/duplication analysis is available (ATHAL/Alpha-Globin Gene Analysis). Additional sample required. Test Performed by: [place] [id number] Internal Medicine Nurse: Jose Cesar M.D. Ph.D.; CLIA# [id number] ID Date Data Source [id number] 05/20/2020 09:51:00 PM EDT [facility] Value Range Interpretation Code Description Data Dolores rce(s) Supporting Document(s) Toxoplasma Ab,IgM result Negative Normal (applies to non -numeric results) [facility] No IgM antibodies to T. gondii detected. Results may be negative in patients with recent infection or who are significantly immunosuppressed. Test Performed by: [facility] [address] [place] [address] Internal Medicine Nurse: Jose Cesar M.D. Ph.D.; CLIA# [id number] ID Date Data Source [id number] 05/20/2020 09:51:00 PM EDT [facility] Name Value Range Interpretation Code Description Data Dolores rce(s) Supporting Document(s) Toxoplasma Ab,IgG result Negative Normal (applies to non -numeric results) [facility] Toxoplasma IgG Value Normal (applies to non-num екатерина results) [facility] REFERENCE VALUE------ <=9 IU/mL (Negative) 10-11 IU/mL (Equivocal) >=12 IU/mL (Positive) Test Performed by: [facility] [address] [place] [address] Internal Medicine Nurse: Jose Cesar M.D. Ph.D.; CLIA# [id number] ID Date Data Source [id number] 06/06/2020 07:56:00 AM EST [facility] HUMAN SERVICE COORDINATOR TEST TO BE ORDERED: PAP reflex HPV (HR)LAST MENSTRUAL PERIOD 04/05/20OURCE OF SPECIMEN Endo/ExocxCLINICAL FINDINGS PREVIOUS HUMAN SERVICE COORDINATOR HX HSIL 03/2017CLINICAL DIAGNOSIS Screening, low risk (cx) Name Value Range Interpretation Code Description Data Dolores rce(s) Supporting Document(s) Cytology Order HUMAN SERVICE COORDINATOR Pap result LAB SendOut No rmal (applies to non-numeric results) [facility] ID Date Data Source [id number] 05/19/2020 07:06:00 PM EDT [facility] Name Value Range Interpretation Code Description Data Dolores rce(s) Supporting Document(s) Ethanol, UDSPAIN Cutoff=0.020 Normal (applies to non-numer ic results) [facility] Amphetamine, UDSPAIN Zzhkvf=3895 Normal (applies to non-nu meric results) [facility] Amphetamine test includes Amphetamine an d Methamphetamine. Barbiturates, UDSPAIN Irszbk=557 Normal (applies to non-nu meric results) [facility] Benzodiazepines, UDSPAIN Emlhzh=451 Normal (applies to non -numeric results) [facility] Cannabinoids, UDSPAIN Cutoff=20 Normal (applies to non-nu meric results) [facility] Cocaine, UDSPAIN Daugbo=837 Normal (applies to non-numeric results) [facility] Opiates, UDSPAIN Flhqqy=413 Normal (applies to non-numeric results) [facility] Opiate test includes Codeine, Morphine, Hydromorphone, Hydrocodone. Oxyco/Oxymorphone, UDSPAIN Appdel=442 Normal (applie s to non-numeric results) [facility] Test includes Oxycodone and Oxymorphone Phencyclidine, UDSPAIN Cutoff=25 Normal (applies to non-n umeric results) [facility] Methadone, UDSPAIN Txqoqe=751 Normal (applies to non-numer ic results) [facility] Propoxyphene, UDSPAIN Tmseto=179 Normal (applies to non-nu meric results) [facility] Meperidine, UDSPAIN Ndtwoq=777 Normal (applies to non-nume raphael results) [facility] This test was developed and its performa nce characteristics determined by [facility]. It has not been cleared or approved by the Food and Drug Administration. Tramadol, UDSPAIN Delmru=968 Normal (applies to non-numeri c results) [facility] Creatinine, UDSPAIN 20.0-300.0 Normal (applies to non-nume raphael results) [facility] Performed at: [facility] [address] [id number] Internal Medicine Nurse: Romana Philippe MD, Phone: [phone] ID Date Data Source [id number] 05/19/2020 07:06:00 PM EDT [facility] Name Value Range Interpretation Code Description Data Dolores rce(s) Supporting Document(s) Yolette species Negative Normal (applies to non-numeric results) [facility] Gardnerella vaginalis Negative Very abnormal (applies to non-numeric units [facility] Trichomonas vaginalis Negative Normal (applies to non-nu meric results) [facility] Performed at: [address] [id number] Internal Medicine Nurse: Romana Philippe MD, Phone: [phone] ID Date Data Source [id number] 05/19/2020 06:56:00 PM EDT [facility] Name Value Range Interpretation Code Description Data Dolores rce(s) Supporting Document(s) Ethanol,UDSPAIN Cutoff=0.020 Normal (applies to non-numeri c results) [facility] Amphetamine,UDSPAIN Hzkere=1874 Normal (applies to non-num екатерина results) [facility] Amphetamine test includes Amphetamine an d Methamphetamine. Barbiturates, UDSPAIN Tdipjd=417 Normal (applies to non-nu meric results) [facility] Benzodiazepines,UDSPAIN Cfjntg=981 Normal (applies to non- numeric results) [facility] Cannabinoids, UDSPAIN Cutoff=20 Normal (applies to non-nu meric results) [facility] Cocaine, UDSPAIN Cdhadk=930 Normal (applies to non-numeric results) [facility] Opiates,UDSPAIN Mtmokm=724 Normal (applies to non-numeric results) [facility] Opiate test includes Codeine, Morphine, Hydromorphone, Hydrocodone. Oxyco/Oxymorphone, UDSPAIN Nejcey=161 Normal (applie s to non-numeric results) [facility] Test includes Oxycodone and Oxymorphone Phencyclidine, UDSPAIN Cutoff=25 Normal (applies to non-n umeric results) [facility] Methadone, UDSPAIN Tpcoze=727 Normal (applies to non-numer ic results) [facility] Propoxyphene, UDSPAIN Gdhbfw=147 Normal (applies to non-nu meric results) [facility] Meperidine, UDSPAIN Yrqjfk=607 Normal (applies to non-nume raphael results) [facility] This test was developed and its performa nce characteristics determined by [facility]. It has not been cleared or approved by the Food and Drug Administration. Tramadol,UDSPAIN Bidfic=740 Normal (applies to non-numeric results) [facility] Creatinine, UDSPAIN 20.0-300.0 Normal (applies to non-nume raphael results) [facility] Performed at: RN - [facility] [address] [id number] Internal Medicine Nurse: Romana Philippe MD, Phone: [phone] ID Date Data Source [id number] 05/19/2020 06:56:00 PM EDT [facility] Name Value Range Interpretation Code Description Data Dolores rce(s) Supporting Document(s) AFFDNA Yolette species Negative Normal (applies to non-n umeric results) [facility] AFFDNA Gardnerella vaginalis Negative Harmony y abnormal (applies to non-numeric units [facility] AFFDNA Trichomonas vaginalis Negative Normal (appl ies to non-numeric results) [facility] Performed at: RN - [facility] [address] [id number] Internal Medicine Nurse: Romana Philippe MD, Phone: [phone] ID Date Data Source [id number] 05/19/2020 02:56:00 PM EDT [facility] Name Value Range Interpretation Code Description Data Dolores rce(s) Supporting Document(s) Chlamydia,Urine result Negative Normal (applies to non-n umeric results) [facility] Test Performed By: [facility] [address] [place] [address] Director: Katja Luke MD . GC Urine result Negative Normal (applies to non-numeric results) [facility] Test Performed By: [facility] [address] [place] [address] Director: Katja Luke MD . Methodology: Second generation nucleic acid amplification. ID Date Data Source [id number] 05/19/2020 02:48:00 PM EDT [facility] Name Value Range Interpretation Code Description Data Dolores rce(s) Supporting Document(s) Chlamydia,Urine Negative Normal (applies to non-numeric results) [facility] Test Performed By: [facility] [address] [place] [address] Director: Katja Luke MD . GC Urine Negative Normal (applies to non-numeric resul ts) [facility] Test Performed By: [facility] [address] [place] [address] Director: Katja Luke MD . Methodology: Second generation nucleic acid amplification. ID Date Data Source [id number] 05/19/2020 10:35:00 AM EDT [facility] sp[facility] Procedure Performed By: [facility] [address] [place] [address] Director: Octavio Luke MD Mixed drew: Mixed drew, probable contamination. Name Value Range Interpretation Code Description Data Dolores rce(s) Supporting Document(s) ID Date Data Source [id number] 05/19/2020 10:19:00 AM EDT [facility] Procedure Performed By: [facility] [address] [place] [address] Director: Octavio Luke MD Name Value Range Interpretation Code Description Data Dolores rce(s) Supporting Document(s) Urine Culture Normal (applies to non-numeric re sults) [facility] ID Date Data Source [id number] 05/18/2020 07:31:00 AM EDT [facility] Name Value Range Interpretation Code Description Data Dolores rce(s) Supporting Document(s) Bupren Screen,Ur wRfx LCI SO Negative Normal (appl ies to non-numeric results) [facility] Test Performed By: [facility] [address] [place] [address] Director: Katja Luke MD Therapeutic Drug Threshold for Buprenorphine: 5 ng/mL All positive findings are presumptive and unconfirmed. Confirmation of positive Buprenorphine is automatically reflexed and sent to reference laboratory. Unconfirmed results must not be used for non- medical purposes (i.e. pre-employment and legal purposes) ID Date Data Source [id number] 05/18/2020 12:55:00 AM EDT [facility] Name Value Range Interpretation Code Description Data Dolores rce(s) Supporting Document(s) Bupren Scrn,Ur wRfx LCI SO res Negative N ormal (applies to non-numeric results) [facility] Test Performed By: [facility] [address] [place] [address] Director: Katja Luke MD Therapeutic Drug Threshold for Buprenorphine: 5 ng/mL All positive findings are presumptive and unconfirmed. Confirmation of positive Buprenorphine is automatically reflexed and sent to reference laboratory. Unconfirmed results must not be used for non-medical purposes (i.e. pre-employment and legal purposes) ID Date Data Source [id number] 10/01/2020 10:14:00 AM [facility] Name Value Range Interpretation Code Description Data Dolores rce(s) Supporting Document(s) ID Date Data Source [id number] 05/16/2020 02:00:[address] [facility] Imaging Services Department Imaging Report [address] [address] %(RAD)RES..mtdd.print.filter("line") Name: BLADIMIR ADDISON : 1995 Age/Sex: 24F Ordering Provider: DUKE Mcdonald Med Rec #: [id number] Reg Status: DEP REF Room #: Date of Service: 05/16/20 Report Number: [id number] cc:DUKE Mcdonald; Rj Santamaria MD Send Report To: [id number] US/ Transvaginal OB Reason for exam: DATING,VIABILITY FINDINGS: LMP: Unknown = EDC EGA = wks days Earliest U/S Today = EDC 01-10-21 EGA= 5 wks 6 days Gestation: Single. Gestational sac size: 19.7 x 11.1 x 17.7 mm = 16.2 mm AVw 3d. [place] Rump Length: 2.8 mm = 5w 6d EDC: 01-10-21 Heart Rate: 117 bpm. Placental Location: Undetermined. Presentation: Undetermined. Regular Shaped Gestational Sac: Yes Adequate Amniotic Fluid: Yes Yolk Sac: Yes Cervical length: 40.5 mm. A subchorionic bleed is identified measuring 1.2 x 1.3 x 0.5 cm. Uterus measures 9.9 x 5.2 x 5.2 cm. Right ovary measures 3.5 x 2.2 x 2.9 cm. Left ovary measures 3.4 x 2.0 x 2.6 cm. No free fluid or torsion is identified. IMPRESSION: Single, live, intrauterine gestation at 5w 6d. FHR 117 bpm. EDC:01-10-21. Subchorionic bleed is identified measuring 1.2 x 1.3 x 0.5 cm. REPORT DICTATED BY ZACK SHEA, REVIEWED AND SIGNED BY DR. BALLARD. REPORT SIGNATURE ON FILE Reported By: Doug Ballard MD <Electronically signed by oDug Ballard MD> 05/17/20 1149 Dictation Date/Time: 05/16/20 1208 Transcribed Date/Time: 05/16/20 1400 Thermal Intelligence Analyst: ELVIA Name Value Range Interpretation Code Description Data Dolores rce(s) Supporting Document(s) Procedure Social History Code Duration Value Status Description Data Source(s ) 01/10/2021 12:00:00 AM EDT completed [facility] Vital Signs ID Date Data Source UNK Name Value Range Interpretation Code Description Data Source(s) Systolic blood pressure 102 mm[Hg] 102 mm[Hg] M [facility] ([facility]) Diastolic blood pressure 70 mm[Hg] 70 mm[Hg] [facility] ([facility]) Heart rate 106 /min 106 /min [facility]) Respiratory rate 16 /min 16 /min [facility] ( [facility]) Oxygen saturation in Arterial blood by Pulse oximetry 98 % 98 % [facility] Body weight 162.38 [lb_av] 162.38 [lb_av] MEDEN T ([facility]) Body weight 73.653 kg 73.653 kg [facility]) Body height 61 [in_i] 61 [in_i] [facility] ([facility]) 5'1" Body mass index (BMI) [Ratio] 30.7 kg/m2 30.7 k g/m2 [facility] ([facility]) Body surface area Derived from formula 1.73 m2 1.73 m2 [facility] ([facility]) Heart rate 91 /min 91 /min [facility] ([facility]) Respiratory rate 16 /min 16 /min [facility] ( [facility]) Oxygen saturation in Arterial blood by Pulse oximetry 100 % 100 % [facility] ([facility]) Body weight 162.00 [lb_av] 162.00 [lb_av] MED[facility] T ([facility]) Body weight 73.483 kg 73.483 kg [facility] ([facility]) Body height 61 [in_i] 61 [in_i] [facility] ([facility]) 5'1" Systolic blood pressure 112 mm[Hg] 112 mm[Hg] M [facility] ([facility]) Diastolic blood pressure 68 mm[Hg] 68 mm[Hg] [facility] ([facility]) Body mass index (BMI) [Ratio] 30.6 kg/m2 30.6 k g/m2 [facility] ([facility]) Body surface area Derived from formula 1.73 m2 1.73 m2 [facility] ([facility]) Body temperature 98.2 [degF] 98.2 [degF] [facility] ([facility]) Body height 61 [in_i] 61 [in_i] [facility] ([facility]) 5'1" Body weight 177.00 [lb_av] 177.00 [lb_av] [facility] T ([facility]) Body mass index (BMI) [Ratio] 33.4 kg/m2 33.4 k g/m2 [facility] ([facility]) Body weight 80.287 kg 80.287 kg [facility] ([facility]) Systolic blood pressure 132 mm[Hg] 132 mm[Hg] M [facility] ([facility]) Diastolic blood pressure 78 mm[Hg] 78 mm[Hg] [facility] ([facility]) Heart rate 80 /min 80 /min [facility]) Body surface area Derived from formula 1.79 m2 1.79 m2 [facility] ([facility]) Systolic blood pressure 128 mm[Hg] 128 mm[Hg] M [facility]ENT ([facility]) Diastolic blood pressure 76 mm[Hg] 76 mm[Hg] [facility] ([facility]) Heart rate 87 /min 87 /min [facility] ([facility]) Body temperature 98.2 [degF] 98.2 [degF] [facility] ([facility]) Body weight 178.00 [lb_av] 178.00 [lb_av] MED[facility] T ([facility]) Body weight 80.741 kg 80.741 kg [facility] ([facility]) Body height 61 [in_i] 61 [in_i] [facility] ([facility]) 5'1" Body mass index (BMI) [Ratio] 33.6 kg/m2 33.6 k g/m2 [facility] ([facility]) Body surface area Derived from formula 1.80 m2 1.80 m2 [facility] Systolic blood pressure 132 mm[Hg] 132 mm[Hg] M EDENT ([facility]) Diastolic blood pressure 84 mm[Hg] 84 mm[Hg] [facility] ([facility]) Heart rate 83 /min 83 /min [facility] ([facility]) Body weight 177.00 [lb_av] 177.00 [lb_av] [facility] T ([facility]) Body weight 80.287 kg 80.287 kg [facility] ([facility]) Body height 61 [in_i] 61 [in_i] [facility] ([facility]) 5'1" Body mass index (BMI) [Ratio] 33.4 kg/m2 33.4 k g/m2 [facility] Body surface area Derived from formula 1.79 m2 1.79 m2 [facility] ([facility]) ID Date Data Source [id number] 02/19/2021 03:18:46 PM EDT [facility] Name Value Range Interpretation Code Description Data Source(s) WEIGHT RECORDED 177.00 pounds 177.00 pounds [facility] Height 61 Inches 061 Inches [facility] ID Date Data Source [id number] 01/06/2021 05:48:30 PM EDT [facility] Name Value Range Interpretation Code Description Data Source(s) WEIGHT RECORDED 175.00 pounds 175.00 pounds [facility] Height 61 Inches 061 Inches [facility] ID Date Data Source [id number] 12/22/2020 02:43:47 PM EDT [facility] Name Value Range Interpretation Code Description Data Source(s) WEIGHT RECORDED 160.00 pounds 160.00 pounds [facility] Height 61 Inches 061 Inches [facility]
--- OUTSIDE RECORDS SUMMARY | 2021-07-08 17:09 | CCD ---
Author Author [facility] Organization [facility] Address Unknown Phone Unavailable Care Team Providers Care Helper Teacher Name Role Phone ESTEBAN AVILA MD Unavailable [...] AVILA MD Unavailable Unavailable ANGEL, GRECIA DARIN APPLICATIONS DEVELOPER Unavailable Unavailable ANGEL, GRECIA DARIN APPLICATIONS DEVELOPER Unavailable Unavailable ANGEL, GRECIA DARIN APPLICATIONS DEVELOPER Unavailable Unavailable ANGEL, GRECIA DARIN APPLICATIONS DEVELOPER Unavailable Unavailable ANGEL, GRECIA DARIN APPLICATIONS DEVELOPER Unavailable Unavailable ANGEL, GRECIA DARIN APPLICATIONS DEVELOPER Unavailable Unavailable ANGEL, GRECIA DARIN APPLICATIONS DEVELOPER Unavailable Unavailable ANGEL, GRECIA DARIN APPLICATIONS DEVELOPER Unavailable Unavailable ANGEL, GRECIA DARIN APPLICATIONS DEVELOPER Unavailable Unavailable ANGEL, GRECIA DARIN APPLICATIONS DEVELOPER Unavailable Unavailable ANGEL, GRECIA DARIN APPLICATIONS DEVELOPER Unavailable Unavailable ANGEL, GRECIA DARIN APPLICATIONS DEVELOPER Unavailable Unavailable ANGEL, GRECIA DARIN APPLICATIONS DEVELOPER Unavailable Unavailable ANGEL, GRECIA DARIN APPLICATIONS DEVELOPER Unavailable Unavailable ANGEL, GRECIA DARIN APPLICATIONS DEVELOPER Unavailable Unavailable ANGEL, GRECIA DARIN APPLICATIONS DEVELOPER Unavailable Unavailable ANGEL, GRECIA DARIN APPLICATIONS DEVELOPER Unavailable Unavailable ANGEL, GRECIA DARIN APPLICATIONS DEVELOPER Unavailable Unavailable ANGEL, GRECIA DARIN APPLICATIONS DEVELOPER Unavailable Unavailable ANGEL, GRECIA DARIN APPLICATIONS DEVELOPER Unavailable Unavailable ANGEL, GRECIA DARIN APPLICATIONS DEVELOPER Unavailable Unavailable ANGEL, GRECIA DARIN APPLICATIONS DEVELOPER Unavailable Unavailable ANGEL, GRECIA ADRIN APPLICATIONS DEVELOPER Unavailable Unavailable NANETTE, F UMANG MD Unavailable [...] MD Unavailable Unavailable Jia F Brown, F BIOFUELS PLANT MANAGER BIOFUELS PLANT MANAGER Unavailable Unavailable Jia F Brown, F BIOFUELS PLANT MANAGER BIOFUELS PLANT MANAGER Unavailable Unavailable BROWN, ALICIA JIA APPLICATIONS DEVELOPER Unavailable Unavailable BROWN, ALICIA JIA APPLICATIONS DEVELOPER Unavailable Unavailable BROWN, ALICIA JIA APPLICATIONS DEVELOPER Unavailable Unavailable BROWN, ALICIA JIA APPLICATIONS DEVELOPER Unavailable Unavailable BROWN, ALICIA JIA APPLICATIONS DEVELOPER Unavailable Unavailable BROWN, ALICIA JIA APPLICATIONS DEVELOPER Unavailable Unavailable BROWN, ALICIA JIA APPLICATIONS DEVELOPER Unavailable Unavailable BROWN, ALICIA JIA APPLICATIONS DEVELOPER Unavailable Unavailable BROWN, ALICIA JIA APPLICATIONS DEVELOPER Unavailable Unavailable BROWN, ALICIA JIA APPLICATIONS DEVELOPER Unavailable Unavailable BROWN, ALICIA JIA APPLICATIONS DEVELOPER Unavailable Unavailable BROWN, ALICIA JIA APPLICATIONS DEVELOPER Unavailable Unavailable BROWN, ALICIA JIA APPLICATIONS DEVELOPER Unavailable Unavailable BROWN, ALICIA JIA APPLICATIONS DEVELOPER Unavailable Unavailable BROWN, ALICIA JIA APPLICATIONS DEVELOPER Unavailable Unavailable BROWN, ALICIA JIA APPLICATIONS DEVELOPER Unavailable Unavailable BROWN, ALICIA JIA APPLICATIONS DEVELOPER Unavailable Unavailable BROWN, ALICIA JIA APPLICATIONS DEVELOPER Unavailable Unavailable BROWN, ALICIA JIA APPLICATIONS DEVELOPER Unavailable Unavailable BROWN, ALICIA JIA APPLICATIONS DEVELOPER Unavailable Unavailable BROWN, ALICIA JIA APPLICATIONS DEVELOPER Unavailable Unavailable BROWN, ALICIA JIA APPLICATIONS DEVELOPER Unavailable Unavailable BROWN, ALICIA JIA APPLICATIONS DEVELOPER Unavailable Unavailable BROWN, ALICIA JIA APPLICATIONS DEVELOPER Unavailable Unavailable BROWN, ALICIA JIA APPLICATIONS DEVELOPER Unavailable Unavailable BROWN, ALICIA JIA APPLICATIONS DEVELOPER Unavailable Unavailable BROWN, ALICIA JIA APPLICATIONS DEVELOPER Unavailable Unavailable BROWN, ALICIA JIA APPLICATIONS DEVELOPER Unavailable Unavailable BROWN, ALICIA JIA APPLICATIONS DEVELOPER Unavailable Unavailable BROWN, ALICIA JIA APPLICATIONS DEVELOPER Unavailable Unavailable BROWN, ALICIA JIA APPLICATIONS DEVELOPER Unavailable Unavailable BROWN, ALICIA JIA APPLICATIONS DEVELOPER Unavailable Unavailable BROWN, ALICIA JIA APPLICATIONS DEVELOPER Unavailable Unavailable BROWN, ALICIA JIA APPLICATIONS DEVELOPER Unavailable Unavailable BROWN, ALICIA JIA APPLICATIONS DEVELOPER Unavailable Unavailable BROWN, ALICIA JIA APPLICATIONS DEVELOPER Unavailable Unavailable BROWN, ALICIA JIA APPLICATIONS DEVELOPER Unavailable Unavailable BROWN, ALICIA JIA APPLICATIONS DEVELOPER Unavailable Unavailable BROWN, ALICIA JIA APPLICATIONS DEVELOPER Unavailable Unavailable BROWN, ALICIA JIA APPLICATIONS DEVELOPER Unavailable Unavailable NON, PHYSICIAN STAFF Unavailable Unavailable [...] is protected by Article 27-F of the [facility] Public Health law. If you continue you may have access to information: Regarding HIV / AIDS; Provided by facilities licensed or operated by the [facility] Office of Mental Health; or Provided by the [facility] Office for People With Developmental Disabilities. If such information is present, then the following [facility] mandated warning applies: This information has been [...] law may result in a fine or assisted sentence or both. A general authorization for the release of medical or other information is NOT sufficient authorization for further disc losure. Allergies and Adverse Reactions Type Description Substance Reaction Status Data Source(s ) No Known Drug Allergies No Known Drug Allergies [facility] No Known Environmental Allergies No Known Environmental Al lergies [facility] No Known Food Allergies No Known Food Allergies [facility] No Known Allergies No Known Allergies [facility] Encounters Encounter Providers Location Date Indications Data Source(s ) Outpatient Attender: DARIN ANGEL NP Family Practice 03/12/2021 01 :30:00 PM EDT [facility] ([facility]) Outpatient Attender: DARIN ANGEL NPConsultant: STAFF NON 03/12/2021 01:17:00 PM EDT - 03/12/2021 01:17:[address] [facility] Outpatient Attender: DARIN ANGEL NP 021 02:09:00 PM EDT - 02/19/2021 02:09:00 PM EDT [facility] Outpatient Attender: DEEPAK AVILA MD 12/26 10:04:00 AM EDT - 01/06/2021 11:01:00 AM EDT [facility] Inpatient Attender: DEEPAK AVILA MDConsultant: STAFF NON 01/06/2021 10:04:00 AM EDT - 01/08/2021 04:28:00 PM EDT [facility] Patient discharged. Outpatient Attender: Jose Santos DOConsultant: STAFF NON 01/05/2021 02:34:00 PM EDT - 01/05/2021 02:34:00 PM EDT [facility] Outpatient Attender: UMANG FITZPATRICK MDConsultant: STAFF NON 01/02/2021 10:58:00 PM EDT - 01/02/2021 11:52:00 PM EDT [facility] Patient discharged. Outpatient Attender: Jose Santos DOConsultant: STAFF NON 12/29/2020 05:15:00 PM EDT - 12/29/2020 06:50:00 PM EDT [facility] Patient discharged. Outpatient Attender: UMANG FITZPATRICK MDConsultant: STAFF NON 12/29/2020 01:27:00 PM EDT - 12/29/2020 01:27:00 PM EDT [facility] Outpatient Attender: UMANG FITZPATRICK MDConsultant: STAFF NON 12/28/2020 01:34:00 PM EDT - 12/28/2020 02:34:00 PM EDT [facility] Patient discharged. Outpatient Attender: UMANG FITZPATRICK MDConsultant: STAFF NON 12/22/2020 01:56:00 PM EDT - 12/22/2020 01:56:00 PM EDT [facility] Outpatient Attender: Efe Sanchez MDAdmitter: Efe scott MD 12/21/2020 04:04:00 AM EDT - 12/21/2020 05:39:00 AM EDT RULE OUT LABOR BLEEDING [facility] RULE OUT LABOR BLEEDING Patient discharged. Outpatient Attender: UMANG FITZPATRICK MDConsultant: STAFF NON 12/05/2020 10:08:00 PM EDT - 12/05/2020 11:34:00 PM EDT [facility] Patient discharged. Outpatient Attender: UMANG FITZPATRICK MDConsultant: STAFF NON 11/08/2020 11:44:00 PM EDT - 11/09/2020 01:00:00 AM EDT [facility] Patient discharged. Outpatient Attender: Jose Santos DOConsultant: STAFF NON 11/07/2020 02:01:00 PM EDT - 11/07/2020 06:10:00 PM EDT [facility] Patient discharged. Outpatient Attender: JIA COLLINS NP CPSCAORT-CPSGNOBG 07/28 09:18:00 AM EST - 08/10/2020 09:19:00 AM EST [facility] Patient discharged. Outpatient Attender: JIA COLLINS NP CPSCAORT-CPSGNOBG 05/28 10:32:00 AM EST - 06/14/2020 10:33:00 AM EST [facility] Patient discharged. Outpatient CPSCAORT-LABEJN 06/02/2020 08:06:00 PM [facility] Outpatient Attender: JIA COLLINS NP CPSCAORT-CPSGNOBG 12/2019 04:00:00 PM [facility] Outpatient Attender: JIA COLLINS NP ED-LABPNP 2019 02:53:00 PM EST - 06/02/2020 02:54:00 PM EST [id number] [facility] [id number] Patient discharged. Outpatient Attender: UNKNOWN CHICOCAORT-LABEJN 05/17/2020 02:44:00 PM EDT Z3A.01,Z34.81 [facility] Z3A.01,Z34.81 Outpatient Attender: DUKE Collins FNPAttender: JIA COLLINS NP ED-LAB 05/17/2020 11:39:00 AM EDT - 05/17/2020 11:40:00 AM EDT Z3A01 [facility] Z3A01 Patient discharged. Outpatient Attender: JIA COLLINS NP CPSCAORT-CPSGNOBG 04/28 10:40:00 AM EDT - 05/17/2020 10:41:[facility]. [facility] Attender: JIA COLLINS NP ED-IMAG 2019 10:59:00 AM EDT - 05/16/2020 11:00:00 AM EDT DATING & VIABILITY [facility] DATING & VIABILITY Patient discharged. Outpatient Attender: DUKE Collins FNPAttender: JIA COLLINS NP ED-LABGH 05/08/2020 11:03:00 AM EDT - 05/08/2020 11:04:00 AM EDT Z3A01 [facility] Z3A01 Patient discharged. Outpatient CPSCAORT-LABEJN 05/05/2020 02:58:00 PM EDT [facility] Medications Medication Brand Name Start Date Product Form Dose Route Admi nistrative Instructions Pharmacy Instructions Status Indications Reaction Description Data Source(s) Nortrel (28) Nortrel 35 (28) 03/12/2021 12:00:00 AM EDT ORAL active [facility] ([facility]) No Active Medications 02/19/2021 12:00:00 AM EDT completed [facility] ([facility]) 168 HR Ethinyl Estradiol 0.50611 MG/HR / norelgestromin 0.10677 MG/HR Transdermal Patch [Xulane] Xulane 02/19/2021 12:00:00 AM EDT completed [facility] ([facility]) Sulfamethoxazole 800 MG / Trimethoprim 160 MG Oral Tablet [B actrim] Bactrim DS 01/03/2021 12:00:00 AM EDT ORAL completed [facility] ([facility]) 0.75 % 2020 12:00:00 AM EDT gel 70 INSERT 1 APPLICATORFUL INTO VAGINA AT BEDTIME INSERT 1 APPLICATORFUL INTO VAGINA AT BEDTIME SOLD: 05/27/2020 [facility] Insurance Providers Payer name Policy type / Coverage type Policy ID Covered republican ID Covered republican's relationship to hodges Policy [place] Plan Information [facility] I [id number] Self [id number] EXCELLUS C [id number] Self [id number] EXCELLUS BLUE CROSS [id number] SP [id number] [facility] [place] -PHYSICIAN [id number] 18 [id number] [facility] [facility] [place] [id number] 18 [id number] [facility] [place] -PHYSICIAN [id number] [place] [place] [id number] 18 [id number] [facility] HEA [id number] S [id number] SELF PAY ONLY SP [facility] HUMANA [id number] 2 [id number] HUMANA [facility] REG O [id number] S [id number] [facility] [place] [id number] Unemployed [id number] [facility] [place] [id number] S [id number] LAKESHA [id number] SP [id number] [facility] [place] [id number] S [id number] [employer] MEDICA[employer] MANAGED CARE [id number] SP [id number] [facility] MEDICAID [id number] SP [id number] F BLUE CROSS OTHER [id number] SM [id number] [facility] MEDICAID [id number] SP [id number] F BLUE CROSS OTHER [id number] SM [id number] EXCELLUS BLUE CROSS [id number] SP [id number] EXCELLUS BLUE CROSS [id number] SP [id number] [facility]CS MEDICAID [id number] SP [id number] F CCS MEDICAID [id number] SP [id number] F EXCELLUS BLUE CROSS [id number] SP [id number] EXCELLUS BLUE CROSS [id number] SP [id number] [facility] COMMUNITY PLAN [id number] SP [id number] SELF PAY UNAVAILABLE SP UNAVAILA BLE L[facility]HA [id number] SP [id number] [facility] I [facility] [id number] 18 [id number] [facility] MAN -I/P [id number] 18 [id number] Problems, Conditions, and Diagnoses Code Display Name Description Problem Type Effective Dates Data Source(s) Z370 Single live Single live Diagnosis 01/06/2021 10:04:00 AM EDT [facility] [id number] Labor and delivery complicat ed by cord around neck, without compression, not applicable or unspecified Labor and delivery complicated by cord a round neck, without compression, not applicable or unspecified Diagnosis 01/06/2021 10:04:00 AM EDT [facility] O76 Abnormality in heart rate and rhyt hm complicating labor and delivery Abnormality in heart rate and rhythm complicating labor and delivery Diagnosis 01/06/2021 10:04:00 AM [facility] O770 Labor and delivery complicated by meconi um in amniotic fluid Labor and delivery complicated by meconium in amniotic fluid Diagnosis 06/2021 10:04:00 AM [facility] [id number] Nicotine dependence, cigarettes, uncompl icated Nicotine dependence, cigarettes, uncomplicated Diagnosis 01/06/2021 10:04:00 AM [facility] Z3A39 39 weeks gestation of 39 weeks gestation of Diagnosis 01/06/2021 10:04:00 AM [facility] G04166 Smoking (tobacco) complicating childbirt h Smoking (tobacco) complicating childbirth Diagnosis 01/06/2021 10:04:00 AM [facility] V84145 Smoking (tobacco) complicating , third trimester Smoking (tobacco) complicating , third trimester Diagnosis 12/26 10:04:00 AM [facility] Z3483 Encounter for supervision of other javan l , third trimester Encounter for supervision of other normal , third trimester Diagnosis 01/05/2021 02:34:00 PM [facility] Z3A38 38 weeks gestation of 38 weeks gestation of Diagnosis 01/02/2021 10:58:00 PM [facility] [id number] Decreased movements, t hird trimester, not applicable or unspecified Decreased movements, third trimest er, not applicable or unspecified Diagnosis 01/02/2021 10:58:00 PM [facility] Z369 Encounter for screening, unspe cified Encounter for screening, unspecified Diagnosis 12/28/2020 01:34:00 PM [facility] Z3A37 37 weeks gestation of 37 weeks gestation of Diagnosis 12/22/2020 01:56:00 PM [facility] Z3A34 34 weeks gestation of 34 weeks gestation of Diagnosis 12/05/2020 10:08:00 PM [facility] O4703 False labor before 37 completed weeks of gestation, third trimester False labor before 37 completed weeks of gestation, third trimester Diagnosis 12/05/2020 10:08:00 PM [facility] Z3A31 31 weeks gestation of 31 weeks gestation of Diagnosis 11/08/2020 11:44:00 PM [facility] Z3A30 30 weeks gestation of 30 weeks gestation of Diagnosis 11/07/2020 02:01:00 PM [facility] [id number] Maternal care for other spec ified problems, third trimester, not applicable or unspecified Maternal care for other specified problems, third trimester, not applicable or unspecified Diagnosis 021 02:01:00 PM [facility] R82.998 OTHER ABNORMAL FINDINGS IN URINE OTHER ABNORMAL FINDINGS IN URINE Diagnosis 06/02/2020 04:00:00 PM [facility] Z34.81 Encounter for supervision of other javan l , first trimester ENCOUNTER FOR SUPRVSN OF NORMAL , FIRST TRIMESTER Diagnosis 06/02/2020 04:00:00 PM [facility] N87.1 Moderate cervical dysplasia MODERATE CERVICAL DYSPLASI A Diagnosis 05/17/2020 11:39:00 AM [facility] Z3A.01 Less than 8 weeks gestation of LESS THAN 8 WEEKS GESTATION OF Diagnosis 05/17/2020 11:39:[address] [facility] O99.891 OTH DISEASES AND CONDITIONS COMPLICATING OTH DISEASES AND CONDITIONS COMPLICATING Diagnosis 05/17/2020 11:39:00 AM [facility] Z34.81 Encounter for supervision of other javan l , first trimester ENCOUNTER FOR SUPRVSN OF NORMAL , FIRST TRIMESTER Diagnosis 05/17/2020 11:39:00 AM [facility] Surgeries/Procedures Procedure Description Date Indications Data Source(s) OFFICE OUTPATIENT VISIT 25 MINUTES 03/12/2021 12:00:00 AM ED [facility]) Care Only 02/19/2021 12:00:00 AM ED [facility] ([facility]) Introduction of Anesthetic Agent into Spinal Canal, Pe rcutaneous Approach Introduction of Anesthetic Agent into Spinal Canal, Percutaneous Approac 01/06/2021 12:00:00 AM [facility] Delivery of Products of Conception, External Approach Delivery of Products of Conception, External Approach 01/06/2021 12:00:00 AM [facility] Drainage of Amniotic Fluid, Therapeutic from Products of Conception, Via Natural or Artificial Opening Drainage of Amniotic Fluid, Therapeutic from Products of Conception, Via Natural or Artificial Opening 01/06/2021 12:00:00 AM [facility] Introduction of Electrolytic and Water B alance Substance into Peripheral Vein, Percutaneous Approach Introduction of Electrolytic and Water B alance Substance into Peripheral Vein, Percutaneous Approach 01/06/2021 12:00:00 AM [facility] Monitoring of Products of Conception, Ca rdiac Electrical Activity, External Approach Monitoring of Products of Conception, Ca rdiac Electrical Activity, External Approach 01/06/2021 12:00:00 AM [facility] Non-Stress Test 12/29/2020 12:00:00 AM [facility] ([facility]) Antepartum F/U visit 12/22/2020 12:00:00 AM [facility] ([facility]) OFFICE OUTPATIENT VISIT 10 MINUTES OFFICE/OUTPATIENT VISIT E ST 06/02/2020 12:00:00 AM [facility] IADNA NEISSERIA GONORRHOEAE AMPLIFIED PROBE TQ N.GONORRHOEAE DNA AMP PROB 05/17/2020 12:00:00 [facility] CHLAMYD[facility] TRACHOMATIS AMPLIFIED PROBE TQ CHYLMD TRACH DNA AMP PROBE 05/17/2020 12:00:00 AM [facility] CYTP CERV/VAG AUTO THIN LAYER PREP MNL SCREEN CYTOPATH C/V T HIN LAYER 05/17/2020 12:00:00 AM [facility] IADNA TRICHOMONAS VAGINALIS DIRECT PROBE TQ TRICHOMONAS VAGI N DIR PROBE 05/17/2020 12:00:00 AM [facility] GARDNERELLA VAGINALIS DIRECT PROBE TQ MENDOZA VAG DNA DIR PROBE 05/17/2020 12:00:00 AM [facility] IADNA YOLETTE SPECIES DIRECT PROBE TQ YOLETTE DNA DIR PROBE 05/17/2020 12:00:00 AM [facility] ANTIBODY TOXOPLASMA TOXOPLASMA ANTIBODY 05/17/2020 12:00:00 AM [facility] 17686 OPIATES 1 OR MORE 05/17/2020 12:00:00 AM [facility] LEAD ASSAY OF LEAD 05/17/2020 12:00:00 AM [facility] ANTIBODY VARICELLA-ZOSTER VARICELLA-ZOSTER ANTIBODY 05/17/2020 1 2:00:00 AM [facility] THYROID STIMULATING HORMONE TSH ASSAY THYROID STIM HORMONE 1 12:00:00 AM [facility] ANTIBODY TOXOPLASMA IGM TOXOPLASMA ANTIBODY IGM 05/17/2020 12:00:00 AM [facility] 64558 DRUG TEST PRSMV CHEM ANLYZR 05/17/2020 12:00:00 AM [facility] IAAD EIA HEPATITIS B SURFACE ANTIGEN HEPATITIS B SURFACE AG IA 05/17/2020 12:00:00 AM [facility] ANTIBODY TREPONEMA PALLIDUM TREPONEMA PALLIDUM 05/17/2020 12:00:00 AM [facility] IAAD EIA HIV-1 AG W/HIV-1&HIV-2 ANTBDY SINGLE HIV-1 AG W/HIV -1 & HIV-2 AB 05/17/2020 12:00:00 AM [facility] ANTIBODY RUBELLA RUBELLA ANTIBODY 05/17/2020 12:00:00 AM [facility] HEPATITIS C ANTIBODY HEPATITIS C AB TEST 05/17/2020 12:00:00 AM [facility] COLLECTION VENOUS BLOOD VENIPUNCTURE ROUTINE VENIPUNCTURE 12:00:00 AM [facility] BLOOD COUNT COMPLETE AUTO&AUTO DIFRNTL WBC COUNT COMPLETE CB C W/AUTO DIFF WBC 05/17/2020 12:00:00 AM [facility] 13501 DRUG SCREEN QUANTALCOHOLS 05/17/2020 12:00:00 AM [facility] CFTR GENE ANALYSIS COMMON VARIANTS CFTR GENE COM VARIANTS 12:00:00 AM [facility] IADNA NEISSERIA GONORRHOEAE AMPLIFIED PROBE TQ 020 12:00:00 AM [facility] IADNA CHLAMYDIA TRACHOMATIS AMPLIFIED PROBE TQ 020 12:00:00 AM [facility] IADNA TRICHOMONAS VAGINALIS DIRECT PROBE TQ 05/17/2020 12:00:00 AM EDT [facility] IADNA GARDNERELLA VAGINALIS DIRECT PROBE TQ 05/17/2020 12:00:00 AM EDT [facility] IADNA YOLETTE SPECIES DIRECT PROBE TQ 05/17/2020 [facility] ANALYSIS COMMON VARIANTS 05/17/2020 12:00:00 AM EDT [facility] ANTIBODY TOXOPLASMA 05/17/2020 12:00:00 AM EDT [facility] LEAD 05/17/2020 12:00:00 AM EDT [facility] ANTIBODY VARICELLA-ZOSTER 05/17/2020 12:00:00 AM EDT [facility] ANTIBODY TOXOPLASMA IGM 05/17/2020 [facility] HEPATITIS B SURFACE ANTIGEN 05/17/2020 [facility] 05/17/2020 12:00:00 AM EDT [facility] ANTIBODY TREPONEMA PALLIDUM 05/17/2020 12:00:00 AM EDT [facility] IAAD EIA HIV-1 AG W/HIV-1&HIV-2 ANTBDY SINGLE 05/17/20 20 [facility] RUBELLA 05/17/2020 12:00:00 AM EDT [facility] HEPATITIS C ANTIBODY 05/17/2020 [facility] Results ID Date Data Source [id number] 03/12/2021 01:23:00 PM EDT [facility] ([facility]) Name Value Range Interpretation Code Description Data Dolores rce(s) Supporting Document(s) Choriogonadotropin.beta subunit ( test) [Pres ence] in Urine Laboratory test result [facility] ([facility]) ID Date Data Source [id number] 02/19/2021 03:17:00 PM EDT [facility] ([facility]) Name Value Range Interpretation Code Description Data Dolores rce(s) Supporting Document(s) Chlamydia trachomatis,[place] Laboratory test result [facility] ([facility]) {SOURCE: Neisseria gonorrhoeae,[place] Laboratory test result [facility] ([facility]) {SOURCE: ID Date Data Source [id number] 02/22/2021 07:02:00 AM EDT [facility] Name Value Range Interpretation Code Description Data Dolores rce(s) Supporting Document(s) Chlamydia trachomatis rRNA [Presence] in Unspecified specimen by Probe and target amplification method Negative Negative [facility] Neisseria gonorrhoeae rRNA [Presence] in Unspecified specimen by Probe and target amplification method Negative Negative [facility] ID Date Data Source [id number] 02/19/2021 03:17:00 PM EDT [facility] ([facility]) Name Value Range Interpretation Code Description Data Dolores rce(s) Supporting Document(s) Cytology report of Cervical or vaginal smear or scrapi ng Cyto stain.thin prep Laboratory test result [facility]) ID Date Data Source [id number] 01/07/2021 08:16:00 AM EDT [facility] Name Value Range Interpretation Code Description Data Dolores rce(s) Supporting Document(s) CBC W/AUTOMATED DIFF [facility] COMPLETE BLOOD COUNT Leukocytes [#/volume] in Blood by Automated count 14.7 10^3/uL 4.2 - 11.0 H [facility] Erythrocytes [#/volume] in Blood by Automated count 3.18 10^6/uL 4. 20 - 5.40 L [facility] Hemoglobin [Mass/volume] in Blood 9.0 g/dL 12.0 - 16.0 L [facility] Hematocrit [Volume Fraction] of Blood by Automated count 27.3 % 3 7.0 - 47.0 L [facility] Erythrocyte mean corpuscular volume [Entitic volume] by Auto mated count 85.8 fL 81.0 - 101 [facility] Erythrocyte mean corpuscular hemoglobin [Entitic mass] by Automated count 28.3 pg 27.0 - 34.0 [facility] Erythrocyte mean corpuscular hemoglobin concentration [Mass/volume] by Automated count 33.0 g/dL 31.0 - 36.0 [facility] Erythrocyte distribution width [Ratio] by Automated count 14.2 % 11.5 - 14.5 [facility] Platelets [#/volume] in Blood by Automated count 217 10^3/uL 150 - 45 0 [facility] Platelet mean volume [Entitic volume] in Blood by Automated count 11.0 fL 7.4 - 10.4 H [facility] Neutrophils/100 leukocytes in Blood by Automated count 70.9 % 37. 0 - 80.0 [facility] Lymphocytes/100 leukocytes in Blood by Manual count 17.8 % 25.0 - 40.0 L [facility] Monocytes/100 leukocytes in Blood by Automated count 7.4 % 3.0 - 8.0 [facility] Eosinophils/100 leukocytes in Blood by Automated count 0.8 % 0.0 - 7.0 [facility] 0.4 %IG 2.7 % 0.0 - 0.[address] [facility] %NRBC 0.0 % 0.0 - 0.0 [facility] Neutrophils [#/volume] in Blood by Automated count 10.42 10^3/uL 2. 00 - 6.90 H [facility] Lymphocytes [#/volume] in Blood by Automated count 2.61 10^3/uL 0.60 - 3.40 [facility] Monocytes [#/volume] in Blood by Automated count 1.09 10^3/uL 0.00 - 0.90 H [facility] Eosinophils [#/volume] in Blood by Automated count 0.12 10^3/uL 0.00 - 0.70 [facility] Basophils [#/volume] in Blood by Automated count 0.06 10^3/uL 0.00 - 0.20 [facility] #IG 0.39 10^3/uL 0.00 - 0.[address] [facility] #NRBC 0.00 10^3/uL 0.00 - 0.00 [facility] ospital MANUAL DIFF SEE BELOW [facility] Segmented neutrophils/100 leukocytes in Blood by Manual count 73 % 37 - 80 [facility] BAND 0 % 0 - 5 [facility] %LYMPH 20 % 25 - [address] [facility] %MONO 7 % 3 - 8 [facility] %EOS 0 % 0 - 7 [facility] [address] RBC [address]OR[address] NOT IND[address] [facility] ID Date Data Source [id number] 01/06/2021 11:58:00 AM EDT [facility] Name Value Range Interpretation Code Description Data Dolores rce(s) Supporting Document(s) BASIC METABOLIC PANEL [facility] BASIC METABOLIC PANEL Sodium [Moles/volume] in Serum or Plasma 137 mEq/L 134 - 153 [facility] Potassium [Moles/volume] in Serum or Plasma 4.1 mEq/L 3.6 - 5.0 [facility] Chloride [Moles/volume] in Serum or Plasma 100 mEq/L 98 - 107 [facility] Carbon dioxide, total [Moles/volume] in Serum or Plasma 20 MEQ/L 22 - 30 L [facility] Glucose [Mass/volume] in Serum or Plasma 95 MG/DL 70 - 99 [facility] BUN 6 MG/DL 7 - 21 L [facility] al Creatinine [Mass/volume] in Serum or Plasma 0.6 MG/DL 0.7 - 1.5 L [facility] BUN/CREAT 10 8 - 27 [facility] al Calcium [Mass/volume] in Serum or Plasma 9.5 MG/DL 8.4 - 10.2 [facility] Anion gap 3 in Serum or Plasma 17.0 mmol/L 8.0 - 16.0 H [facility]GE 25 [facility] GFR >60 mL/min [facility] NON-AA GFR >60 mL/min [facility] ital Male GFR Inter prentation 20-49 yrs [...] >32 mL/min Normal ID Date Data Source [id number] 01/06/2021 11:40:00 AM EDT [facility] Name Value Range Interpretation Code Description Data Dolores rce(s) Supporting Document(s) CBC W/AUTOMATED DIFF [facility] COMPLETE BLOOD COUNT Leukocytes [#/volume] in Blood by Automated count 13.8 10^3/uL 4.2 - 11.0 H [facility] Erythrocytes [#/volume] in Blood by Automated count 3.72 10^6/uL 4. 20 - 5.40 L [facility] Hemoglobin [Mass/volume] in Blood 10.5 g/dL 12.0 - 16.0 L [facility] Hematocrit [Volume Fraction] of Blood by Automated count 31.6 % 3 7.0 - 47.0 L [facility] Erythrocyte mean corpuscular volume [Entitic volume] by Auto mated count 84.9 fL 81.0 - 101 [facility] Erythrocyte mean corpuscular hemoglobin [Entitic mass] by Automated count 28.2 pg 27.0 - 34.0 [facility] Erythrocyte mean corpuscular hemoglobin concentration [Mass/volume] by Automated count 33.2 g/dL 31.0 - 36.0 [facility] Erythrocyte distribution width [Ratio] by Automated count 14.1 % 11.5 - 14.5 [facility] Platelets [#/volume] in Blood by Automated count 254 10^3/uL 150 - 45 0 [facility] Platelet mean volume [Entitic volume] in Blood by Automated count 10.8 fL 7.4 - 10.4 H [facility] Neutrophils/100 leukocytes in Blood by Automated count 75.2 % 37. 0 - 80.0 [facility] Lymphocytes/100 leukocytes in Blood by Manual count 14.0 % 25.0 - 40.0 L [facility] Monocytes/100 leukocytes in Blood by Automated count 7.5 % 3.0 - 8.0 [facility] Eosinophils/100 leukocytes in Blood by Automated count 0.7 % 0.0 - 7.0 [facility] Basophils/100 leukocytes in Blood by Automated count 0.6 % 0.0 - 2.5 [facility] %IG 2.0 % 0.0 - 0.0 [facility] %NRBC 0.0 % 0.0 - 0.0 [facility] al Neutrophils [#/volume] in Blood by Automated count 10.39 10^3/uL 2. 00 - 6.90 H [facility] Lymphocytes [#/volume] in Blood by Automated count 1.93 10^3/uL 0.60 - 3.40 [facility] Monocytes [#/volume] in Blood by Automated count 1.03 10^3/uL 0.00 - 0.90 H [facility] Eosinophils [#/volume] in Blood by Automated count 0.09 10^3/uL 0.00 - 0.70 [facility] Basophils [#/volume] in Blood by Automated count 0.08 10^3/uL 0.00 - 0.20 [facility] #IG 0.28 10^3/uL 0.00 - 0.10 H [facility] ospital #NRBC 0.00 10^3/uL 0.00 - 0.00 [facility]spital MANUAL DIFF NOT INDICATED [facility] RBC MORPH NOT INDICATED [facility] spital ID Date Data Source [id number] 01/06/2021 11:40:00 AM EDT [facility] Name Value Range Interpretation Code Description Data Dolores rce(s) Supporting Document(s) Prothrombin time (PT) 12.7 SECONDS 11.0 - 15.5 [facility] INR in Platelet poor plasma by Coagulation assay 0.94 0.93 - 1. 23 [facility] aPTT in Blood by Coagulation assay 27.9 SECONDS 24.8 - 36.7 [facility] \\BLDo\\INR INTERPRETATION\\BLDx\\ Therapeutic range for Coumadin and related oral anticoagulants. - International Normalized Ratio (INR): 2.0 - 3.0 for Venous Thrombosis, Pulmonary Embolus, Tissue heart valves, Acute NC Atrial Fibrillation, Valvular heart disease and recurrent Systemic Embolism. - International Normalized Ratio (INR): 2.5 - 3.5 for Mechanical Prosthetic valve. ID Date Data Source [id number] 01/10/2021 07:42:00 AM EDT [facility] Name Value Range Interpretation Code Description Data Dolores rce(s) Supporting Document(s) CULTURE URINE [facility] spital _CULTURE URINE_$$[id number]$$[id number]$$[id number]$$267360$$225020$$699856$$333047$$367643$$815025$$ 632520$$575159$$329821$$751718$$630835$$549609$$706457$$416473$$291260$$931692$$ 118424$$043757$$299857$$205763$$593361$$612646$$213135$$861994 -- Continued on next page --Patient: CYN GARRISON M Order: [id number] Page 2Culture: CULTURE URINE Status: Final ==== -- Continued on next page --Patient: CYN GARRISON M Order: [id number] Page 2Culture: CULTURE URINE Status: Prelim =====$$[id number] DATE/TIME: 01/10/2021 07:06Culture: CULTURE URINE Status: FinalUrine Culture,Comprehensive: P1No growth in 36 - 48 hours. Previous result entered on 01/08/2021 05:36 ET Specimen has been received and testing has been initiated.P1 [facility] performed [facility]: [id number] [address] [place] [address] [phone] [facility] [id number] Director : Jose Martin Aguilar MD NPI #:Section [employer] : 01/08/21.0657.XMT.SENT REF 01/10/21.0742.XMT.SENT REF 01/14/21.0725.XMT.SENT REF ID Date Data Source [id number] 01/06/2021 11:08:00 AM EDT [facility] Name Value Range Interpretation Code Description Data Dolores rce(s) Supporting Document(s) URINALYSIS [facility] UR[facility]ALYSIS SOURCE [facility] COL[facility] yellow NORMAL: Yellow [facility] CLARITY clear NORMAL: Clear [facility] Specific gravity of Urine by Test strip 1.010 1.001 - 1.030 [facility] pH 7 5 - 9 [facility] al Glucose [Mass/volume] in Urine by Test strip NORM NORMAL: Negat [facility] Bilirubin.total [Presence] in Urine by Test strip NEG NORMAL: Negative [facility] Ketones [Presence] in Urine by Test strip NEG NORMAL: Negative [facility] Protein [Mass/volume] in Urine by Test strip NEG NORMAL: Negat [facility] Nitrite [Presence] in Urine by Test strip NEG NORMAL: Negative [facility] BLOOD 10 NORMAL: Negative [facility] Leukocyte esterase [Presence] in Urine by Test strip 500 JAVAN L: Negative [facility] Urobilinogen [Mass/volume] in Urine by Test strip NOR less kavon n 1.0 mg/dL [facility] MICROSCOPIC See Below [facility] ital WBC 5 - 7 NORMAL: NONE SEEN A [facility] EPITHELIAL MODERATE NORMAL: NONE SEEN A [facility] Bacteria [Presence] in Urine sediment by Light microscopy 1+ SMALL NORMAL: NONE SEEN [facility] ID Date Data Source [id number] 01/02/2021 11:00:00 PM EDT [facility] ([facility]) Name Value Range Interpretation Code Description Data Dolores rce(s) Supporting Document(s) Culture Urine Laboratory test result [facility] ([facility]) {SOURCE: Clean Catch~NURSE COLLECTED? Y ID Date Data Source [id number] 01/02/2021 11:00:00 PM EDT [facility] ([facility]) Name Value Range Interpretation Code Description Data Dolores rce(s) Supporting Document(s) Urinalysis Laboratory test result [facility] ([facility]) {SOURCE: Clean Catch~NURSE COLLECTED? Y Source Laboratory test result [facility] ([facility]) {SOURCE: Clean Catch~NURSE COLLECTED? Y Color Laboratory test result [facility] ([facility]) {SOURCE: Clean Catch~NURSE COLLECTED? Y Clarity Laboratory test result [facility] ([facility]) {SOURCE: Clean Catch~NURSE COLLECTED? Y Spec [place] 1.015 1.001-1.030 [facility] ([facility]) {SOURCE: Clean Catch~NURSE COLLECTED? Y Glucose Laboratory test result [facility] ([facility]) {SOURCE: Clean Catch~NURSE COLLECTED? Y pH 6.5 5-9 [facility] ([facility]) {SOURCE: Clean Catch~NURSE COLLECTED? Y Bilirubin Laboratory test result [facility] ([facility]) {SOURCE: Clean Catch~NURSE COLLECTED? Y Ketone Laboratory test result [facility] ([facility]) {SOURCE: Clean Catch~NURSE COLLECTED? Y Protein Laboratory test result [facility] ([facility]) {SOURCE: Clean Catch~NURSE COLLECTED? Y Nitrite Laboratory test result [facility] ([facility]) {SOURCE: Clean Catch~NURSE COLLECTED? Y Blood Laboratory test result [facility] ([facility]) {SOURCE: Clean Catch~NURSE COLLECTED? Y Leuk Est 500 Abnormal (applies to non-numeric res ults) [facility] ([facility]) {SOURCE: Clean Catch~NURSE COLLECTED? Y Urobilinogen Laboratory test result [facility] ([facility]) {SOURCE: Clean Catch~NURSE COLLECTED? Y Microscopic Laboratory test result [facility] ([facility]) {SOURCE: Clean Catch~NURSE COLLECTED? Y WBC Laboratory test result Abnormal (applies to non -numeric results) [facility] ([facility]) {SOURCE: Clean Catch~NURSE COLLECTED? Y RBC Laboratory test result [facility] ([facility]) {SOURCE: Clean Catch~NURSE COLLECTED? Y Epithelial Laboratory test result Abnormal (applies to non -numeric results) [facility] ([facility]) {SOURCE: Clean Catch~NURSE COLLECTED? Y Bacteria Laboratory test result [facility] ([facility]) {SOURCE: Clean Catch~NURSE COLLECTED? Y Mucous Laboratory test result Abnormal (applies to non -numeric results) [facility] ([facility]) {SOURCE: Clean Catch~NURSE COLLECTED? Y ID Date Data Source [id number] 01/06/2021 01:32:[address] [facility] Name Value Range Interpretation Code Description Data Dolores rce(s) Supporting Document(s) CULTURE URINE [facility] _CULTURE URINE_$$[id number]$$[id number]$$[id number]$$622130$$121374$$467567$$263505$$238285$$575088$$ 344329$$075992$$333763$$200555$$394898$$279159$$862899$$245053$$889386$$860324$$ 567516$$436214$$387790$$115770$$157628$$032048$$216984$$584264 -- Continued on next page --Patient: CYN Nice Order: [id number] Page 2Culture: CULTURE URINE Status: Final ==== -- Continued on next page --Patient: CYN Nice Order: [id number] Page 2Culture: CULTURE URINE Status: Prelim =====$$[id number] DATE/TIME: 01/06/2021 13:06Culture: CULTURE URINE Status: FinalIsolate 1 Acinetobacter baumannii Flag: A . . . . . . .925,000-50,000 colony forming units per mL Previous result entered on 01/05/2021 04:57 ET Gram negative rodsUrine Culture,Comprehensive: [id number] baumannii Flag: APatient: CYN Nice Order: [id number] Page 3Culture: CULTURE URINE Status: Final ====ISOLATE [...] S S . . . . . .32426-6Gbetiidqp S S . . . . . .6652- 2Piperacillin S S . . . . . .408-5Tetracycline S S . . . . . .496-0Tobramycin S S . . . . . .508-2Trimethoprim/Sulfa S S . . . . . .516-5P1 [facility]: [facility] #: [id number] [address] [place] [address] Avenue [phone] [facility] [id number] Director : Jose Martin Aguilar MD NPI #:Section [employer] : 01/05/21.0655.XMT.SENT REF 01/06/21.1332.XMT.SENT REF ID Date Data Source [id number] 01/02/2021 11:34:00 PM EDT [facility] Name Value Range Interpretation Code Description Data Dolores rce(s) Supporting Document(s) [facility] COLOR yellow NORMAL: Yellow [facility] CLARITY clear NORMAL: Clear [facility] Specific gravity of Urine by Test strip 1.015 1.001 - 1.030 [facility] pH 6.5 5 - 9 [facility] al Glucose [Mass/volume] in Urine by Test strip NORM NORMAL: Negat [facility] Bilirubin.total [Presence] in Urine by Test strip NEG NORMAL: Negative [facility] Ketones [Presence] in Urine by Test strip NEG NORMAL: Negative [facility] Protein [Mass/volume] in Urine by Test strip NEG NORMAL: Negat [facility] Nitrite [Presence] in Urine by Test strip NEG NORMAL: Negative [facility] BLOOD NEG NORMAL: Negative [facility] Leukocyte esterase [Presence] in Urine by Test strip 500 JAVAN L: Negative A [facility] Urobilinogen [Mass/volume] in Urine by Test strip NOR less kavon n 1.0 mg/dL [facility] MICROSCOPIC See Below [facility] ital WBC 10 - 15 NORMAL: NONE SEEN A [facility] Erythrocytes [#/volume] in Urine by Test strip 0 - 1 NORMAL: NON E SEEN [facility] EPITHELIAL MODERATE NORMAL: NONE SEEN A [facility] Bacteria [Presence] in Urine sediment by Light microscopy 1+ SMALL NORMAL: NONE SEEN [facility] Mucus [Presence] in Urine sediment by Light microscopy 2+ NOR MAL: NONE SEEN A [facility] ID Date Data Source [id number] 12/29/2020 05:40:00 PM EDT [facility] ([facility]) Name Value Range Interpretation Code Description Data Dolores rce(s) Supporting Document(s) Urinalysis Laboratory test [facility] {SOURCE: Random Void~NURSE COLLECTED? N Source Laboratory test result [facility]) {SOURCE: Random Void~NURSE COLLECTED? N Color Laboratory test result [facility] ([facility]) {SOURCE: Random Void~NURSE COLLECTED? N Spec [place] 1.015 1.001-1.030 [facility] ([facility]) {SOURCE: Random Void~NURSE COLLECTED? N Clarity Laboratory test result [facility] ([facility]) {SOURCE: Random Void~NURSE COLLECTED? N pH 8 5-9 [facility] ([facility]) {SOURCE: Random Void~NURSE COLLECTED? N Glucose Laboratory test result [facility] ([facility]) {SOURCE: Random Void~NURSE COLLECTED? N Bilirubin Laboratory test result [facility] ([facility]) {SOURCE: Random Void~NURSE COLLECTED? N Ketone Laboratory test result [facility] ([facility]) {SOURCE: Random Void~NURSE COLLECTED? N Protein Laboratory test result [facility] ([facility]) {SOURCE: Random Void~NURSE COLLECTED? N Nitrite Laboratory test result [facility] ([facility]) {SOURCE: Random Void~NURSE COLLECTED? N Blood Laboratory test result [facility] ([facility]) {SOURCE: Random Void~NURSE COLLECTED? N Urobilinogen Laboratory test result [facility] ([facility]) {SOURCE: Random Void~NURSE COLLECTED? N Leuk Est 500 Abnormal (applies to non-numeric res ults) [facility] ([facility]) {SOURCE: Random Void~NURSE COLLECTED? N Microscopic Laboratory test result [facility] ([facility]) {SOURCE: Random Void~NURSE COLLECTED? N WBC Laboratory test result Abnormal (applies to non -numeric results) [facility] ([facility]) {SOURCE: Random Void~NURSE COLLECTED? N RBC Laboratory test result [facility] ([facility]) {SOURCE: Random Void~NURSE COLLECTED? N Epithelial Laboratory test result Abnormal (applies to non -numeric results) [facility] ([facility]) {SOURCE: Random Void~NURSE COLLECTED? N Amorph Sed Laboratory test result [facility] ([facility]) {SOURCE: Random Void~NURSE COLLECTED? N Bacteria Laboratory test result [facility] ([facility]) {SOURCE: Random Void~NURSE COLLECTED? N ID Date Data Source [id number] 12/29/2020 05:40:00 PM EDT [facility] ([facility]) Name Value Range Interpretation Code Description Data Dolores rce(s) Supporting Document(s) Culture Urine Laboratory test result [facility] ([facility]) {SOURCE: Random Void~NURSE COLLECTED? N ID Date Data Source [id number] 01/03/2021 11:15:00 AM EDT [facility] Name Value Range Interpretation Code Description Data Dolores rce(s) Supporting Document(s) CULTURE URINE [facility] _CULTURE URINE_$$[id number]$$[id number]$$[id number]$$349519$$218915$$791149$$603400$$859954$$446202$$ 940050$$576440$$122583$$724958$$743790$$461204$$158675$$452789$$357664$$446293$$ 406333$$890599$$368122$$832940$$748852$$927221$$045765$$242429 -- Continued on next page --Patient: CYN Nice Order: [id number] Page 2Culture: CULTURE URINE Status: Final ==== -- Continued on next page --Patient: CYN Nice Order: [id number] Page 2Culture: CULTURE URINE Status: Prelim ===== -- Continued on next page --Patient: CYN Nice Order: [id number] Page 2Culture: CULTURE URINE Status: Prelim =====$$[id number]$$[id number] DATE/TIME: 01/03/2021 11:06Culture: CULTURE URINE Status: FinalIsolate 1 Acinetobacter baumannii Flag: A . . . . . . .9Greater than 100,000 colony forming units per mL Previous result entered on 01/02/2021 13:41 ET Acinetobacter baumanniiSusceptibility results being verified. Final report to follow. Previous result entered on 01/02/2021 07:53 ET Gram negative rodsUrine Culture,Comprehensive: [id number] baumannii Flag: APatient: CYN Nice Order: [id number] Page 3Culture: CULTURE URINE Status: Final ====ISOLATE [...] S S . . . . . .87956-7Xxolmivfn S S . . . . . .6652-2Piperacillin S S . . . . . .408-5Tetracycline S S . . . . . .496-0Tobramycin S S . . . . . .508- 2Trimethoprim/Sulfa S S . . . . . .516-5P1 Test performed by: [facility] Bhakti connolly [facility] #: [id number] [address] [place] [address] [phone] [facility] [id number] Director : Jose Martin Aguilar MD NPI #:Section [employer] : 01/02/21.0927.XMT.SENT REF 01/02/21.1419.XMT.SENT REF 01/03/21.0646.XMT.SENT REF 01/03/21.1115.XMT.SENT REF ID Date Data Source [id number] 12/29/2020 05:59:00 PM EDT [facility] Name Value Range Interpretation Code Description Data Dolores rce(s) Supporting Document(s) URINALYSIS [facility] jae UR[facility]ALYSIS [facility] yellow NORMAL: Yellow [facility] CLARITY clear NORMAL: Clear [facility] Specific gravity of Urine by Test strip 1.015 1.001 - 1.030 [facility] pH 8 5 - 9 [facility] Glucose [Mass/volume] in Urine by Test strip NORM NORMAL: Negat [facility] Bilirubin.total [Presence] in Urine by Test strip NEG NORMAL: Negative [facility] Ketones [Presence] in Urine by Test strip NEG NORMAL: Negative [facility] Protein [Mass/volume] in Urine by Test strip NEG NORMAL: Negat [facility] Nitrite [Presence] in Urine by Test strip NEG NORMAL: Negative [facility] BLOOD NEG NORMAL: Negative [facility] Leukocyte esterase [Presence] in Urine by Test strip 500 JAVAN L: Negative A [facility] Urobilinogen [Mass/volume] in Urine by Test strip NOR less kavon n 1.0 mg/dL [facility] MICROSCOPIC See Below [facility] ital WBC 5 - 7 NORMAL: NONE SEEN A [facility] Erythrocytes [#/volume] in Urine by Test strip 0 - 1 NORMAL: NON E SEEN [facility] EPITHELIAL MODERATE NORMAL: NONE SEEN A [facility] Bacteria [Presence] in Urine sediment by Light microscopy Tr medina NORMAL: NONE SEEN [facility] Amorphous sediment [Presence] in Urine sediment by Light rosi roscopy 2+ NORMAL: NONE SEEN [facility] ID Date Data Source [id number] 12/29/2020 02:47:00 PM EDT [facility] ([facility]) Name Value Range Interpretation Code Description Data Dolores rce(s) Supporting Document(s) Z#Other Observations Laboratory test result [facility] ([facility]) ID Date Data Source [id number] 12/29/2020 02:46:00 PM EDT [facility] ([facility]) Name Value Range Interpretation Code Description Data Dolores rce(s) Supporting Document(s) Source: Laboratory test result [facility] [facility] {SOURCE: Random Void Yolette species Laboratory test result [facility] ([facility]) {SOURCE: Random Void Gardnerella vaginalis Laboratory test result [facility] ([facility]) {SOURCE: Random Void Trichomonas vaginalis Laboratory test result [facility] ([facility]) {SOURCE: Random Void ID Date Data Source [id number] 12/31/2020 09:30:00 PM EDT [facility] Name Value Range Interpretation Code Description Data Dolores rce(s) Supporting Document(s) SOURCE: Random Void [facility] Yolette sp rRNA [Presence] in Vaginal fluid by DNA probe Negative N egative [facility] Gardnerella vaginalis rRNA [Presence] in Genital specimen by DNA probe Negative Negative [facility] Trichomonas vaginalis rRNA [Presence] in Genital specimen by DNA probe Negative Negative [facility] ID Date Data Source [id number] 12/29/2020 02:25:00 PM EDT [facility] [address] [place] [address] PHONE: [phone] FAX: [phone] Name .................. : CYN Nice Acct Number.................. : [id number] ROOM. ................. : MR Number ................... : [id number] Stay type ............. : O/P Discharge Date......... ... : 12/28/20 Admit Date ......... : 12/28/20 Admit Phys .................... : NANETTE FLORES Date of ....... : 1995 Family Phys ................... : NON STAFF Phone .................. : [phone] Age ................................ : 25 Film# .................. .:[id number] Sex ................................. : F Unsigned transcriptions are preliminary reports and do not represent a medical or legal document OB BIOPHYSICAL PROFILE [id number] COMPLETE:12/28/20 15:29 KNB [id number] Reason for Exam: DECREASED MOVEMENT OB ULTRASOUND [...] By Arsalan Abdi M.D. , 12/29/20 14:25, EMANUEL Transcribe Initials: DELLA , Transcribe Date: 12/29/20 05:57, Dictation Date: Copy for: [facility] REC Page 1 of 1 Name Value Range Interpretation Code Description Data Dolores rce(s) Supporting Document(s) ID Date Data Source [id number] 12/28/2020 02:55:00 PM EDT [facility] ([facility]) Name Value Range Interpretation Code Description Data Dolores rce(s) Supporting Document(s) Hepatitis B virus surface Ag [Presence] in Serum or Pl asma by Immunoassay Laboratory test result [facility]) {SOURCE: Random Void~NURSE COLLECTED? N Is patient fasting? N {SPECIMEN TYPE: CLEAN CATCH Rubella virus IgG Ab [Units/volume] in Serum 175.900 IU/ml [facility] ([facility]) {SOURCE: Random Void~NURSE COLLECTED? N Is patient fasting? N {SPECIMEN TYPE: CLEAN CATCH Calcidiol [Mass/volume] in Serum or Plasma 23 ng/mL [facility] ([facility]) {SOURCE: Random Void~NURSE COLLECTED? N Is patient fasting? N {SPECIMEN TYPE: CLEAN CATCH Treponema pallidum Ab [Presence] in Serum Laboratory test result [facility] ([facility]) {SOURCE: Random Void~NURSE COLLECTED? N Is patient fasting? N {SPECIMEN TYPE: CLEAN CATCH Thyroxine (T4) free [Mass/volume] in Serum or Plasma 0.91 ng/dL 0.93-1.70 Below low normal [facility] ([facility]) {SOURCE: Random Void~NURSE COLLECTED? N Is patient fasting? N {SPECIMEN TYPE: CLEAN CATCH Triiodothyronine (T3) Free [Mass/volume] in Serum or Plasma 2.4 pg/ mL 2.0-4.4 [facility] ([facility]) {SOURCE: Random Void~NURSE COLLECTED? N Is patient fasting? N {SPECIMEN TYPE: CLEAN CATCH Thyrotropin [Units/volume] in Serum or Plasma 1.27 uIU/mL 0.47-5.01 [facility] ([facility]) {SOURCE: Random Void~NURSE COLLECTED? N Is patient fasting? N {SPECIMEN TYPE: CLEAN CATCH Thyroperoxidase Ab [Units/volume] in Serum or Plasma Laborat ory test result 0-34 [facility] {SOURCE: Random Void~NURSE COLLECTED? N Is patient fasting? N {SPECIMEN TYPE: CLEAN CATCH Thyroxine (T4) [Mass/volume] in Serum or Plasma 10.1 ug/dL 4.5-12.5 [facility] ([facility]) {SOURCE: Random Void~NURSE COLLECTED? N Is patient fasting? N {SPECIMEN TYPE: CLEAN CATCH ID Date Data Source [id number] 12/28/2020 02:55:00 PM EDT [facility] ([facility]) Name Value Range Interpretation Code Description Data Dolores rce(s) Supporting Document(s) [employer] Laboratory test result [facility] ([facility]) {SOURCE: Random Void~NURSE COLLECTED? N Is patient fasting? N {SPECIMEN TYPE: CLEAN CATCH RH Type Laboratory test result [facility] ([facility]) {SOURCE: Random Void~NURSE COLLECTED? N Is patient fasting? N {SPECIMEN TYPE: CLEAN CATCH AB Screen Laboratory test result [facility] ([facility]) {SOURCE: Random Void~NURSE COLLECTED? N Is patient fasting? N {SPECIMEN TYPE: CLEAN CATCH ID Date Data Source [id number] 12/28/2020 02:55:00 PM EDT [facility] ([facility]) Name Value Range Interpretation Code Description Data Dolores rce(s) Supporting Document(s) Urinalysis Laboratory test result [facility] ([facility]) {SOURCE: Random Void~NURSE COLLECTED? N Is patient fasting? N {SPECIMEN TYPE: CLEAN CATCH Color Laboratory test result [facility] ([facility]) {SOURCE: Random Void~NURSE COLLECTED? N Is patient fasting? N {SPECIMEN TYPE: CLEAN CATCH Source Laboratory test result [facility] ([facility]) {SOURCE: Random Void~NURSE COLLECTED? N Is patient fasting? N {SPECIMEN TYPE: CLEAN CATCH Clarity Laboratory test result [facility] ([facility]) {SOURCE: Random Void~NURSE COLLECTED? N Is patient fasting? N {SPECIMEN TYPE: CLEAN CATCH Spec [place] 1.015 1.001-1.030 [facility] ([facility]) {SOURCE: Random Void~NURSE COLLECTED? N Is patient fasting? N {SPECIMEN TYPE: CLEAN CATCH pH 8 5-9 [facility] ([facility]) {SOURCE: Random Void~NURSE COLLECTED? N Is patient fasting? N {SPECIMEN TYPE: CLEAN CATCH Glucose Laboratory test result [facility] ([facility]) {SOURCE: Random Void~NURSE COLLECTED? N Is patient fasting? N {SPECIMEN TYPE: CLEAN CATCH Bilirubin Laboratory test result [facility] ([facility]) {SOURCE: Random Void~NURSE COLLECTED? N Is patient fasting? N {SPECIMEN TYPE: CLEAN CATCH Ketone Laboratory test result [facility] ([facility]) {SOURCE: Random Void~NURSE COLLECTED? N Is patient fasting? N {SPECIMEN TYPE: CLEAN CATCH Protein Laboratory test result [facility] ([facility]) {SOURCE: Random Void~NURSE COLLECTED? N Is patient fasting? N {SPECIMEN TYPE: CLEAN CATCH Nitrite Laboratory test result [facility] ([facility]) {SOURCE: Random Void~NURSE COLLECTED? N Is patient fasting? N {SPECIMEN TYPE: CLEAN CATCH Blood Laboratory test result [facility] ([facility]) {SOURCE: Random Void~NURSE COLLECTED? N Is patient fasting? N {SPECIMEN TYPE: CLEAN CATCH Leuk Est 100 Abnormal (applies to non-numeric res ults) [facility] ([facility]) {SOURCE: Random Void~NURSE COLLECTED? N Is patient fasting? N {SPECIMEN TYPE: CLEAN CATCH Urobilinogen Laboratory test result [facility] ([facility]) {SOURCE: Random Void~NURSE COLLECTED? N Is patient fasting? N {SPECIMEN TYPE: CLEAN CATCH Microscopic Laboratory test result [facility] ([facility]) {SOURCE: Random Void~NURSE COLLECTED? N Is patient fasting? N {SPECIMEN TYPE: CLEAN CATCH WBC Laboratory test result [facility] ([facility]) {SOURCE: Random Void~NURSE COLLECTED? N Is patient fasting? N {SPECIMEN TYPE: CLEAN CATCH Epithelial Laboratory test result [facility] ([facility]) {SOURCE: Random Void~NURSE COLLECTED? N Is patient fasting? N {SPECIMEN TYPE: CLEAN CATCH ID Date Data Source [id number] 12/28/2020 02:55:00 PM EDT [facility] ([facility]) Name Value Range Interpretation Code Description Data Dolores rce(s) Supporting Document(s) Culture Urine Laboratory test result [facility] ([facility]) {SOURCE: Random Void~NURSE COLLECTED? N Is patient fasting? N {SPECIMEN TYPE: CLEAN CATCH ID Date Data Source [id number] 12/28/2020 02:55:00 PM EDT [facility] ([facility]) Name Value Range Interpretation Code Description Data Dolores rce(s) Supporting Document(s) HIV Screen [employer] Laboratory test result [facility] ([facility]) {SOURCE: Random Void~NURSE COLLECTED? N Is patient fasting? N {SPECIMEN TYPE: CLEAN CATCH ID Date Data Source [id number] 12/28/2020 02:55:00 PM EDT [facility] ([facility]) Name Value Range Interpretation Code Description Data Dolores rce(s) Supporting Document(s) Sodium 136 meq/L 134-153 [facility] ([facility]) {SOURCE: Random Void~NURSE COLLECTED? N Is patient fasting? N {SPECIMEN TYPE: CLEAN CATCH Comprehensive [employer] Laboratory test result [facility] ([facility]) {SOURCE: Random Void~NURSE COLLECTED? N Is patient fasting? N {SPECIMEN TYPE: CLEAN CATCH Potassium 3.6 meq/L 3.6-5.0 [facility] ([facility]) {SOURCE: Random Void~NURSE COLLECTED? N Is patient fasting? N {SPECIMEN TYPE: CLEAN CATCH Chloride 105 meq/L 98-107 [facility] ([facility]) {SOURCE: Random Void~NURSE COLLECTED? N Is patient fasting? N {SPECIMEN TYPE: CLEAN CATCH Co2 21 meq/L 22-30 Below low normal [facility] ([facility]) {SOURCE: Random Void~NURSE COLLECTED? N Is patient fasting? N {SPECIMEN TYPE: CLEAN CATCH Glucose 108 mg/dL 70-99 Above high normal [facility] ([facility]) {SOURCE: Random Void~NURSE COLLECTED? N Is patient fasting? N {SPECIMEN TYPE: CLEAN CATCH Creatinine 0.6 mg/dL 0.7-1.5 Below low normal [facility] ( [facility]) {SOURCE: Random Void~NURSE COLLECTED? N Is patient fasting? N {SPECIMEN TYPE: CLEAN CATCH BUN 7 mg/dL 7-21 [facility] ([facility]) {SOURCE: Random Void~NURSE COLLECTED? N Is patient fasting? N {SPECIMEN TYPE: CLEAN CATCH BUN/Creat 12 8-27 [facility] ([facility]) {SOURCE: Random Void~NURSE COLLECTED? N Is patient fasting? N {SPECIMEN TYPE: CLEAN CATCH Total Protein 5.9 g/dL 6.3-8.2 Below low normal [facility] ([facility]) {SOURCE: Random Void~NURSE COLLECTED? N Is patient fasting? N {SPECIMEN TYPE: CLEAN CATCH Albumin 3.4 g/dL 3.9-5.0 Below low normal [facility] ( [facility]) {SOURCE: Random Void~NURSE COLLECTED? N Is patient fasting? N {SPECIMEN TYPE: CLEAN CATCH Globulin 2.5 GM/DL 2.4-3.2 [facility] ([facility]) {SOURCE: Random Void~NURSE COLLECTED? N Is patient fasting? N {SPECIMEN TYPE: CLEAN CATCH A/G Ratio 1.4 0.8-2.0 [facility] ([facility]) {SOURCE: Random Void~NURSE COLLECTED? N Is patient fasting? N {SPECIMEN TYPE: CLEAN CATCH Total Bili Laboratory test result 0.2-1.3 [facility] ([facility]) {SOURCE: Random Void~NURSE COLLECTED? N Is patient fasting? N {SPECIMEN TYPE: CLEAN CATCH Calcium 8.6 mg/dL 8.4-10.2 [facility] ([facility]) {SOURCE: Random Void~NURSE COLLECTED? N Is patient fasting? N {SPECIMEN TYPE: CLEAN CATCH Alkaline Phos 235 U/L 38-126 Above high normal [facility] ([facility]) {SOURCE: Random Void~NURSE COLLECTED? N Is patient fasting? N {SPECIMEN TYPE: CLEAN CATCH Sgot/Ast 15 U/L 5-40 [facility] ([facility]) {SOURCE: Random Void~NURSE COLLECTED? N Is patient fasting? N {SPECIMEN TYPE: CLEAN CATCH Anion Gap 10.0 mmol/L 8.0-16.0 [facility] ([facility]) {SOURCE: Random Void~NURSE COLLECTED? N Is patient fasting? N {SPECIMEN TYPE: CLEAN CATCH SGPT/Alt 6 U/L 7-56 Below low normal [facility] ([facility]) {SOURCE: Random Void~NURSE COLLECTED? N Is patient fasting? N {SPECIMEN TYPE: CLEAN CATCH Non-Aa GFR Laboratory test result [facility] ([facility]) {SOURCE: Random Void~NURSE COLLECTED? N Is patient fasting? N {SPECIMEN TYPE: CLEAN CATCH Age 25 yrs [facility] ([facility]) {SOURCE: Random Void~NURSE COLLECTED? N Is patient fasting? N {SPECIMEN TYPE: CLEAN CATCH Afr Amer GFR Laboratory test result [facility] ([facility]) {SOURCE: Random Void~NURSE COLLECTED? N Is patient fasting? N {SPECIMEN TYPE: CLEAN CATCH ID Date Data Source [id number] 12/28/2020 02:55:00 PM EDT [facility] ([facility]) Name Value Range Interpretation Code Description Data Dolores rce(s) Supporting Document(s) Glucose [Mass/volume] in Serum or Plasma --1 hour post meal 109 mg/dL 70-99 Above high normal [facility] ([facility]) {SOURCE: Random Void~NURSE COLLECTED? N Is patient fasting? N {SPECIMEN TYPE: CLEAN CATCH ID Date Data Source [id number] 12/28/2020 02:55:00 PM EDT [facility] ([facility]) Name Value Range Interpretation Code Description Data Dolores rce(s) Supporting Document(s) CBC W/Automated Diff Laboratory test result [facility] ([facility]) {SOURCE: Random Void~NURSE COLLECTED? N Is patient fasting? N {SPECIMEN TYPE: CLEAN CATCH WBC 10.2 10^3/uL 4.2-11.0 [facility] ([facility]) {SOURCE: Random Void~NURSE COLLECTED? N Is patient fasting? N {SPECIMEN TYPE: CLEAN CATCH RBC 3.41 10^6/uL 4.20-5.40 Below low normal [facility] ([facility]) {SOURCE: Random Void~NURSE COLLECTED? N Is patient fasting? N {SPECIMEN TYPE: CLEAN CATCH Hemoglobin 9.9 g/dL 12.0-16.0 Below low normal [facility] ( [facility]) {SOURCE: Random Void~NURSE COLLECTED? N Is patient fasting? N {SPECIMEN TYPE: CLEAN CATCH Hematocrit 29.8 % 37.0-47.0 Below low normal [facility] ( [facility]) {SOURCE: Random Void~NURSE COLLECTED? N Is patient fasting? N {SPECIMEN TYPE: CLEAN CATCH MCV 87.4 fL 81.0-101 [facility] ([facility]) {SOURCE: Random Void~NURSE COLLECTED? N Is patient fasting? N {SPECIMEN TYPE: CLEAN CATCH MCH 29.0 pg 27.0-34.0 [facility] ([facility]) {SOURCE: Random Void~NURSE COLLECTED? N Is patient fasting? N {SPECIMEN TYPE: CLEAN CATCH RDW 14.0 % 11.5-14.5 [facility] ([facility]) {SOURCE: Random Void~NURSE COLLECTED? N Is patient fasting? N {SPECIMEN TYPE: CLEAN CATCH MCHC 33.2 g/dL 31.0-36.0 [facility] ([facility]) {SOURCE: Random Void~NURSE COLLECTED? N Is patient fasting? N {SPECIMEN TYPE: CLEAN CATCH Platelets 236 10^3/uL 150-450 [facility] ([facility]) {SOURCE: Random Void~NURSE COLLECTED? N Is patient fasting? N {SPECIMEN TYPE: CLEAN CATCH MPV 11.1 fL 7.4-10.4 Above high normal [facility] ([facility]) {SOURCE: Random Void~NURSE COLLECTED? N Is patient fasting? N {SPECIMEN TYPE: CLEAN CATCH Neut 68.2 % 37.0-80.0 [facility] ([facility]) {SOURCE: Random Void~NURSE COLLECTED? N Is patient fasting? N {SPECIMEN TYPE: CLEAN CATCH [place] 8.4 % 3.0-8.0 Above high normal [facility] ([facility]) {SOURCE: Random Void~NURSE COLLECTED? N Is patient fasting? N {SPECIMEN TYPE: CLEAN CATCH Lymph 19.1 % 25.0-40.0 Below low normal [facility] ( [facility]) {SOURCE: Random Void~NURSE COLLECTED? N Is patient fasting? N {SPECIMEN TYPE: CLEAN CATCH Baso 0.7 % 0.0-2.5 [facility] ([facility]) {SOURCE: Random Void~NURSE COLLECTED? N Is patient fasting? N {SPECIMEN TYPE: CLEAN CATCH Eos 0.9 % 0.0-7.0 [facility] ([facility]) {SOURCE: Random Void~NURSE COLLECTED? N Is patient fasting? N {SPECIMEN TYPE: CLEAN CATCH %Ig 2.7 % 0.0-0.0 Above high normal [facility] ([facility]) {SOURCE: Random Void~NURSE COLLECTED? N Is patient fasting? N {SPECIMEN TYPE: CLEAN CATCH %NRBC 0.0 % 0.0-0.0 [facility] ([facility]) {SOURCE: Random Void~NURSE COLLECTED? N Is patient fasting? N {SPECIMEN TYPE: CLEAN CATCH #Neut 6.98 10^3/uL 2.00-6.90 Above high normal [facility] ([facility]) {SOURCE: Random Void~NURSE COLLECTED? N Is patient fasting? N {SPECIMEN TYPE: CLEAN CATCH #Lymph 1.95 10^3/uL 0.60-3.40 [facility] ([facility]) {SOURCE: Random Void~NURSE COLLECTED? N Is patient fasting? N {SPECIMEN TYPE: CLEAN CATCH #[place] 0.86 10^3/uL 0.00-0.90 [facility] ([facility]) {SOURCE: Random Void~NURSE COLLECTED? N Is patient fasting? N {SPECIMEN TYPE: CLEAN CATCH #Baso 0.07 10^3/uL 0.00-0.20 [facility] ([facility]) {SOURCE: Random Void~NURSE COLLECTED? N Is patient fasting? N {SPECIMEN TYPE: CLEAN CATCH #Eos 0.09 10^3/uL 0.00-0.70 [facility] ([facility]) {SOURCE: Random Void~NURSE COLLECTED? N Is patient fasting? N {SPECIMEN TYPE: CLEAN CATCH #Ig 0.28 10^3/uL 0.00-0.10 Above high normal [facility] ([facility]) {SOURCE: Random Void~NURSE COLLECTED? N Is patient fasting? N {SPECIMEN TYPE: CLEAN CATCH Manual Diff Laboratory test result [facility] ([facility]) {SOURCE: Random Void~NURSE COLLECTED? N Is patient fasting? N {SPECIMEN TYPE: CLEAN CATCH #NRBC 0.00 10^3/uL 0.00-0.00 [facility] ([facility]) {SOURCE: Random Void~NURSE COLLECTED? N Is patient fasting? N {SPECIMEN TYPE: CLEAN CATCH RBC Morph Laboratory test result [facility] ([facility]) {SOURCE: Random Void~NURSE COLLECTED? N Is patient fasting? N {SPECIMEN TYPE: CLEAN CATCH ID Date Data Source [id number] 01/02/2021 10:41:00 AM EDT [facility] Name Value Range Interpretation Code Description Data Dolores rce(s) Supporting Document(s) CULTURE URINE [facility] _CULTURE URINE_$$[id number]$$[id number]$$[id number]$$[id number]$$[id number]$$[id number]$$[id number]$$988711$$[id number]$$ [id number]$$[id number]$$111104$$118462$$[id number]$$[id number]$$784002$$148611$$141421$$[id number]$$ 156755$$794421$$[id number]$$[id number]$$[id number]$$[id number]$$[id number]$$[id number] -- Continued on next page --Patient: CYN Nice Order: [id number] Page 2Culture: CULTURE URINE Status: Final ==== -- Continued on next page --Patient: CYN GARRISON M Order: [id number] Page 2Culture: CULTURE URINE Status: Prelim =====$$[id number]$$[id number] DATE/TIME: 01/02/2021 10:07Culture: CULTURE URINE Status: FinalUrine Culture,Comprehensive: [id number] urogenital flora5,000 Colonies/mL Previous result entered on 12/31/2020 06:46 ET No growth after 18-24 hours.P1 [facility]: [id number] [address] [place] [address] [id number] [facility] [id number] Director : Jose Martin Aguilar MD NPI #:Section [employer] : 01/01/[id number] REF 01/02/[id number].SENT REF ID Date Data Source [id number] 12/30/2020 08:15:[address] [facility] Value Range Interpretation Code Description Data Dolores rce(s) Supporting Document(s) Thyroperoxidase Ab [Units/volume] in Serum or Plasma <9 IU/mL 0-34 [facility] ID Date Data Source [id number] 12/30/2020 08:15:[address] [facility] Value Range Interpretation Code Description Data Dolores rce(s) Supporting Document(s) Triiodothyronine (T3) Free [Mass/volume] in Serum or Plasma 2.4 pg/ mL 2.0-4.4 [facility] ID Date Data Source [id number] 12/30/2020 08:04:[address] [facility] Value Range Interpretation Code Description Data Dolores rce(s) Supporting Document(s) HIV 1+2 Ab+HIV1 p24 Ag [Presence] in Serum or Plasma b y Immunoassay Non Reactive Non Reactive [facility] ID Date Data Source [id number] 12/28/2020 03:49:[address] [facility] Value Range Interpretation Code Description Data Dolores rce(s) Supporting Document(s) CBC W/AUTOMATED DIFF [facility] COMPLETE BLOOD COUNT Leukocytes [#/volume] in Blood by Automated count 10.2 10^3/uL 4.2 - 11.0 [facility] Erythrocytes [#/volume] in Blood by Automated count 3.41 10^6/uL 4. 20 - 5.40 L [facility] Hemoglobin [Mass/volume] in Blood 9.9 g/dL 12.0 - 16.0 L [facility] Hematocrit [Volume Fraction] of Blood by Automated count 29.8 % 3 7.0 - 47.0 L [facility] Erythrocyte mean corpuscular volume [Entitic volume] by Auto mated count 87.4 fL 81.0 - 101 [facility] Erythrocyte mean corpuscular hemoglobin [Entitic mass] by Automated count 29.0 pg 27.0 - 34.0 [facility] Erythrocyte mean corpuscular hemoglobin concentration [Mass/volume] by Automated count 33.2 g/dL 31.0 - 36.0 [facility] Erythrocyte distribution width [Ratio] by Automated count 14.0 % 11.5 - 14.5 [facility] Platelets [#/volume] in Blood by Automated count 236 10^3/uL 150 - 45 0 [facility] Platelet mean volume [Entitic volume] in Blood by Automated count 11.1 fL 7.4 - 10.4 H [facility] Neutrophils/100 leukocytes in Blood by Automated count 68.2 % 37. 0 - 80.0 [facility] Lymphocytes/100 leukocytes in Blood by Manual count 19.1 % 25.0 - 40.0 L [facility] Monocytes/100 leukocytes in Blood by Automated count 8.4 % 3.0 - 8.0 H [facility] Eosinophils/100 leukocytes in Blood by Automated count 0.9 % 0.0 - 7.0 [facility] Basophils/100 leukocytes in Blood by Automated count 0.7 % 0.0 - 2.5 [facility] %IG 2.7 % 0.0 - 0.0 [facility] 0.0 % 0.0 - 0.0 [facility] al Neutrophils [#/volume] in Blood by Automated count 6.98 10^3/uL 2.00 - 6.90 H [facility] Lymphocytes [#/volume] in Blood by Automated count 1.95 10^3/uL 0.60 - 3.40 [facility] Monocytes [#/volume] in Blood by Automated count 0.86 10^3/uL 0.00 - 0.90 [facility] Eosinophils [#/volume] in Blood by Automated count 0.09 10^3/uL 0.00 - 0.70 [facility] Basophils [#/volume] in Blood by Automated count 0.07 10^3/uL 0.00 - 0.20 [facility] #IG 0.28 10^3/uL 0.00 - 0.[address] [facility] #NRBC 0.00 10^3/uL 0.00 - 0.00 [facility] ospital MANUAL DIFF NOT INDICATED [facility] RBC MORPH NOT INDICATED [facility] ID Date Data Source [id number] 12/28/2020 03:43:00 PM EDT [facility] Name Value Range Interpretation Code Description Data Dolores rce(s) Supporting Document(s) Hepatitis B virus surface Ab [Units/volume] in Serum o r Plasma by Immunoassay NONREACTIVE NORMAL:NON REACTIVE [facility] ID Date Data Source [id number] 12/28/2020 03:37:00 PM EDT [facility] Name Value Range Interpretation Code Description Data Dolores rce(s) Supporting Document(s) Treponema pallidum Ab [Presence] in Serum NON-REACTIVE NORMAL:NON MICAH CTIVE [facility] ID Date Data Source [id number] 12/28/2020 03:26:00 PM EDT [facility] Name Value Range Interpretation Code Description Data Dolores rce(s) Supporting Document(s) URINALYSIS [facility] URINALYSIS SOURCE R [facility] COLOR yellow NORMAL: Yellow [facility] CLARITY clear NORMAL: Clear [facility] spital Specific gravity of Urine by Test strip 1.015 1.001 - 1.030 [facility] pH 8 5 - 9 [facility] al Glucose [Mass/volume] in Urine by Test strip NORM NORMAL: Negat nancy [facility] Bilirubin.total [Presence] in Urine by Test strip NEG NORMAL: Negative [facility] Ketones [Presence] in Urine by Test strip NEG NORMAL: Negative [facility] Protein [Mass/volume] in Urine by Test strip NEG NORMAL: Negat nancy [facility] Nitrite [Presence] in Urine by Test strip NEG NORMAL: Negative [facility] BLOOD NEG NORMAL: Negative [facility] Leukocyte esterase [Presence] in Urine by Test strip 100 JAVAN L: Negative A [facility] Urobilinogen [Mass/volume] in Urine by Test strip NOR less kavon n 1.0 mg/dL [facility] MICROSCOPIC See Below [facility] ital WBC 0 - 1 NORMAL: NONE SEEN [facility] EPITHELIAL FEW NORMAL: NONE SEEN [facility] ID Date Data Source [id number] 12/29/2020 02:07:00 PM EDT [facility] Name Value Range Interpretation Code Description Data Dolores rce(s) Supporting Document(s) Calcidiol [Moles/volume] in Serum or Plasma 23 NG/ML [facility] VITAMIN-D(2 5HYDROXY) Deficiency: <=20 ng/ml Insufficiency: 21-29 ng/ml Preferred level: => 30 ng/ml ID Date Data Source [id number] 12/28/2020 05:40:00 PM EDT [facility] Name Value Range Interpretation Code Description Data Dolores rce(s) Supporting Document(s) Thyroxine (T4) [Mass/volume] in Serum or Plasma 10.1 UG/DL 4.5 - 12.5 [facility] ID Date Data Source [id number] 12/28/2020 05:40:00 PM EDT [facility] Name Value Range Interpretation Code Description Data Dolores rce(s) Supporting Document(s) Thyroxine (T4) free index in Serum or Plasma by calculation 0.91 NG/DL 0.93 - 1.70 L [facility] ID Date Data Source [id number] 12/28/2020 05:40:00 PM EDT [facility] Name Value Range Interpretation Code Description Data Dolores rce(s) Supporting Document(s) Rubella virus IgG Ab [Units/volume] in Serum 175.900 IU/ml [facility] REACTI VE \\BLDo\\Rubella Immunity Interpretation\\BLDx\\ Non-reactive: <10 IU/mL Reactive: greater than or equal to 10 IU/mL A reactive result is presumptive evidence of immunity to Rubella, except when acute infection is suspected. ID Date Data Source [id number] 12/28/2020 05:37:00 PM EDT [facility] Name Value Range Interpretation Code Description Data Dolores rce(s) Supporting Document(s) Thyrotropin [Units/volume] in Serum or Plasma by Detec tion limit <= 0.05 mIU/L 1.27 uIU/mL 0.47 - 5.01 [facility] ID Date Data Source [id number] 12/28/2020 04:00:00 PM EDT [facility] Name Value Range Interpretation Code Description Data [facility](s) Supporting Document(s) COMPREHENSIVE METABOLIC PANEL [facility] COMPREHENSIVE METABOLIC PANEL Sodium [Moles/volume] in Serum or Plasma 136 mEq/L 134 - 153 [facility] Potassium [Moles/volume] in Serum or Plasma 3.6 mEq/L 3.6 - 5.0 [facility] Chloride [Moles/volume] in Serum or Plasma 105 mEq/L 98 - 107 [facility] Carbon dioxide, total [Moles/volume] in Serum or Plasma 21 MEQ/L 22 - 30 L [facility] Glucose [Mass/volume] in Serum or Plasma 108 MG/DL 70 - 99 H [facility] BUN 7 MG/DL 7 - 21 [facility] Creatinine [Mass/volume] in Serum or Plasma 0.6 MG/DL 0.7 - 1.5 L [facility] BUN/CREAT 12 8 - 27 [facility] al Protein [Mass/volume] in Serum or Plasma 5.9 G/DL 6.3 - 8.2 L [facility] Albumin [Mass/volume] in Serum or Plasma 3.4 G/DL 3.9 - 5.0 L [facility] Globulin [Mass/volume] in Serum by calculation 2.5 GM/DL 2.4 - 3.2 [facility] A/G RATIO 1.4 0.8 - 2.0 [facility] Calcium [Mass/volume] in Serum or Plasma 8.6 MG/DL 8.4 - 10.2 [facility] Bilirubin.total [Mass/volume] in Serum or Plasma <0.7 MG/DL 0.2 - 1.3 [facility] Alkaline phosphatase [Enzymatic activity/volume] in Serum or Plasma 235 U/L 38 - 126 H [facility] Aspartate aminotransferase [Enzymatic activity/volume] in Serum or Plasma 15 U/L 5 - 40 [facility] Alanine aminotransferase [Enzymatic activity/volume] in Seru m or Plasma 6 U/L 7 - 56 L [facility] Anion gap 3 in Serum or Plasma 10.0 mmol/L 8.0 - 16.0 [facility] AGE [address] [facility] al NON-AA GFR >60 mL/min [facility] ital AFR AMER GFR >60 mL/min [facility] sp[facility] Male GFR In terprentation 20-49 [...] >32 mL/min Normal ID Date Data Source [id number] 12/28/2020 04:00:00 PM EDT [facility] Name Value Range Interpretation Code Description Data Dolores rce(s) Supporting Document(s) Glucose [Mass/volume] in Serum or Plasma 109 MG/DL 70 - 99 H [facility] ID Date Data Source [id number] 12/28/2020 03:59:00 PM EDT [facility] Name Value Range Interpretation Code Description Data Dolores rce(s) Supporting Document(s) ABO group [Type] in Blood O [facility] Rh [Type] in Blood POSITIVE [facility] AB SCREEN NEGATIVE NORMAL: NEGATIVE [facility] { ABO/RH REENTER O POSITIVE{ AB SCREEN RE-ENTER NEGATIVE ID Date Data Source [id number] 12/22/2020 02:41:00 PM EDT [facility] ([facility]) Name Value Range Interpretation Code Description Data Dolores rce(s) Supporting Document(s) Culture GBS Vaginal Laboratory test result [facility] ([facility]) NKDA~SOURCE:ANAL/VAGINAL~.~Z36.9 ID Date Data Source [id number] 12/27/2020 08:08:00 PM EDT [facility] Name Value Range Interpretation Code Description Data Dolores rce(s) Supporting Document(s) CULTURE GBS VAGINAL [facility] _B-STREP GROUP B CULTURE_$$[id number]$$ [id number] DATE/TIME: 12/27/2020 08:08Culture: CULTURE GBS VAGINAL Status: FinalStrep Gp B Culture: [id number] Range: NegativeCenters for Disease Control and Prevention (CDC) and [place] Congressof Obstetricians and Gynecologists (ACOG) guidelines for [...] to clindamycin is noted.P1 Test performed by: [facility] Lisa ESPINALIA #: [id number] [address] [place] [address] [id number] [facility] [phone] -- Continued on next page --Patient: CYN Nice Order: [id number] Page 2Culture: CULTURE GBS VAGINAL Status: Final ====Fisher Pot : Jose Martin Aguilar MD NPI #:Section Forest [employer] Warden : 12/27/20.2007.XMT.[email or web address] REF ID Date Data Source [id number] 12/05/2020 10:10:00 PM EDT [facility] ([facility]) Name Value Range Interpretation Code Description Data Dolores rce(s) Supporting Document(s) Culture Urine Laboratory test result [facility] ([facility]) {SOURCE: Random Void~NURSE COLLECTED? N ID Date Data Source [id number] 12/05/2020 10:10:00 PM EDT [facility] ([facility]) Name Value Range Interpretation Code Description Data Dolores rce(s) Supporting Document(s) Urinalysis Laboratory test result [facility] ([facility]) {SOURCE: Random Void~NURSE COLLECTED? N Source Laboratory test result [facility] ([facility]) {SOURCE: Random Void~NURSE COLLECTED? N Clarity Laboratory test result [facility] ([facility]) {SOURCE: Random Void~NURSE COLLECTED? N Color Laboratory test result [facility] ([facility]) {SOURCE: Random Void~NURSE COLLECTED? N pH 8 5-9 [facility] ([facility]) {SOURCE: Random Void~NURSE COLLECTED? N Spec [place] 1.015 1.001-1.030 [facility] ([facility]) {SOURCE: Random Void~NURSE COLLECTED? N Bilirubin Laboratory test result [facility] ([facility]) {SOURCE: Random Void~NURSE COLLECTED? N Glucose Laboratory test result [facility] ([facility]) {SOURCE: Random Void~NURSE COLLECTED? N Ketone Laboratory test result [facility] ([facility]) {SOURCE: Random Void~NURSE COLLECTED? N Nitrite Laboratory test result [facility] ([facility]) {SOURCE: Random Void~NURSE COLLECTED? N Protein Laboratory test result [facility] ([facility]) {SOURCE: Random Void~NURSE COLLECTED? N Leuk Est 100 Abnormal (applies to non-numeric res ults) [facility] ([facility]) {SOURCE: Random Void~NURSE COLLECTED? N Blood Laboratory test result [facility] ([facility]) {SOURCE: Random Void~NURSE COLLECTED? N Microscopic Laboratory test result [facility] ([facility]) {SOURCE: Random Void~NURSE COLLECTED? N Urobilinogen Laboratory test result [facility] ([facility]) {SOURCE: Random Void~NURSE COLLECTED? N WBC Laboratory test result [facility] ([facility]) {SOURCE: Random Void~NURSE COLLECTED? N RBC Laboratory test result [facility] ([facility]) {SOURCE: Random Void~NURSE COLLECTED? N Epithelial Laboratory test result Abnormal (applies to non -numeric results) [facility] ([facility]) {SOURCE: Random Void~NURSE COLLECTED? N Bacteria Laboratory test result [facility] ([facility]) {SOURCE: Random Void~NURSE COLLECTED? N Amorph Sed Laboratory test result [facility] ([facility]) {SOURCE: Random Void~NURSE COLLECTED? N ID Date Data Source [id number] 12/08/2020 07:55:00 AM EDT [facility] Name Value Range Interpretation Code Description Data Dolores rce(s) Supporting Document(s) CULTURE URINE [facility] spital _CULTURE URINE_$$[id number]$$[id number]$$849822$$981768$$546417$$375605$$070773$$416214$$523496$$ 550317$$775741$$464147$$658055$$735806$$820131$$790161$$845997$$151418$$145909$$ 869564$$283999$$182988$$986899$$039935$$065840$$785733$$841748 -- Continued on next page --Patient: CYN GARRISON Order: [id number] Page 2Culture: CULTURE URINE Status: Final ====$$[id number]$$[id number] DATE/TIME: 12/08/2020 06:06Culture: CULTURE URINE Status: FinalUrine Culture,Comprehensive: T4Conoo urogenital flora25,000-50,000 colony forming units per mLP1 Test performed by: Jet DE OLIVEIRA #: [id number] [address] [place] [address] [phone] [facility] [id number] Director : Jose Martin Aguilar MD NPI #:Section [employer] W[employer] : 12/08/20.0755.XMT.SENT REF ID Date Data Source [id number] 12/05/2020 10:40:00 PM EDT [facility] Name Value Range Interpretation Code Description Data Dolores rce(s) Supporting Document(s) [facility] SOURCE R [facility] COLOR yellow NORMAL: Yellow [facility] CLARITY hazy NORMAL: Clear [facility] Specific gravity of Urine by Test strip 1.015 1.001 - 1.030 [facility] pH 8 5 - 9 [facility] Glucose [Mass/volume] in Urine by Test strip NORM NORMAL: Negat [facility] Bilirubin.total [Presence] in Urine by Test strip NEG NORMAL: Negative [facility] Ketones [Presence] in Urine by Test strip NEG NORMAL: Negative [facility] Protein [Mass/volume] in Urine by Test strip NEG NORMAL: [facility] Nitrite [Presence] in Urine by Test strip NEG NORMAL: Negative [facility] BLOOD NEG NORMAL: Negative [facility] Leukocyte esterase [Presence] in Urine by Test strip 100 JAVAN L: Negative A [facility] Urobilinogen [Mass/volume] in Urine by Test strip NOR less kavon n 1.0 mg/dL [facility] MICROSCOPIC See Below [facility] ital WBC 3 - 5 NORMAL: NONE SEEN [facility] Erythrocytes [#/volume] in Urine by Test strip None Seen NORMAL: NON E SEEN [facility] EPITHELIAL MANY NORMAL: NONE SEEN A [facility] Bacteria [Presence] in Urine sediment by Light microscopy Tr medina NORMAL: NONE SEEN [facility] Amorphous sediment [Presence] in Urine sediment by Light rosi roscopy 1+ NORMAL: NONE SEEN [facility] ID Date Data Source [id number] 11/09/2020 12:43:00 AM EDT [facility] [address] [place] [address] ---------NAME--------- NUMBER SEX AGE ADMIT DISC. XRAY# F/C TYPE CYN GARRISON [id number] F 25 11/08/20 [id number] XB2 O/P DATE OF : 1995 M/R# [id number] #: [id number] LOCATION: TRANSCRIBED: 11/09/20 43 IF US OB LIMITED 1OR MORE [id number] STOP: 11/09/20 15:21 ADB 8819 Reason for [...] rce(s) Supporting Document(s) ID Date Data Source [id number] 11/08/2020 11:50:00 PM EDT [facility] ([facility]) Name Value Range Interpretation Code Description Data Dolores rce(s) Supporting Document(s) Culture Urine Laboratory test result [facility] ([facility]) _CULTURE URINE_ ^$[id number] ^^601339 $$930466 ^^272085 $$156079 $$185709 $$128554 $$732405 $$334636 $$705386 $$561993 $$023187 $$453410 $$710150 $$106560 $$010905 $$977536 $$073274 $$376687 $$223030 $$601961 $$053503 $$527757 $$965952 $$657753 $$876739 $$591346 ^^254325 $$253174 $$203319 $$719619 -- Continued on next page -- Patient: CYN GILLISICA Order: [id number] Page 2 Culture: CULTURE URINE Status: Final -- Continued on next page -- Patient: CYN GILLISICA Order: [id number] Page 2 Culture: CULTURE URINE Status: Prelim $$[id number] $$[id number] REPORTED DATE/TIME: 11/13/2020 16:07 Culture: CULTURE URINE Status: Final Urine Culture,Comprehensive: P1 Mixed urogenital drew 10,000-25,000 colony forming units per m L Previous result entered on 11/11/2020 09:23 ET No growth after 18-24 hours. P1 Test performed by: [facility]: [id number] [address] [phone] [facility] [id number] Fisher Pot : Jose Martin Aguilar MD NPI #: Section [employer] : 11/11/20.1329.XMT.SENT REF 11/13/20.1917.XMT.SENT REF ID Date Data Source [id number] 11/08/2020 11:50:00 PM EDT [facility] ([facility]) Name Value Range Interpretation Code Description Data Dolores rce(s) Supporting Document(s) Urinalysis Laboratory test result [facility] ([facility]) URINALYSIS Source Laboratory test result [facility] ([facility]) Color Laboratory test result [facility] ([facility]) Clarity Laboratory test result [facility] ([facility]) Spec [place] 1.010 1.001-1.030 [facility] ([facility]) pH 6.5 5-9 [facility] ([facility]) Glucose Laboratory test result [facility] ([facility]) Ketone Laboratory test result [facility] ([facility]) Bilirubin Laboratory test result [facility]) Nitrite Laboratory test result [facility] ([facility]) Protein Laboratory test result [facility] ([facility]) Blood Laboratory test result [facility] ([facility]) Leuk Est 500 Abnormal (applies to non-numeric res ults) [facility] ([facility]) Urobilinogen Laboratory test result [facility] ([facility]) Microscopic Laboratory test result [facility] ([facility]) RBC Laboratory test result [facility] ([facility]) WBC Laboratory test result Abnormal (applies to non -numeric results) [facility] ([facility]) Epithelial Laboratory test result [facility] ([facility]) Bacteria Laboratory test result [facility] ([facility]) Mucous Laboratory test result [facility] ID Date Data Source [id number] 11/08/2020 11:50:00 PM EDT [facility] ([facility]) Name Value Range Interpretation Code Description Data Dolores rce(s) Supporting Document(s) Laboratory test finding (navigational concept) Laboratory test result [facility] ([facility]) _AMNISURE MEMBRANE TEST_ Laboratory test finding (navigational concept) Laboratory test result [facility] ([facility]) Laboratory test finding (navigational concept) Laboratory test result [facility] ([facility]) Laboratory test finding (navigational concept) [id number] [facility] ([facility]) Laboratory test finding (navigational concept) Laboratory test result [facility]) NORMAL RANGE: NO RUPTURED MEMBRANES THE AMNISURE ROM TEST RESULTS ARE QUALITATIVE. NO QUANTITATIVE INTERPRETATION SHOULD BE MADE BASED ON THE TEST RESULTS. RESULTS SHOULD BE USED IN CONJUCTION WITH OTHER CLINICAL INFORMATION Laboratory test finding (navigational concept) [id number] [facility] ([facility]) ID Date Data Source [id number] 11/13/2020 07:17:00 PM EDT [facility] Name Value Range Interpretation Code Description Data Dolores rce(s) Supporting Document(s) CULTURE URINE [facility] spital _CULTURE URINE_$$[id number]$$913567$$257289$$848269$$764111$$348133$$046263$$944498$$169404$$ 856687$$606537$$971281$$612584$$260431$$182232$$497958$$395671$$014810$$166771$$ 240391$$806356$$257812$$093170$$790215$$894270$$370308$$056117 -- Continued on next page --Patient: CYN GARRISON Order: [id number] Page 2Culture: CULTURE URINE Status: Final ==== -- Continued on next page --Patient: CYN GARRISON Order: [id number] Page 2Culture: CULTURE URINE Status: Prelim =====$$[id number]$$[id number] DATE/TIME: 11/13/2020 16:07Culture: CULTURE URINE Status: FinalUrine Culture,Comprehensive: M0Lfvor urogenital flora10,000-25,000 colony forming units per mL Previous result entered on 11/11/2020 09:23 ET No growth after 18-24 hours.P1 Test performed by: [facility] #: [id number] [address] [place] [address] [phone] [facility] [id number] Director : Jose Martin Aguilar MD NPI #:Section [employer] : 11/11/20.1329.XMT.SENT REF 11/13/20.1917.XMT.SENT REF ID Date Data Source [id number] 11/09/2020 12:26:00 AM EDT [facility] Name Value Range Interpretation Code Description Data Dolores rce(s) Supporting Document(s) UR[facility]ALYSIS [facility] URINALYSIS SOURCE Clean Catch [facility] COLOR yellow NORMAL: Yellow [facility] CLARITY clear NORMAL: Clear [facility] Specific gravity of Urine by Test strip 1.010 1.001 - 1.030 [facility] pH 6.5 5 - 9 [facility] Glucose [Mass/volume] in Urine by Test strip NORM NORMAL: Negat nancy [facility] Bilirubin.total [Presence] in Urine by Test strip NEG NORMAL: Negative [facility] Ketones [Presence] in Urine by Test strip NEG NORMAL: Negative [facility] Protein [Mass/volume] in Urine by Test strip NEG NORMAL: Negat nancy [facility] Nitrite [Presence] in Urine by Test strip NEG NORMAL: Negative [facility] BLOOD NEG NORMAL: Negative [facility] Leukocyte esterase [Presence] in Urine by Test strip 500 JAVAN L: Negative A [facility] Urobilinogen [Mass/volume] in Urine by Test strip NOR less kavon n 1.0 mg/dL [facility] MICROSCOPIC See Below [facility] ital WBC 10 - [address]: [address] [facility] Erythrocytes [#/volume] in Urine by Test strip 0 - 1 NORMAL: NON E SEEN [facility] EPITHELIAL FEW NORMAL: NONE SEEN [facility] Bacteria [Presence] in Urine sediment by Light microscopy 1+ SMALL NORMAL: NONE SEEN [facility] Mucus [Presence] in Urine sediment by Light microscopy Trace NORMAL: NONE SEEN [facility] ID Date Data Source [id number] 11/09/2020 12:17:00 AM EDT [facility] Name Value Range Interpretation Code Description Data Dolores rce(s) Supporting Document(s) AMNISURE MEMBRANE TEST C [facility] _AMNISURE MEMBRANE TEST_ [facility] REENTER NEGATIVE [facility] TRIP LOT # [id number] [facility] TR[facility] EXP DATE [id number] [facility] NORMAL RANGE: NO RUPTURED MEMBRANES THE AMNISURE ROM TEST RESULTS ARE QUALITATIVE. NO QUANTITATIVEINTERPRETATION SHOULD BE MADE BASED ON THE TEST RESULTS.RESULTS SHOULD BE USED IN CONJUCTION WITH OTHER CLINICAL INFORMATION ID Date Data Source [id number] 11/08/2020 10:37:00 AM EDT [facility] [address] [place] [address] PHONE: [phone] FAX: [phone] Name .................. : CYN GARRISON Acct Number.................. : [id number] ROOM. ................. : 003-1 MR Number ................... : [id number] Stay type ............. : O/P Discharge Date......... ... : 11/07/20 Admit Date ......... : 11/07/20 Admit Phys .................... : NWOGU BRUNO Date of ....... : 1995 Family Phys ................... : NON STAFF Phone .................. : [phone] Age ................................ : 25 Film# .................. .:[id number] Sex ................................. : F Unsigned transcriptions are preliminary reports and do not represent a medical or legal document OB BIOPHYSICAL PROFILE [id number] COMPLETE:11/07/20 14:42 KNB 8688 Reason for Exam: DECREASED MOVEMENT OB [...] DO , 11/08/20 10:37, JOHANNY Transcribe Initials: DELLA , Transcribe Date: 11/08/20 01:36, Dictation Date: Copy for: 710 MED REC DISCHARGED Page 1 of 1 Name Value Range Interpretation Code Description Data Dolores rce(s) Supporting Document(s) ID Date Data Source [id number] 11/07/2020 02:50:00 PM EDT [facility] ([facility]) Name Value Range Interpretation Code Description Data Dolores rce(s) Supporting Document(s) Comprehensive [employer] Laboratory test result [facility] ([facility]) COMPREHENSIVE METABOLIC PANEL Sodium 134 meq/L 134-153 [facility] ([facility]) Potassium 4.1 meq/L 3.6-5.0 [facility] ([facility]) Co2 22 meq/L 22-30 [facility] ([facility]) Chloride 103 meq/L 98-107 [facility] ([facility]) Glucose 65 mg/dL 70-99 Below low normal [facility] ( [facility]) BUN 6 mg/dL 7-21 Below low normal [facility] ([facility]) Creatinine 0.4 mg/dL 0.7-1.5 Below low normal [facility] ( [facility]) Total Protein 5.7 g/dL 6.3-8.2 Below low normal [facility] ([facility]) BUN/Creat 15 8-27 [facility] ([facility]) Albumin 3.5 g/dL 3.9-5.0 Below low normal [facility] ( [facility]) Globulin 2.2 GM/DL 2.4-3.2 Below low normal [facility] ( [facility]) A/G Ratio 1.6 0.8-2.0 [facility] ([facility]) Total Bili Laboratory test result 0.2-1.3 [facility] ([facility]) Calcium 9.4 mg/dL 8.4-10.2 [facility] ([facility]) Alkaline Phos 126 U/L 38-126 [facility] ([facility]) Sgot/Ast 13 U/L 5-40 [facility] ([facility]) Anion Gap 9.0 mmol/L 8.0-16.0 [facility] ([facility]) SGPT/Alt 6 U/L 7-56 Below low normal [facility] ([facility]) Age 25 yrs [facility] ([facility]) Non-Aa GFR Laboratory test result [facility] ([facility]) Afr Amer GFR Laboratory test result [facility] ([facility]) Male GFR Interprentation 20-49 yrs >60 mL/min [...] >32 mL/min Normal ID Date Data Source [id number] 11/07/2020 02:50:00 PM EDT [facility] ([facility]) Name Value Range Interpretation Code Description Data Dolores rce(s) Supporting Document(s) Lipase [Enzymatic activity/volume] in Serum or Plasma 27 U/L 13-6 0 [facility] ([facility]) ID Date Data Source [id number] 11/07/2020 02:50:00 PM EDT [facility] ([facility]) Name Value Range Interpretation Code Description Data Dolores rce(s) Supporting Document(s) CBC W/Automated Diff Laboratory test result [facility] ([facility]) COMPLETE BLOOD COUNT WBC 10.3 10^3/uL 4.2-11.0 [facility] ([facility]) RBC 3.36 10^6/uL 4.20-5.40 Below low normal [facility] ([facility]) Hematocrit 29.6 % 37.0-47.0 Below low normal [facility] ( [facility]) Hemoglobin 10.3 g/dL 12.0-16.0 Below low normal [facility] ( [facility]) MCV 88.1 fL 81.0-101 [facility] ([facility]) MCHC 34.8 g/dL 31.0-36.0 [facility] ([facility]) MCH 30.7 pg 27.0-34.0 [facility] ([facility]) RDW 12.5 % 11.5-14.5 [facility] ([facility]) Platelets 224 10^3/uL 150-450 [facility] ([facility]) Neut 66.6 % 37.0-80.0 [facility] ([facility]) MPV 11.2 fL 7.4-10.4 Above high normal [facility] ([facility]) Lymph 19.3 % 25.0-40.0 Below low normal [facility] ( [facility]) [place]ois 8.5 % 3.0-8.0 Above high normal [facility] ([facility]) Baso 0.8 % 0.0-2.5 [facility] ([facility]) Eos 1.2 % 0.0-7.0 [facility] ([facility]) %NRBC 0.0 % 0.0-0.0 [facility] ([facility]) %Ig 3.6 % 0.0-0.0 Above high normal [facility] ([facility]) #Lymph 1.98 10^3/uL 0.60-3.40 [facility] ([facility]) #Neut 6.84 10^3/uL 2.00-6.90 [facility] ([facility]) #Dubois 0.87 10^3/uL 0.00-0.90 [facility] ([facility]) #Eos 0.12 10^3/uL 0.00-0.70 [facility] ([facility]) #Baso 0.08 10^3/uL 0.00-0.20 [facility] ([facility]) #Ig 0.37 10^3/uL 0.00-0.10 Above high normal [facility] T ([facility]) #NRBC 0.00 10^3/uL 0.00-0.00 [facility] ([facility]) Manual Diff Laboratory test result M [facility] ([facility]) RBC Morph Laboratory test result [facility] ([facility]) ID Date Data Source [id number] 11/07/2020 04:06:00 PM EDT [facility] Name Value Range Interpretation Code Description Data Dolores rce(s) Supporting Document(s) COMPREHENSIVE METABOLIC PANEL [facility] COMPREHENSIVE METABOLIC PANEL Sodium [Moles/volume] in Serum or Plasma 134 mEq/L 134 - 153 [facility] Potassium [Moles/volume] in Serum or Plasma 4.1 mEq/L 3.6 - 5.0 [facility] Chloride [Moles/volume] in Serum or Plasma 103 mEq/L 98 - 107 [facility] Carbon dioxide, total [Moles/volume] in Serum or Plasma 22 MEQ/L 22 - 30 [facility] Glucose [Mass/volume] in Serum or Plasma 65 MG/DL 70 - 99 L [facility] BUN 6 MG/DL 7 - 21 L [facility] al Creatinine [Mass/volume] in Serum or Plasma 0.4 MG/DL 0.7 - 1.5 L [facility] BUN/CREAT 15 8 - 27 [facility] al Protein [Mass/volume] in Serum or Plasma 5.7 G/DL 6.3 - 8.2 L [facility] Albumin [Mass/volume] in Serum or Plasma 3.5 G/DL 3.9 - 5.0 L [facility] Globulin [Mass/volume] in Serum by calculation 2.2 GM/DL 2.4 - 3.2 L [facility] A/G RATIO 1.6 0.8 - 2.0 [facility] Calcium [Mass/volume] in Serum or Plasma 9.4 MG/DL 8.4 - 10.2 [facility] Bilirubin.total [Mass/volume] in Serum or Plasma <0.7 MG/DL 0.2 - 1.3 [facility] Alkaline phosphatase [Enzymatic activity/volume] in Serum or Plasma 126 U/L 38 - 126 [facility] Aspartate aminotransferase [Enzymatic activity/volume] in Serum or Plasma 13 U/L 5 - 40 [facility] Alanine aminotransferase [Enzymatic activity/volume] in Seru m or Plasma 6 U/L 7 - 56 L [facility] Anion gap 3 in Serum or Plasma 9.0 mmol/L 8.0 - 16.0 [facility] AGE [address] [facility] NON-AA GFR >60 mL/min [facility] AFR AMER GFR >60 mL/min [facility] Male GFR In terprentation 20-49 [...] >32 mL/min Normal ID Date Data Source [id number] 11/07/2020 04:04:00 PM EDT [facility] Name Value Range Interpretation Code Description Data Dolores rce(s) Supporting Document(s) Lipase [Enzymatic activity/volume] in Serum or Plasma 27 U/L 13 - 60 [facility] ID Date Data Source [id number] 11/07/2020 03:00:00 PM T [facility] Name Value Range Interpretation Code Description Data Dolores rce(s) Supporting Document(s) CBC W/AUTOMATED DIFF [facility] COMPLETE BLOOD COUNT Leukocytes [#/volume] in Blood by Automated count 10.3 10^3/uL 4.2 - 11.0 [facility] Erythrocytes [#/volume] in Blood by Automated count 3.36 10^6/uL 4. 20 - 5.40 L [facility] Hemoglobin [Mass/volume] in Blood 10.3 g/dL 12.0 - 16.0 L [facility] Hematocrit [Volume Fraction] of Blood by Automated count 29.6 % 3 7.0 - 47.0 L [facility] Erythrocyte mean corpuscular volume [Entitic volume] by Auto mated count 88.1 fL 81.0 - 101 [facility] Erythrocyte mean corpuscular hemoglobin [Entitic mass] by Automated count 30.7 pg 27.0 - 34.0 [facility] Erythrocyte mean corpuscular hemoglobin concentration [Mass/volume] by Automated count 34.8 g/dL 31.0 - 36.0 [facility] Erythrocyte distribution width [Ratio] by Automated count 12.5 % 11.5 - 14.5 [facility] Platelets [#/volume] in Blood by Automated count 224 10^3/uL 150 - 45 0 [facility] Platelet mean volume [Entitic volume] in Blood by Automated count 11.2 fL 7.4 - 10.4 H [facility] Neutrophils/100 leukocytes in Blood by Automated count 66.6 % 37. 0 - 80.0 [facility] Lymphocytes/100 leukocytes in Blood by Manual count 19.3 % 25.0 - 40.0 L [facility] Monocytes/100 leukocytes in Blood by Automated count 8.5 % 3.0 - 8.0 H [facility] Eosinophils/100 leukocytes in Blood by Automated count 1.2 % 0.0 - 7.0 [facility] Basophils/100 leukocytes in Blood by Automated count 0.8 % 0.0 - 2.5 [facility] %IG 3.6 % 0.0 - 0.0 [facility] %NRBC 0.0 % 0.0 - 0.0 [facility] al Neutrophils [#/volume] in Blood by Automated count 6.84 10^3/uL 2.00 - 6.90 [facility] Lymphocytes [#/volume] in Blood by Automated count 1.98 10^3/uL 0.60 - 3.40 [facility] Monocytes [#/volume] in Blood by Automated count 0.87 10^3/uL 0.00 - 0.90 [facility] Eosinophils [#/volume] in Blood by Automated count 0.12 10^3/uL 0.00 - 0.70 [facility] Basophils [#/volume] in Blood by Automated count 0.08 10^3/uL 0.00 - 0.20 [facility] #IG 0.37 10^3/uL 0.00 - 0.10 [facility] #NRBC 0.00 10^3/uL 0.00 - 0.00 [facility] MANUAL DIFF NOT INDICATED [facility] RBC MORPH NOT INDICATED [facility] ID Date Data Source [id number] 11/07/2020 02:25:00 PM EDT [facility] ([facility]) Name Value Range Interpretation Code Description Data Dolores rce(s) Supporting Document(s) Culture Urine Laboratory test result [facility] ([facility]) _CULTURE URINE_ ^$[id number] ^^[id number] $$[id number] ^^[id number] $$706617 $$957744 $$946025 $$079823 $$342117 $$434769 $$541802 $$892421 $$630996 $$831227 $$080336 $$315846 $$583116 $$380800 $$301430 $$341196 $$629470 $$101393 $$008926 $$835410 $$211023 $$668824 $$857201 ^^375151 $$740441 $$603200 $$070617 -- Continued on next page -- Patient: CAPANELLI BLADIMIR Order: [id number] Page 2 Culture: CULTURE URINE Status: Final -- Continued on next page -- Patient: CAPANELLI BLADIMIR Order: [id number] Page 2 Culture: CULTURE URINE Status: Prelim -- Continued on next page -- Patient: CAPANELLI BLADIMIR Order: [id number] Page 2 Culture: CULTURE URINE Status: Prelim -- Continued on next page -- Patient: CYN GARRISON Order: [id number] Page 2 Culture: CULTURE URINE Status: Prelim $$[id number] $$[id number] REPORTED DATE/TIME: 11/12/2020 08:06 Culture: CULTURE URINE [...] baumannii Flag: A Patient: CYN GARRISON Order: [id number] Page 3 Culture: CULTURE URINE Status: Final [...] S S . . . . . .64002-9 Meropenem S S . . . . . .6652-2 Piperacillin I I . . . . . .408-5 Tetracycline S S . . . . . .496-0 Tobramycin S S . . . . . .508-2 Trimethoprim/Sulfa S S . . . . . 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 : 11/10/20.2004.XMT.SENT REF 11/10/20.XMT.SENT REF 11/11/20.1328.XMT.SENT REF 11/11/20.1328.XMT.SENT REF 11/11/20.1328.XMT.SENT REF 11/12/20.1057.XMT.SENT REF ID Date Data Source [id number] 11/07/2020 02:25:00 PM EDT [facility] ([facility]) Name Value Range Interpretation Code Description Data Dolores rce(s) Supporting Document(s) Urinalysis Laboratory test result [facility] ([facility]) URINALYSIS Source Laboratory test result [facility] ([facility]) Color Laboratory test result [facility] ([facility]) Clarity Laboratory test result [facility] ([facility]) Spec [place] 1.020 1.001-1.030 [facility] ([facility]) Glucose 50 Abnormal (applies to non-numeric res ults) [facility] ([facility]) pH 8 5-9 [facility] ([facility]) Bilirubin Laboratory test result [facility] ([facility]) Ketone 15 Abnormal (applies to non-numeric res ults) [facility] ([facility]) Nitrite Laboratory test result [facility] ([facility]) Protein Laboratory test result [facility] ([facility]) Blood Laboratory test result [facility] ([facility]) Leuk Est 500 Abnormal (applies to non-numeric res ults) [facility] ([facility]) Urobilinogen Laboratory test result [facility] ([facility]) Microscopic Laboratory test result M [facility] ([facility]) RBC Laboratory test result [facility] ([facility]) WBC Laboratory test result [facility] ([facility]) Epithelial Laboratory test result Abnormal (applies to non -numeric results) [facility] ([facility]) ID Date Data Source [id number] 11/12/2020 10:57:[address] [facility] Name Value Range Interpretation Code Description Data Dolores rce(s) Supporting Document(s) CULTURE URINE [facility] _CULTURE URINE_$$[id number]$$164167$$476279$$699162$$035312$$055531$$683569$$308245$$616840$$ 766035$$167639$$578431$$617999$$939744$$914300$$438368$$539257$$142576$$996740$$ 100429$$228243$$023501$$667942$$538864$$582063$$630026$$972087 -- Continued on next page --Patient: CYN GARRISON Order: [id number] Page 2Culture: CULTURE URINE Status: Final ==== -- Continued on next page --Patient: CYN GARRISON Order: Page 2Culture: CULTURE URINE Status: Prelim ===== -- Continued on next page --Patient: CYN GARRISON Order: [id number] Page 2Culture: CULTURE URINE Status: Prelim ===== -- Continued on next page --Patient: CYN GARRISON Order: Page 2Culture: CULTURE URINE Status: Prelim =====$$[id number]$$[id number] DATE/TIME: 11/12/2020 08:06Culture: CULTURE URINE Status: FinalIsolate 1 Acinetobacter baumannii Flag: A . . . . . . .9Greater than 100,000 colony forming units per mL Previous result entered on 11/11/2020 09:33 ET Acinetobacter baumannii Previous result entered on 11/10/2020 15:22 ET Gram negative rods Previous result entered on 11/10/2020 13:46 ET Gram negative rodsUrine Culture,Comprehensive: [id number] baumannii Flag: APatient: CYN GARRISON Order: [id number] Page 3Culture: CULTURE URINE Status: Final ====ISOLATE [...] S S . . . . . .18772-8Aptzfhetz S S . . . . . .6652- 2Piperacillin I I . . . . . .408-5Tetracycline S S . . . . . .496-0Tobramycin S S . . . . . .508-2Trimethoprim/Sulfa S S . . . . . 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 CLARITY clear NORMAL: Clear [facility] Specific gravity of Urine by Test strip 1.020 1.001 - 1.030 [facility] pH 8 5 - 9 [facility] al Glucose [Mass/volume] in Urine by Test strip 50 NORMAL: Negat [facility] Bilirubin.total [Presence] in Urine by Test strip NEG NORMAL: Negative [facility] Ketones [Presence] in Urine by Test strip 15 NORMAL: Negative [facility] Protein [Mass/volume] in Urine by Test strip NEG NORMAL: Negat nancy [facility] Nitrite [Presence] in Urine by Test strip NEG NORMAL: Negative [facility] BLOOD NEG NORMAL: Negative [facility] Leukocyte esterase [Presence] in Urine by Test strip 500 JAVAN L: Negative [facility] Urobilinogen [Mass/volume] in Urine by Test strip NOR less kavon n 1.0 mg/dL [facility] MICROSCOPIC See Below [facility] ital WBC 1 - 3 NORMAL: NONE SEEN [facility] Erythrocytes [#/volume] in Urine by Test strip None Seen NORMAL: NON E SEEN [facility] EPITHELIAL MODERATE NORMAL: NONE SEEN A [facility] ID Date Data Source [id number] 06/04/2020 05:24:00 PM EST [facility] Procedure Performed By: [facility] [address] [place] [address] Director: Octavio Luke MD Name Value Range Interpretation Code Description Data Dolores rce(s) Supporting Document(s) Urine Culture Normal (applies to non-numeric re sults) [facility] ID Date Data Source [id number] 06/05/2020 07:53:00 AM EST [facility] Procedure Performed By: [facility] [address] [place] [address] Director: Octavio Luke MD Mixed drew: Mixed drew, probable contamination. Name Value Range Interpretation Code Description Data Dolores rce(s) Supporting Document(s) ID Date Data Source [id number] 06/02/2020 01:44:00 PM EST [facility] Name Value Range Interpretation Code Description Data Dolores rce(s) Supporting Document(s) CF Mutation Interpretation () Normal (applies to n on-numeric results) [facility] Cystic Fibrosis Mutation Panel was cance lled on 05/23/2020 at 08:49; Duplicate test request. Test canceled, ordered in duplicate with order number [id number] ( ). Test Performed by: [place] [address] Section [employer] W[employer]: Jose Cesar M.D. Ph.D.; CLIA# [id number] ID Date Data Source [id number] 05/21/2020 01:51:00 AM EDT [facility] Name Value Range Interpretation Code Description Data Dolores rce(s) Supporting Document(s) Varicella-Zoster IgG Ab,S res See Note No rmal (applies to non-numeric results) [facility] Absence of detectable Varicella Zoster v irus IgG antibodies. A negative result generally indicates no detectable antibody, but does not rule out acute infection. If VZV exposure is suspected, a second sample should be collected and tested no less than one or two weeks later. Test performed or referred [place] [address] ID Date Data Source [id number] 05/21/2020 01:51:00 AM EDT [facility] Name Value Range Interpretation Code Description Data Dolores rce(s) Supporting Document(s) Toxoplasma Ab,IgM Negative Normal (applies to non-numeri c results) [facility] No IgM antibodies to T. gondii detected. Results may be negative in patients with recent infection or who are significantly immunosuppressed. Test Performed by: [facility] [address] [place] [address] Section [employer] Warden: Jose Cesar M.D. Ph.D.; CLIA# [id number] ID Date Data Source [id number] 05/21/2020 01:51:00 AM EDT [facility] Name Value Range Interpretation Code Description Data Dolores rce(s) Supporting Document(s) HBELEC Hemoglobin A2 2.0-3.3 Normal (applies to non-num екатерина results) [facility] HBELC Hemoglobin F 0.0-0.9 Normal (applies to non-numer ic results) [facility] ADDITIONAL INFORMATIO N This test has been modified from the bean viner's instructions. Its performance characteristics were determined by [facility] in a manner consistent with CLIA requirements. This test has not been cleared or approved by the U.S. Food and Drug Administration. HBELC Hemoglobin A 95.8-98.0 Normal (applies to non-numer ic results) [facility] HBEL[facility] Variant Normal (applies to non-numeric resul ts) [facility] REFERENCE VALUE------ No abnormal variants ADDITIONAL INFORMATION This test has been modified from the bean viner's instructions. Its performance characteristics were determined by [facility] in a manner consistent with CLIA requirements. This test has not been cleared or approved by the U.S. Food and Drug Administration. HBELC Interpretation Normal (applies to non-num екатерина results) [facility] No electrophoretic evidence of abnormal hemoglobin [...] Analysis). Additional sample required. Test Performed by: [address] [address] Section [employer] Warden: Jose Cesar M.D. Ph.D.; CLIA# [id number] ID Date Data Source [id number] 05/21/2020 01:51:00 AM EDT [facility] Name Value Range Interpretation Code Description Data Dolores rce(s) Supporting Document(s) Toxoplasma Ab,IgG result Negative Normal (applies to non -numeric results) [facility] Toxoplasma IgG Value Normal (applies to non-num екатерина results) [facility] REFERENCE VALUE------ <=9 IU/mL (Negative) 10-11 IU/mL (Equivocal) >=12 IU/mL (Positive) Test Performed by: [facility] [address] [place] [address] Section [employer] Fire Warden: Jose Cesar M.D. Ph.D.; CLIA# [id number] ID Date Data Source [id number] 05/19/2020 07:04:00 PM EDT [facility] Name Value Range Interpretation Code Description Data Dolores rce(s) Supporting Document(s) Lead,Blood (Venous) result <5.0 Normal (applies to n on-numeric results) [facility] ADDITIONAL INFORMATIO N Testing performed by Inductively Coupled Plasma-Mass Spectrometry (ICP-MS). This test was developed and its performance characteristics determined by [facility] in a manner consistent with CLIA requirements. This test has not been cleared or approved by the U.S. Food and Drug Administration. [facility] Patient Street Normal (applies to non-nume raphael results) [facility] Normal (applies to non-numeri c results) [facility] Patient State Normal (applies to non-numer ic results) [facility] Patient Zip [address] Normal (applies to non-numeric results) [facility] Patient [facility] Normal (applies to non-nume raphael results) [facility] Patient Phone [phone] Normal (applies to non-nume raphael results) [facility] Patient Race Normal (applies to non-numeri c results) [facility] Patient Ethnicity Normal (applies to non-n umeric results) [facility] Patient Occupation Normal (applies to non- numeric results) [facility] Patient Employer Normal (applies to non-nu meric results) [facility] Guardian Name,First Normal (applies to non -numeric results) [facility] Guardian Name,Last Normal (applies to non- numeric results) [facility] Provider Name Normal (applies to non-numer ic results) [facility] Provider Street Normal (applies to non-num екатерина results) [facility] Provider City Normal (applies to non-numer ic results) [facility] Provider State Normal (applies to non-nume raphael results) [facility] Provider Zip [address] Normal (applies to non-numeri c results) [facility] Provider Phone [phone] Normal (applies to non-num екатерина results) [facility] Submitting Lab Phone [phone] Normal (applies to non-numeric results) [facility] Test Performed by: [facility] [address] [place] [address] Section [employer] Warden: Jose Cesar M.D. Ph.D.; CLIA# [id number] ID Date Data Source [id number] 05/19/2020 06:48:00 PM EDT [facility] Name Value Range Interpretation Code Description Data Dolores rce(s) Supporting Document(s) Lead,Blood (Venous) result <5.0 Normal (applies to n on-numeric results) [facility] ADDITIONAL INFORMATIO N Testing performed by Inductively Coupled Plasma-Mass Spectrometry (ICP-MS). This test was developed and its performance characteristics determined by [facility] in a manner consistent with CLIA requirements. This test has not been cleared or approved by the U.S. Food and Drug Administration. [facility] Patient Street Normal (applies to non-nume raphael results) [facility] Patient City Normal (applies to non-numeri c results) [facility] Patient State Normal (applies to non-numer ic results) [facility] Zip [address] Normal (applies to non-numeric results) [facility] Patient County Normal (applies to non-nume raphael results) [facility] Patient Phone [phone] Normal (applies to non-nume raphael results) [facility] Patient Race Normal (applies to non-numeri c results) [facility] Patient Ethnicity Normal (applies to non-n umeric results) [facility] Patient Occupation Normal (applies to non- numeric results) [facility] Patient Employer Normal (applies to non-nu meric results) [facility] Guardian Name,First Normal (applies to non -numeric results) [facility] Guardian Name,Last Normal (applies to non- numeric results) [facility] Provider Name Normal (applies to non-numer ic results) [facility] Provider Street Normal (applies to non-num екатерина results) [facility] Provider City Normal (applies to non-numer ic results) [facility] Provider State Normal (applies to non-nume raphael results) [facility] Provider Zip [address] Normal (applies to non-numeri c results) [facility] Provider Phone [phone] Normal (applies to non-num екатерина results) [facility] Submitting Lab Phone [phone] Normal (applies to non-numeric results) [facility] Test Performed by: [facility] [address] [place] [address] Section [employer] Warden: Jose Cesar M.D. Ph.D.; CLIA# [id number] ID Date Data Source [id number] 05/17/2020 08:29:00 PM EDT [facility] Name Value Range Interpretation Code Description Data Dolores rce(s) Supporting Document(s) Hep Bs Ag result T-Test Nonreactive Normal (applies to non -numeric results) [facility] Test Performed By: [facility] [address] [place] [address] Director: Katja Luke MD ID Date Data Source [id number] 05/17/2020 08:29:00 PM T [facility] Name Value Range Interpretation Code Description Data Dolores rce(s) Supporting Document(s) Rubella Ab,IgG result >10.0 Normal (applies to non-nu meric results) [facility] Test Performed By: [facility] [address] [place] [address] Director: Katja Luke MD Interpretation of Results Less than 5.0 IU/mL - Negative for IgG antibodies to Rubella virus 5.0 - 9.9 IU/mL - Equivocal. Suggest repeat testing on new sample 10.0 IU/mL or greater - Positive for IgG antibodies to Rubella virus ID Date Data Source [id number] 05/17/2020 08:29:00 PM T [facility] Name Value Range Interpretation Code Description Data Dolores rce(s) Supporting Document(s) Hepatitis C Virus Ab result Nonreactive Norm al (applies to non-numeric results) [facility] Test Performed By: [facility] [address] [place] [address] Director: Katja Luke MD ID Date Data Source [id number] 05/17/2020 08:29:00 PM EDT [facility] Value Range Interpretation Code Description Data Dolores rce(s) Supporting Document(s) HIV Screen result Nonreactive Normal (applies to non-numer ic results) [facility] Test Performed By: [facility] [address] [place] [address] Director: Katja Luke MD ID Date Data Source [id number] 05/17/2020 08:29:00 PM EDT [facility] Value Range Interpretation Code Description Data Dolores rce(s) Supporting Document(s) Syphilis Serology result Nonreactive Normal (applies to non-numeric results) [facility] Test Performed By: [place] [address] Director: Katja Luke MD ID Date Data Source [id number] 05/17/2020 08:03:00 PM EDT [facility] Value Range Interpretation Code Description Data Dolores rce(s) Supporting Document(s) Hep C Ab-T Test Nonreactive Normal (applies to non-numeric results) [facility] Test Performed By: [place] [address] Director: Katja Luke MD ID Date Data Source [id number] 05/17/2020 08:03:00 PM EDT [facility] Value Range Interpretation Code Description Data Dolores rce(s) Supporting Document(s) HIV 1/2 Ab p24 Ag Screen Nonreactive Normal (applies to non-numeric results) [facility] Test Performed By: [facility] [address] [place] [address] Director: Katja Luke MD ID Date Data Source [id number] 05/17/2020 08:03:00 PM EDT [facility] Value Range Interpretation Code Description Data Dolores rce(s) Supporting Document(s) Syphilis Serology Nonreactive Normal (applies to non-numer ic results) [facility] Test Performed By: [facility] [address] [place] [address] Director: Katja Luke MD ID Date Data Source [id number] 05/17/2020 08:03:00 PM EDT [facility] Name Value Range Interpretation Code Description Data Dolores rce(s) Supporting Document(s) Rubella Ab,IgG >10.0 Normal (applies to non-numeric r esults) [facility] Test Performed By: [facility] [address] [place] [address] Director: Katja Luke MD Interpretation of Results Less than 5.0 IU/mL - Negative for IgG antibodies to Rubella virus 5.0 - 9.9 IU/mL - Equivocal. Suggest repeat testing on new sample 10.0 IU/mL or greater - Positive for IgG antibodies to Rubella virus ID Date Data Source [id number] 05/17/2020 08:03:00 PM EDT [facility] Value Range Interpretation Code Description Data Dolores rce(s) Supporting Document(s) Hep Bs Ag Result T-Test Nonreactive Normal (applies to non -numeric results) [facility] Test Performed By: [facility] [address] [place] [address] Director: Katja Luke MD ID Date Data Source [id number] 05/17/2020 01:17:00 PM EDT [facility] Name Value Range Interpretation Code Description Data Dolores rce(s) Supporting Document(s) Thyroid Stimulate Hormone TSH 0.358-3.74 No rmal (applies to non-numeric results) [facility] ID Date Data Source [id number] 05/17/2020 12:40:00 PM EDT [facility] Name Value Range Interpretation Code Description Data Dolores rce(s) Supporting Document(s) White Blood Count 3.5-10.5 Normal (applies to non-numeri c results) [facility] Red Blood Count 3.90-5.00 Normal (applies to non-numeric results) [facility] Hemoglobin 12.0-15.5 Normal (applies to non-numeric resul ts) [facility] Hematocrit 34.9-44.5 Normal (applies to non-numeric resul ts) [facility] Mean Corpuscular Volume 81.2-95.1 Normal (applies to non- numeric results) [facility] Mean Corpuscular Hgb 25.6-32.2 Normal (applies to non-num екатерина results) [facility] Mean Corpuscular Hgb Conc 32.0-36.0 Normal (applies to no n-numeric results) [facility] Red Cell Distribution Width 11.9-15.5 Normal (appli es to non-numeric results) [facility] Platelet Count 257 x10 3/uL 150-450 Normal (applies to non-numeric results) [facility] Mean Platelet Volume 9.4-12.4 Normal (applies to non-num екатерина results) [facility] Neutrophils% (Auto) 31.0-71.0 Normal (applies to non-nume raphael results) [facility] Lymphocytes% (Auto) 20.0-55.0 Normal (applies to non-nume raphael results) [facility] Monocytes% (Auto) 4.0-12.0 Normal (applies to non-numeri c results) [facility] Eosinophils% (Auto) 1.0-8.0 Below low normal [facility] Basophils% (Auto) 0.0-2.0 Normal (applies to non-numeri c results) [facility] Immature Granulocytes% (Auto) 0.0-2.0 Normal (nesha lies to non-numeric results) [facility] Neutrophils# (Auto) 1.50-6.20 Normal (applies to non-nume raphael results) [facility] Lymphocytes# (Auto) 1.20-4.00 Normal (applies to non-nume raphael results) [facility] Monocytes# (Auto) 0.00-0.90 Normal (applies to non-numeri c results) [facility] Eosinophils# (Auto) 0.00-0.50 Normal (applies to non-nume raphael results) [facility] Basophils# (Auto) 0.00-0.20 Normal (applies to non-numeri c results) [facility] Immature Granulocytes# (Auto) 0.00-7.00 No rmal (applies to non-numeric results) [facility] ID Date Data Source [id number] 05/20/2020 09:51:00 PM EDT [facility] Name Value Range Interpretation Code Description Data Dolores rce(s) Supporting Document(s) Varicella-Zoster IgG Ab,S res See Note No rmal (applies to non-numeric results) [facility] Absence of detectable Varicella Zoster v irus IgG antibodies. A negative result generally indicates no detectable antibody, but does not rule out acute infection. If VZV exposure is suspected, a second sample should be collected and tested no less than one or two weeks later. Test performed or referred by The [address] [address] ID Date Data Source [id number] 05/20/2020 09:51:00 PM EDT [facility] Name Value Range Interpretation Code Description Data [facility] rce(s) Supporting Document(s) [facility] Hemoglobin A2 2.0-3.3 Normal (applies to non-nume raphael results) [facility] Hemoglobin F 0.0-0.9 Normal (applies to non-numer ic results) [facility] ADDITIONAL INFORMATIO N This test has been modified from the bean viner's instructions. Its performance characteristics were determined by [facility] in a manner consistent with CLIA requirements. This test has not been cleared or approved by the U.S. Food and Drug Administration. [facility] Hemoglobin A 95.8-98.0 Normal (applies to non-numer ic results) [facility] Hemoglobin Variant Normal (applies to non -numeric results) [facility] REFERENCE VALUE------ No abnormal variants ADDITIONAL INFORMATION This test has been modified from the bean viner's instructions. Its performance characteristics were determined by [facility] in a manner consistent with CLIA requirements. This test has not been cleared or approved by the U.S. Food and Drug Administration. [facility] Hgb Electroph Interp Normal (applies to n on-numeric results) [facility] No electrophoretic evidence of abnormal hemoglobin [...] Analysis). Additional sample required. Test Performed by: [facility] - [address] [address] [employer] Fire Warden: Jose Cesar M.D. Ph.D.; CLIA# [id number] ID Date Data Source [id number] 05/20/2020 09:51:00 PM EDT [facility] Name Value Range Interpretation Code Description Data Dolores rce(s) Supporting Document(s) Toxoplasma Ab,IgM result Negative Normal (applies to non -numeric results) [facility] No IgM antibodies to T. gondii detected. Results may be negative in patients with recent infection or who are significantly immunosuppressed. Test Performed by: [facility] - [facility] [address] [place] [address] [employer] Warden: Jose Cesar M.D. Ph.D.; CLIA# [id number] ID Date Data Source [id number] 05/20/2020 09:51:00 PM EDT [facility] Name Value Range Interpretation Code Description Data Dolores rce(s) Supporting Document(s) Toxoplasma Ab,IgG result Negative Normal (applies to non -numeric results) [facility] Toxoplasma IgG Value Normal (applies to non-num екатерина results) [facility] REFERENCE VALUE------ <=9 IU/mL (Negative) 10-11 IU/mL (Equivocal) >=12 IU/mL (Positive) Test Performed by: [facility] [address] [place] [id number] [employer]: Jose Cesar M.D. Ph.D.; CLIA# [id number] ID Date Data Source [id number] 06/06/2020 07:56:00 AM EST [facility] HELPDESK MANAGER TEST TO BE ORDERED: PAP reflex HPV (HR)LAST MENSTRUAL PERIOD 04/05/20OURCE OF SPECIMEN Endo/ExocxCLINICAL FINDINGS PREVIOUS HELPDESK MANAGER HX HSIL 03/2017CLINICAL DIAGNOSIS Screening, low risk (cx) Name Value Range Interpretation Code Description Data Dolores rce(s) Supporting Document(s) Cytology Order HELPDESK MANAGER Pap result LAB SendOut No rmal (applies to non-numeric results) [facility] ID Date Data Source [id number] 05/19/2020 07:06:00 PM EDT [facility] Name Value Range Interpretation Code Description Data Dolores rce(s) Supporting Document(s) Ethanol, UDSPAIN Cutoff=0.020 Normal (applies to non-numer ic results) [facility] Amphetamine, UDSPAIN Krmrgn=4118 Normal (applies to non-nu meric results) [facility] Amphetamine test includes Amphetamine an d Methamphetamine. Barbiturates, UDSPAIN Xkgxer=959 Normal (applies to non-nu meric results) [facility] Benzodiazepines, UDSPAIN Erwezd=974 Normal (applies to non -numeric results) [facility] Cannabinoids, UDSPAIN Cutoff=20 Normal (applies to non-nu meric results) [facility] Cocaine, UDSPAIN Egyxqg=171 Normal (applies to non-numeric results) [facility] Opiates, UDSPAIN Txzvue=920 Normal (applies to non-numeric results) [facility] Opiate test includes Codeine, Morphine, Hydromorphone, Hydrocodone. Oxyco/Oxymorphone, UDSPAIN Aqhewm=567 Normal (applie s to non-numeric results) [facility] Test includes Oxycodone and Oxymorphone Phencyclidine, UDSPAIN Cutoff=25 Normal (applies to non-n umeric results) [facility] Methadone, UDSPAIN Mavogf=941 Normal (applies to non-numer ic results) [facility] Propoxyphene, UDSPAIN Qwhbrb=185 Normal (applies to non-nu meric results) [facility] Meperidine, UDSPAIN Urtbvn=165 Normal (applies to non-nume raphael results) [facility] This test was developed and its performa nce characteristics determined by [facility]. It has not been cleared or approved by the Food and Drug Administration. Tramadol, UDSPAIN Gsryfk=025 Normal (applies to non-numeri c results) [facility] Creatinine, UDSPAIN 20.0-300.0 Normal (applies to non-nume raphael results) [facility] Performed at: [facility] [address] [id number] [employer] W[employer]: Romana Philippe MD, Phone: [phone] ID Date Data Source [id number] 05/19/2020 07:06:00 PM EDT [facility] Name Value Range Interpretation Code Description Data Dolores rce(s) Supporting Document(s) Yolette species Negative Normal (applies to non-numeric results) [facility] Gardnerella vaginalis Negative Very abnormal (applies to non-numeric units [facility] Trichomonas vaginalis Negative Normal (applies to non-nu meric results) [facility] Performed at: [facility] [address] [id number] [employer] Warden: Romana Philippe MD, Phone: [phone] ID Date Data Source [id number] 05/19/2020 06:56:00 PM EDT [facility] Name Value Range Interpretation Code Description Data Dolores rce(s) Supporting Document(s) Ethanol,UDSPAIN Cutoff=0.020 Normal (applies to non-numeri c results) [facility] Amphetamine,UDSPAIN Xhvjyh=3954 Normal (applies to non-num екатерина results) [facility] Amphetamine test includes Amphetamine an d Methamphetamine. Barbiturates, UDSPAIN Taamzw=325 Normal (applies to non-nu meric results) [facility] Benzodiazepines,UDSPAIN Rnbxzv=667 Normal (applies to non- numeric results) [facility] Cannabinoids, UDSPAIN Cutoff=20 Normal (applies to non-nu meric results) [facility] Cocaine, UDSPAIN Kfsfcg=076 Normal (applies to non-numeric results) [facility] Opiates,UDSPAIN Wrxdlw=108 Normal (applies to non-numeric results) [facility] Opiate test includes Codeine, Morphine, Hydromorphone, Hydrocodone. Oxyco/Oxymorphone, UDSPAIN Ujjkta=668 Normal (applie s to non-numeric results) [facility] Test includes Oxycodone and Oxymorphone Phencyclidine, UDSPAIN Cutoff=25 Normal (applies to non-n umeric results) [facility] Methadone, UDSPAIN Lycmfw=263 Normal (applies to non-numer ic results) [facility] Propoxyphene, UDSPAIN Ozxfsb=878 Normal (applies to non-nu meric results) [facility] Meperidine, UDSPAIN Opllsl=018 Normal (applies to non-nume raphael results) [facility] This test was developed and its performa nce characteristics determined by [facility]. It has not been cleared or approved by the Food and Drug Administration. Tramadol,UDSPAIN Uppafa=890 Normal (applies to non-numeric results) [facility] Creatinine, UDSPAIN 20.0-300.0 Normal (applies to non-nume raphael results) [facility] Performed at: [facility] [address] [id number] [employer] Warden: Romana Philippe MD, Phone: [phone] ID Date Data Source [id number] 05/19/2020 06:56:00 PM EDT [facility] Name Value Range Interpretation Code Description Data Dolores rce(s) Supporting Document(s) AFFDNA Yolette species Negative Normal (applies to non-n umeric results) [facility] AFFDNA Gardnerella vaginalis Negative Harmony y abnormal (applies to non-numeric units [facility] AFFDNA Trichomonas vaginalis Negative Normal (appl ies to non-numeric results) [facility] Performed at: - [facility] [id number] [employer] Warden: Romana Phiilppe MD, Phone: [phone] ID Date Data Source [id number] 05/19/2020 02:56:00 PM EDT [facility] Name Value Range Interpretation Code Description Data Dolores rce(s) Supporting Document(s) Chlamydia,Urine result Negative Normal (applies to non-n umeric results) [facility] Test Performed By: [facility] [address] [place] [address] Director: Katja Luke MD . GC Urine result Negative Normal (applies to non-numeric results) [facility] Test Performed By: [facility] [address] [place] [address] Director: Katja Luke MD . Methodology: Second generation nucleic acid amplification. ID Date Data Source [id number] 05/19/2020 02:48:00 PM EDT [facility] Name Value Range Interpretation Code Description Data Dolores rce(s) Supporting Document(s) Chlamydia,Urine Negative Normal (applies to non-numeric results) [facility] Test Performed By: [facility] [address] [place] [address] Director: Katja Luke MD . GC Urine Negative Normal (applies to non-numeric resul ts) [facility] Test Performed By: [facility] [address] [place] [address] Director: Katja Luke MD . Methodology: Second generation nucleic acid amplification. ID Date Data Source [id number] 05/19/2020 10:35:[address] [facility] spital Procedure Performed By: [facility] [address] [place] [address] Director: Octavio Luke MD Mixed drew: Mixed drew, probable contamination. Name Value Range Interpretation Code Description Data Dolores rce(s) Supporting Document(s) ID Date Data Source [id number] 05/19/2020 10:19:00 AM EDT [facility] Procedure Performed By: [facility] [address] [place] [address] Director: Octavio Luke MD Name Value Range Interpretation Code Description Data Dolores rce(s) Supporting Document(s) Urine Culture Normal (applies to non-numeric re sults) [facility] ID Date Data Source [id number] 05/18/2020 07:31:00 AM EDT [facility] Name Value Range Interpretation Code Description Data Dolores rce(s) Supporting Document(s) Bupren Screen,Ur wRfx LCI SO Negative Normal (appl ies to non-numeric results) [facility] Test Performed By: [facility] [address] [place] [address] Director: Katja Luke MD Therapeutic Drug Threshold for Buprenorphine: 5 ng/mL All positive findings are presumptive and unconfirmed. Confirmation of positive Buprenorphine is automatically reflexed and sent to reference laboratory. Unconfirmed results must not be used for non- medical purposes (i.e. pre-employment and legal purposes) ID Date Data Source [id number] 05/18/2020 12:55:00 AM EDT [facility] Name Value Range Interpretation Code Description Data Dolores rce(s) Supporting Document(s) Bupren Scrn,Ur wRfx LCI SO res Negative N ormal (applies to non-numeric results) [facility] Test Performed By: [facility] [address] [place] [address] Director: Katja Luke MD Therapeutic Drug Threshold for Buprenorphine: 5 ng/mL All positive findings are presumptive and unconfirmed. Confirmation of positive Buprenorphine is automatically reflexed and sent to reference laboratory. Unconfirmed results must not be used for non-medical purposes (i.e. pre-employment and legal purposes) ID Date Data Source [id number] 10/01/2020 10:14:00 AM EST [facility] Name Value Range Interpretation Code Description Data Dolores rce(s) Supporting Document(s) ID Date Data Source [id number] 05/16/2020 02:00:00 PM EDT [facility] Imaging Services Department Imaging Report [address] [place], [place] [address] %(RAD)RES..[email or web address]("line") Name: BLADIMIR ADDISON : 1995 Age/Sex: 24F Ordering Provider: DUKE Mcdonald Med Rec #: [id number] Reg Status: DEP REF Room #: Date of Service: 05/16/20 Report Number: [id number] cc:DUKE Mcdonald; Rj Santamaria MD Send Report To: [id number] US/US Transvaginal OB Reason for exam: DATING,VIABILITY FINDINGS: LMP: Unknown = EDC EGA = wks days Earliest U/S Today = EDC 01-10-21 EGA= 5 wks 6 days Gestation: Single. Gestational sac size: 19.7 x 11.1 x 17.7 mm = 16.2 mm AVw 3d. Antigo Rump Length: 2.8 mm = 5w 6d [...] By: Doug Ballard MD <Electronically signed by Doug Ballard MD> 05/17/20 1149 Dictation Date/Time: 05/16/20 1208 Transcribed Date/Time: 05/16/20 1400 Economic Developer: ELVIA Name Value Range Interpretation Code Description Data Dolores rce(s) Supporting Document(s) Procedure Social History Code Duration Value Status Description Data Source(s ) 01/10/2021 12:00:00 AM EDT completed [facility] ([facility]) Vital Signs ID Date Data Source UNK Name Value Range Interpretation Code Description Data Source(s) Systolic blood pressure 102 mm[Hg] 102 mm[Hg] [facility] ([facility]) Diastolic blood pressure 70 mm[Hg] 70 mm[Hg] [facility] ([facility]) Heart rate 106 /min 106 /min [facility] ([facility]) Respiratory rate 16 /min 16 /min [facility] ( [facility]) Oxygen saturation in Arterial blood by Pulse oximetry 98 % 98 % [facility] ([facility]) Body weight 162.38 [lb_av] 162.38 [lb_av] [facility] T ([facility]) Body weight 73.653 kg 73.653 kg [facility] ([facility]) Body height 61 [in_i] 61 [in_i] [facility] ([facility]) 5'1" Body mass index (BMI) [Ratio] 30.7 kg/m2 30.7 k g/m2 [facility] ([facility]) Body surface area Derived from formula 1.73 m2 1.73 m2 [facility] ([facility]) Heart rate 91 /min 91 /min [facility] ([facility]) Respiratory rate 16 /min 16 /min [facility] ( [facility]) Oxygen saturation in Arterial blood by Pulse oximetry 100 % 100 % [facility] ([facility]) Body weight 162.00 [lb_av] 162.00 [lb_av] [facility] ([facility]) Body weight 73.483 kg 73.483 kg [facility] ([facility]) Body height 61 [in_i] 61 [in_i] [facility] ([facility]) 5'1" Systolic blood pressure 112 mm[Hg] 112 mm[Hg] M [facility] ([facility]) Diastolic blood pressure 68 mm[Hg] 68 mm[Hg] [facility] ([facility]) Body mass index (BMI) [Ratio] 30.6 kg/m2 30.6 k g/m2 [facility] ([facility]) Body surface area Derived from formula 1.73 m2 1.73 m2 [facility] ([facility]) Body weight 177.00 [lb_av] 177.00 [facility]_av[facility] Body height 61 [in_i] 61 [in_i] [facility] ([facility]) 5'1" Body mass index (BMI) [Ratio] 33.4 kg/m2 33.4 k g/m2 [facility] ([facility]) Body temperature 98.2 [degF] 98.2 [degF] [facility] ([facility]) Body weight 80.287 kg 80.287 kg [facility] ([facility]) Body surface area Derived from formula 1.79 m2 1.79 m2 [facility] ([facility]) Systolic blood pressure 132 mm[Hg] 132 mm[Hg] [facility] Diastolic blood pressure 78 mm[Hg] 78 mm[Hg] [facility] ([facility]) Heart rate 80 /min 80 /min [facility] ([facility]) Systolic blood pressure 128 mm[Hg] 128 mm[Hg] [facility] Diastolic blood pressure 76 mm[Hg] 76 mm[Hg] [facility] ([facility]) Heart rate 87 /min 87 /min [facility] ([facility]) Body temperature 98.2 [degF] 98.2 [degF] [facility] ([facility]) Body weight 178.00 [lb_av] 178.00 [lb_av] [facility] ([facility]) Body weight 80.741 kg 80.741 kg [facility] ([facility]) Body height 61 [in_i] 61 [in_i] [facility] ([facility]) 5'1" Body mass index (BMI) [Ratio] 33.6 kg/m2 33.6 k g/m2 [facility] ([facility]) Body surface area Derived from formula 1.80 m2 1.80 m2 [facility] ([facility]) Diastolic blood pressure 84 mm[Hg] 84 mm[Hg] [facility] ([facility]) Heart rate 83 /min 83 /min [facility] ([facility]) Body weight 177.00 [lb_av] 177.00 [lb_av] [facility] ([facility]) Body weight 80.287 kg 80.287 kg [facility] ([facility]) Body height 61 [in_i] 61 [in_i] [facility] ([facility]) 5'1" Body mass index (BMI) [Ratio] 33.4 kg/m2 33.4 k g/m2 [facility] ([facility]) Body surface area [facility] 1.79 [facility] 1[facility] Systolic blood pressure 132 mm[Hg] 132 mm[Hg] M [facility] ([facility]) ID Date Data Source [id number] 02/19/2021 03:18:46 PM EDT [facility] Name Value Range Interpretation Code Description Data Source(s) WEIGHT RECORDED 177.00 pounds 177.00 pounds [facility] Height 61 Inches 061 Inches [facility] ID Date Data Source [id number] 01/06/2021 05:48:30 PM EDT [facility] Name Value Range Interpretation Code Description Data Source(s) WEIGHT RECORDED 175.00 pounds 175.00 pounds [facility] Height 61 Inches 061 Inches [facility] ID Date Data Source [id number] 12/22/2020 02:43:47 PM EDT [facility] Name Value Range Interpretation Code Description Data Source(s) WEIGHT RECORDED 160.00 pounds 160.00 pounds [facility] Height 61 Inches 061 Inches [facility]
--- NOTE | 2021-07-08 18:14 | REP ---
INDICATION: vag bleeding, 7wks preg. trans abdominal only pls. COMPARISON: None. TECHNIQUE: Transabdominal obstetric sonography. The patient declined transvaginal scanning. FINDINGS: Real-time scanning demonstrates a small endometrial sac measuring 13.7 mm in mean sac size diameter. Six week 1 day gestational age estimate based on sac size diameter. There appears to be a small yolk sac within the sac but no embryonic pole is identified. The left ovary could not be seen. No left adnexal mass is observed. Normal right ovary is seen measuring 2.3 x 1.8 x 2.2 cm. It is Doppler flow is normal, resistive index 0.55. IMPRESSION: Intrauterine gestational sac containing a small yolk sac but no embryonic pole visible. Six weeks 1 day by mean sac size diameter criteria. viability cannot be confirmed. Clinical and possibly sonographic follow-up suggested. <Electronically signed by Jesus Nair > 07/08/21 [id number]
[2021-07-08 18:22] LABS: BASO % 0.5 % (0.0-1.0); EOS # 0.1 10^3/uL (0.0-0.5); EOS % 1.1 % (0.0-3.0); HEMATOCRIT 41.4 % (36.0-47.0); HEMOGLOBIN 13.6 g/dl (12.0-15.5); LYMPH # 2.1 10^3/uL (1.5-5.0); LYMPH % 23.8 % (24.0-44.0); MEAN CORPUSCULAR HEMOGLOBIN 29.1 pg (27.0-33.0); MEAN CORPUSCULAR HGB CONC 32.9 g/dl (32.0-36.5); MEAN CORPUSCULAR VOLUME 88.5 fl (80.0-96.0); MONO # 0.7 10^3/uL (0.0-0.8); MONO % 8.1 % (2.0-8.0); NEUTROPHILS # 5.8 10^3/uL (1.5-8.5); NEUTROPHILS % 65.8 % (36.0-66.0); PLATELET COUNT, AUTOMATED 266 10^3/uL (150-450); RED BLOOD COUNT 4.68 10^6/uL (4.00-5.40); WHITE BLOOD COUNT 8.8 10^3/uL (4.0-10.0)
[2021-07-08 18:33] LABS: APPEARANCE, URINE CLEAR (CLEAR); BACTERIA, URINE AUTO NEGATIVE (NEGATIVE); BILIRUBIN, URINE AUTO NEGATIVE (NEGATIVE); BLOOD, URINE BLOOD 3+ (NEGATIVE); COLOR, URINE STRAW (YELLOW); GLUCOSE, URINE (UA) AUTO NEGATIVE (NEGATIVE); KETONE, URINE AUTO NEGATIVE (NEGATIVE); LEUKOCYTE ESTERASE, URINE AUTO NEGATIVE (NEGATIVE); NITRITE, URINE AUTO NEGATIVE (NEGATIVE); PROTEIN, URINE AUTO NEGATIVE (NEGATIVE); RBC, URINE AUTO 0 /HPF (0-3); SPECIFIC GRAVITY URINE AUTO 1.002 (1.002-1.035); SQUAMOUS EPITHELIAL CELL UR AU 0 /HPF (0-6); UROBILINOGEN, URINE AUTO 0.2 mg/dL (0.0-2.0); WBC, URINE AUTO 0 /HPF (0-3)
[2021-07-08 19:39] VITALS: BP 106/58
== END 2021-07-08 20:12 | disposition home or self-care (01) ==
LOC: M ED 13:06
DX: O20.8 Other hemorrhage in early pregnancy (principal); Z3A.01 Less than 8 weeks gestation of pregnancy; O99.511 Diseases of the respiratory system complicating pregnancy, first trimester; O99.331 Smoking (tobacco) complicating pregnancy, first trimester

== ENCOUNTER 2021-07-10 11:54 | Emergency (ER) | payer OTHER ==
[~2021-07-10] VITALS: Ht 154.9 cm; Wt 73.5 kg
[2021-07-10 14:52] LABS: BASO # 0.1 10^3/uL (0.0-0.2); BASO % 0.4 % (0.0-1.0); EOS # 0.1 10^3/uL (0.0-0.5); EOS % 0.6 % (0.0-3.0); HEMATOCRIT 39.4 % (36.0-47.0); LYMPH # 1.7 10^3/uL (1.5-5.0); LYMPH % 13.4 % (24.0-44.0); MEAN CORPUSCULAR HEMOGLOBIN 29.1 pg (27.0-33.0); MEAN CORPUSCULAR VOLUME 88.3 fl (80.0-96.0); NEUTROPHILS # 9.6 10^3/uL (1.5-8.5); PLATELET COUNT, AUTOMATED 249 10^3/uL (150-450); RED BLOOD COUNT 4.46 10^6/uL (4.00-5.40); WHITE BLOOD COUNT 12.5 10^3/uL (4.0-10.0)
[2021-07-10] MEDS ORDERED: ACETAMINOPHEN 325 MG TAB PO ONE (15:05)
[2021-07-10 15:39] LABS: BLOOD UREA NITROGEN 10 MG/DL (7-18); CALCIUM LEVEL 9.6 MG/DL (8.5-10.1); CARBON DIOXIDE LEVEL 27 MEQ/L (21-32); CHLORIDE LEVEL 108 MEQ/L (98-107); GLOMERULAR FILTRATION RATE > 60.0 (>60); GLUCOSE, FASTING 82 MG/DL (70-100); HCG, SERUM QUANTITATIVE 4531 MIU/ML; POTASSIUM SERUM 4.3 MEQ/L (3.5-5.1); SODIUM LEVEL 140 MEQ/L (136-145)
[2021-07-10 16:59] VITALS: BP 102/57
== END 2021-07-10 17:35 | disposition home or self-care (01) ==
LOC: M ED 14:12
DX: O03.9 Complete or unspecified spontaneous abortion without complication (principal); O20.8 Other hemorrhage in early pregnancy; O99.891 Other specified diseases and conditions complicating pregnancy; O99.330 Smoking (tobacco) complicating pregnancy, unspecified trimester; Z3A.00 Weeks of gestation of pregnancy not specified

== ENCOUNTER 2021-11-05 13:57 | Emergency (ER) | payer OTHER ==
[~2021-11-05] VITALS: Ht 154.9 cm; Wt 76.2 kg
[2021-11-05 14:03] VITALS: BP 148/75
== END 2021-11-05 16:56 | disposition home or self-care (01) ==
LOC: M ED 13:57
DX: O26.891 Other specified pregnancy related conditions, first trimester (principal); M25.562 Pain in left knee; Z3A.10 10 weeks gestation of pregnancy; Z79.899 Other long term (current) drug therapy

== ENCOUNTER 2022-02-13 21:57 | Emergency (ER) | payer OTHER ==
[~2022-02-13] VITALS: Ht 154.9 cm; Wt 72.8 kg
[2022-02-13 22:00] VITALS: BP 127/63
== END 2022-02-13 22:32 | disposition left against medical advice (07) ==
LOC: M ED 21:57
DX: Z53.29 Procedure and treatment not carried out because of patient's decision for other reasons (principal)

== ENCOUNTER 2022-02-15 21:57 | Outpatient (CLI) | payer OTHER ==
[~2022-02-15] VITALS: Ht 154.9 cm; Wt 71.8 kg
[2022-02-15 22:12] VITALS: BP 118/78
[2022-02-15] MEDS ORDERED: TUMS500C PO (22:17)
[2022-02-15] MEDS ORDERED: ACET325C5 PO (22:17)
== END 2022-02-16 00:34 | disposition home or self-care (01) ==
LOC: M LDO 21:57
PROVIDERS: ATTEND Advanced Practice Midwife
DX: O36.8120 Decreased fetal movements, second trimester, not applicable or unspecified (principal); O99.332 Smoking (tobacco) complicating pregnancy, second trimester; F17.210 Nicotine dependence, cigarettes, uncomplicated; O99.322 Drug use complicating pregnancy, second trimester; F12.20 Cannabis dependence, uncomplicated; Z3A.24 24 weeks gestation of pregnancy

== ENCOUNTER → 2022-03-21 | Outpatient (REF) ==
[~2022-03-21] MED LIST changes: +ACET325C5 PO; +TUMS500C PO
[2022-03-22 07:07] LABS: HERPES ZOSTER, VARICELLA IgG <135 index (Immune >165)
== END ==
LOC: M LAB 10:01
PROVIDERS: ATTEND Nurse Practitioner Adult Health
DX: Z00.00 Encounter for general adult medical examination without abnormal findings (principal)

== ENCOUNTER → 2022-04-02 | Outpatient (REF) | LOC: M EMP 15:32 | PROVIDERS: ATTEND Family Medicine | DX: Z11.52 Encounter for screening for COVID-19 (principal) ==

== ENCOUNTER 2022-05-06 13:10 | Emergency (ER) | payer OTHER ==
[~2022-05-06] VITALS: Ht 154.9 cm; Wt 75.0 kg
[2022-05-06] MEDS ORDERED: LIDOCAINE 2% W/ EPINEPHRINE 1.7 ML DENTAL INJ SM ONE (14:25)
[2022-05-06] MEDS ORDERED: BENZOCAINE 20% GEL 9GM TUBE (ANBESOL MAX STRENGTH) TOP ONE (14:25)
[2022-05-06] MEDS ORDERED: AMOX875T2 PO (14:54)
[2022-05-06 15:03] VITALS: BP 123/74
== END 2022-05-06 15:05 | disposition home or self-care (01) ==
LOC: M ED 13:10
DX: K02.9 Dental caries, unspecified (principal); K08.89 Other specified disorders of teeth and supporting structures; F17.200 Nicotine dependence, unspecified, uncomplicated

== ENCOUNTER 2022-05-18 11:09 | Outpatient (CLI) | payer OTHER ==
[~2022-05-18] VITALS: Ht 154.9 cm; Wt 75.9 kg
[~2022-05-18 11:09] MED LIST changes: +AMOX875T2 PO
[2022-05-18] MEDS ORDERED: HOME MED LIST COMPLETE! XX SCH (11:30)
[2022-05-18 11:32] VITALS: BP 121/83
== END 2022-05-18 12:45 | disposition home or self-care (01) ==
LOC: M LDO 11:09
PROVIDERS: ATTEND Specialist
DX: O60.03 Preterm labor without delivery, third trimester (principal); O26.893 Other specified pregnancy related conditions, third trimester; N89.8 Other specified noninflammatory disorders of vagina; Z3A.38 38 weeks gestation of pregnancy